=== PATIENT | female | born 1950 | race Caucasian/White ===

== ENCOUNTER 2019-06-19 14:45 | Inpatient (IN) | payer MEDICARE, OTHER ==
[~2019-06-19] VITALS: Ht 160 cm; Wt 64.1 kg
[2019-06-19 15:28] LABS: BASO % 1 % (0-3); EOS % 1 % (0-3); HEMATOCRIT 46.6 % (36.0-47.0); HEMOGLOBIN 15.6 g/dL (12.0-15.5); LYMPH # 1.1 x10^3/uL (1.0-4.8); LYMPH % 18 % (24-48); MEAN CORPUSCULAR HEMOGLOBIN 33 pg (25-35); MEAN CORPUSCULAR HGB CONC 34 g/dL (31-37); MEAN CORPUSCULAR VOLUME 97 fL (79-100); MONO # 0.4 x10^3/uL (0.0-1.1); MONO % 6 % (0-9); NEUT # 4.5 x10^3uL (1.8-7.7); NEUT % 74 % (31-73); PLATELET COUNT 168 x10^3/uL (140-400); RED CELL DISTRIBUTION WIDTH 14.6 % (11.5-14.5)
[2019-06-19 15:47] LABS: ALBUMIN 3.3 g/dL (3.4-5.0); ALBUMIN/GLOBULIN RATIO 0.8 (1.0-1.7); CALCIUM 9.1 mg/dL (8.5-10.1); GFR 55.1; POTASSIUM 3.8 mmol/L (3.5-5.1); TOTAL BILIRUBIN 0.8 mg/dL (0.2-1.0); TOTAL PROTEIN 7.6 g/dL (6.4-8.2)
--- NOTE | 2019-06-19 16:18 | RAD ---
CT HEAD WO CONTRAST, CHEST AP ONLY Clinical indications: Altered mental status. Chest pain. NONCONTRAST HEAD CT Technique: Noncontrast axial cross sectional scanning of the head was performed. PQRS compliance Statement One or more of the following individualized dose reduction techniques were utilized for this study: 1. Automated exposure control 2. Adjustment of the mA and/or kV according to patient size 3. Use of iterative reconstruction technique COMPARISON: None available. Findings: No acute intracranial hemorrhage or midline shift or mass-effect or hydrocephalus or extra-axial fluid collection is seen. A large focus of encephalomalacia is seen involving the right temporal and occipital lobes consistent with an old cortical infarct. Old small lacunar infarcts of the brainstem and the upper right thalamus are seen. There is mild periventricular white matter hypodensity present within the parietal region of the centrum semiovale on the right side consistent with chronic small vessel ischemic disease here. No skull fracture or pneumocephalus is seen. No opacification of the mastoid sinuses or the middle ear cavities or the paranasal sinuses is seen. The maxillary sinuses are not completely seen in this study. Impression: No acute intracranial hemorrhage is seen. Old ischemic disease. CHEST AP ONLY Indications: Same. COMPARISON: None available. Findings: Bilateral diffuse interstitial lung disease is seen which may be acute or chronic in nature. No May B line's are seen. No lung mass or lung consolidation is evident. No pleural effusion or pneumothorax is seen. The heart size is prominent some of which is due to AP magnification. Sternotomy is evident. The mediastinum is unremarkable. Cephalization of pulmonary flow is seen. IMPRESSION: Bilateral interstitial lung disease and cephalization of pulmonary flow which may be acute or chronic in nature. Prominent heart size some of which is due to AP magnification. Electronically signed by: Liang Sanchez MD (06/19/2019 4:15 PM) [place] [id number]
[2019-06-19 17:18] LABS: BACTERIA,URINE 0 /HPF (0-FEW); BILIRUBIN,URINE NEG (NEG); CLARITY,URINE CLEAR; COLOR,URINE YELLOW; GLUCOSE,URINE NEG (NEG); NITRITE,URINE NEG (NEG); SQUAMOUS EPITHELIAL CELL,UR FEW /LPF; UROBILINOGEN,URINE 2 mg/dL (0.2 mg/dL)
--- NOTE | 2019-06-19 17:40 | ED.ADGEN ---
Past History Past Medical History: Anxiety, CHF, COPD, Depression, GERD, Hypertension Past Surgical History: Cancer Surgery, Other Alcohol Use: None Drug Use: None Adult General Chief Complaint Chief Complaint Altered mental status HPI HPI Patient is a [68-year-old female history of anxiety, depression, hypertension and left leg [id number] patient who presents with pressured speech, disorientation and confusion according to patient's family members and guardian this morning. Patient was recently treated for urinary tract infection yesterday CTA. No reported fever or back pain, nausea vomiting or sweats. No chest pain abdominal pain or flank pain. Family denies any history of psychosis but was scheduled for outpatient psychological evaluation in 1 month. Patient diverted from the [facility] patient alert and oriented to person and cooperative on ED arrival. Patient said with pressured speech, flight of ideas and manic behavior[] Review of Systems Review of Systems Review symptoms as per history of present illness. Due to the patient's All other systems were reviewed and found to be within normal limits, except as documented in this note. Allergies Allergies Allergies Coded Allergies Type Severity Reaction Last Updated Verified acetaminophen Allergy Unknown 06/19/19 Yes oxycodone Allergy Unknown 06/19/19 Yes Physical Exam Physical Exam Constitutional: Well developed, well nourished, smiling, hyper animated and euphoric.[] HENT: Normocephalic, atraumatic, bilateral external ears normal, oropharynx moist. [] Eyes: PERRLA, EOMI, conjunctiva normal, no discharge. [] Neck: Normal range of motion, no tenderness, supple, no stridor. [] Cardiovascular:Heart rate regular rhythm, no murmur [] Lungs & Thorax: Bilateral breath sounds clear to auscultation [] Abdomen: Bowel sounds normal, soft, no tenderness. [] Skin: Warm, dry, no erythema, no rash. [] Back: No tenderness, no CVA tenderness. [] Extremities: No tenderness, left knee above amputation[] Neurologic: Alert and oriented X person, normal motor function, normal sensory function, no focal deficits noted. [] Psychologic: Affect manic, pH pressured, judgment impaired,. Braxton speech with flight of ideas[] Current Patient Data Vital Signs Vital Signs Date Time Temp Pulse Resp B/P (MAP) Pulse Ox O2 Delivery O2 Flow Rate FiO2 06/19/19 16:49 89 18 135/86 (102) 98 Room Air 06/19/19 14:55 98.7 Lab Results Laboratory Tests Test 06/19/19 15:15 06/19/19 16:55 White Blood Count 6.0 x10^3/uL (4.0-11.0) Red Blood Count 4.80 x10^6/uL (3.50-5.40) Hemoglobin 15.6 g/dL (12.0-15.5) H Hematocrit 46.6 % (36.0-47.0) Mean Corpuscular Volume 97 fL (79-100) Mean Corpuscular Hemoglobin 33 pg (25-35) Mean Corpuscular Hemoglobin Concent 34 g/dL (31-37) Red Cell Distribution Width 14.6 % (11.5-14.5) H Platelet Count 168 x10^3/uL (140-400) Neutrophils (%) (Auto) 74 % (31-73) H Lymphocytes (%) (Auto) 18 % (24-48) L Monocytes (%) (Auto) 6 % (0-9) Eosinophils (%) (Auto) 1 % (0-3) Basophils (%) (Auto) 1 % (0-3) Neutrophils # (Auto) 4.5 x10^3uL (1.8-7.7) Lymphocytes # (Auto) 1.1 x10^3/uL (1.0-4.8) Monocytes # (Auto) 0.4 x10^3/uL (0.0-1.1) Eosinophils # (Auto) 0.0 x10^3/uL (0.0-0.7) Basophils # (Auto) 0.0 x10^3/uL (0.0-0.2) Sodium Level 138 mmol/L (136-145) Potassium Level 3.8 mmol/L (3.5-5.1) Chloride Level 100 mmol/L (98-107) Carbon Dioxide Level 30 mmol/L (21-32) Anion Gap 8 (6-14) Blood Urea Nitrogen 19 mg/dL (7-20) Creatinine 1.0 mg/dL (0.6-1.0) Estimated GFR (Cockcroft-Gault) 55.1 BUN/Creatinine Ratio 19 (6-20) Glucose Level 107 mg/dL (70-99) H Calcium Level 9.1 mg/dL (8.5-10.1) Total Bilirubin 0.8 mg/dL (0.2-1.0) Aspartate Amino Transferase (AST) 24 U/L (15-37) Alanine Aminotransferase (ALT) 20 U/L (14-59) Alkaline Phosphatase 172 U/L (46-116) H Troponin I Quantitative 0.018 ng/mL (0-0.055) Total Protein 7.6 g/dL (6.4-8.2) Albumin 3.3 g/dL (3.4-5.0) L Albumin/Globulin Ratio 0.8 (1.0-1.7) L Urine Collection Type Unknown Urine Color Yellow Urine Clarity Clear Urine pH 8.5 Urine Specific [place] 1.010 Urine Protein 30 mg/dl (NEG-TRACE) Urine Glucose (UA) Neg mg/dL (NEG) Urine Ketones (Stick) 15 mg/dL (NEG) Urine Blood Neg (NEG) Urine Nitrite Neg (NEG) Urine Bilirubin Neg (NEG) Urine Urobilinogen Dipstick 2 mg/dL (0.2 mg/dL) Urine Leukocyte Esterase Trace (NEG) Urine RBC 1-2 /HPF (0-2) Urine WBC 5-10 /HPF (0-4) Urine Squamous Epithelial Cells Few /LPF Urine Bacteria 0 /HPF (0-FEW) EKG EKG [EKG: Reviewed] Radiology/Procedures Radiology/Procedures [] Course & Med Decision Making Course & Med Decision Making Pertinent Labs and Imaging studies reviewed. (See chart for details) [Patient with acute onset psychotic episode without obvious medical cause. Psychiatric screening assessment requested for inpatient. Care to be endorsed endorsed to oncoming [facility] at 1800 with disposition pending.] Final Impression Final Impression [] Dragon Disclaimer Dragon Disclaimer This electronic medical record was generated, in whole or in part, using a voice recognition dictation system. SHINE SWANSON DO Jun 19, 2019 17:40
[2019-06-19] MEDS ORDERED: METHYL SALICYLATE/MENTHOL TOPICAL OINTMENT 57GM TUBE. TP PRN (20:45)
[2019-06-19] MEDS ORDERED: MAG HYDROX/AL HYDROX/SIMETH 30 ML ORAL.SUSP PO PRN (20:45)
[2019-06-19] MEDS ORDERED: MAGNESIUM HYDROXIDE 2,400 MG/30 ML ORAL.SUSP. PO PRN (20:45)
[2019-06-19] MEDS ORDERED: GABA400C7 PO (20:56)
[2019-06-19] MEDS ORDERED: ATOR40TA59 PO (20:56)
[2019-06-19] MEDS ORDERED: GABA300C8 PO (20:56)
[2019-06-19] MEDS ORDERED: OXYB5TAB10 PO (20:56)
[2019-06-19] MEDS ORDERED: LISI-338 PO (20:56)
[2019-06-19] MEDS ORDERED: METO25TA4 PO (20:56)
[2019-06-19] MEDS ORDERED: ASPI325T11 PO (20:56)
[2019-06-19] MEDS ORDERED: BUDE10.2 IH (20:56)
[2019-06-19] MEDS ORDERED: ALEN70TA6 PO (20:56)
[2019-06-19] MEDS ORDERED: FURO40TA4 PO (20:56)
[2019-06-19] MEDS ORDERED: MULT1TAB52 PO (20:56)
[2019-06-19] MEDS ORDERED: DULO30CA2 PO (20:56)
[2019-06-19] MEDS ORDERED: CHOL10003 PO (20:56)
[2019-06-19] MEDS ORDERED: LORA10TA3 PO (20:56)
[2019-06-19] MEDS ORDERED: CALC-157 PO (20:56)
[2019-06-19] MEDS ORDERED: LACT1CAP6 PO (20:56)
[2019-06-19] MEDS ORDERED: NON FORMULARY ITEM (Budesonide/Formoterol Fumarate (Symbicort 160-4.5 Mcg Inhaler) 2 PUFF) IH SCH (21:00)
[2019-06-19] MEDS ORDERED: HYDR-2155 PO (21:42)
[2019-06-19] MEDS: GABAPENTIN 400 MG CAPSULE. PO SCH (21:42)
[2019-06-19] MEDS: LACTOBACILLUS RHAMNOSUS GG 1 CAPSULE. PO SCH (21:42)
[2019-06-19] MEDS: ATORVASTATIN CALCIUM 20 MG TABLET PO SCH (21:43)
[2019-06-19] MEDS: CALCIUM CARB/VIT D3 500/200 TABLET PO SCH (21:43)
[2019-06-19] MEDS: OXYBUTYNIN CHLORIDE 5 MG TABLET PO SCH (21:43)
[2019-06-19] MEDS: METOPROLOL TART IMMED RELEASE 25 MG TABLET PO SCH (21:44)
[2019-06-19] MEDS: HYDROcodone/APAP 5/325MG 1 TAB TABLET PO PRN (21:50)
[2019-06-19 22:49] VITALS: BP 174/95
[2019-06-19 22:52] LABS: BARBITURATES NEG (NEG); BENZODIAZEPINES NEG (NEG); CANNABINOIDS NEG (NEG); COCAINE NEG (NEG); METHADONE NEG (NEG); OPIATES POS (NEG); PHENCYCLIDINE NEG (NEG)
[2019-06-19 22:58] LABS: AMPHETAMINE/METHAMPHETAMINE NEG (NEG)
[2019-06-20] MEDS ORDERED: ALBUTEROL SULFATE 2.5 MG/3 ML NEBU. ONE (05:01)
[2019-06-20 05:44] VITALS: BP 146/81
[2019-06-20] MEDS: ALBUTEROL SULFATE 2.5 MG/3 ML NEBU. NEB SCH ×4 (06:04→20:00)
--- NOTE | 2019-06-20 08:01 | EKG ---
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
[2019-06-20] MEDS ORDERED: ONDANSETRON ODT 4 MG TAB.RAPDIS PO PRN (08:30)
[2019-06-20] MEDS: NICOTINE 21MG PATCH. TD SCH (08:36)
[2019-06-20] MEDS: CHOLECALCIFEROL (VITAMIN D3) 1,000 UNIT TABLET PO SCH ×2 (08:38→12:30)
[2019-06-20] MEDS: FUROSEMIDE 40 MG TABLET PO SCH ×2 (08:38→12:30)
[2019-06-20] MEDS: LACTOBACILLUS RHAMNOSUS GG 1 CAPSULE. PO SCH ×3 (08:38→19:38)
[2019-06-20] MEDS: GABAPENTIN 300 MG CAPSULE. PO SCH ×2 (08:38→12:30)
[2019-06-20] MEDS: LISINOPRIL 5 MG TABLET. PO SCH ×2 (08:38→12:30)
[2019-06-20] MEDS: CETIRIZINE HCL 10 MG TABLET PO SCH ×2 (08:39→12:30)
[2019-06-20] MEDS: CALCIUM CARB/VIT D3 500/200 TABLET PO SCH ×3 (08:39→19:38)
[2019-06-20] MEDS: ASPIRIN ENTERIC COATED 325 MG TABLET.DR. PO SCH ×2 (08:39→12:30)
[2019-06-20] MEDS: MULTIVITAMIN with MINERAL TABLET. PO SCH ×2 (08:39→12:30)
[2019-06-20] MEDS: METOPROLOL TART IMMED RELEASE 25 MG TABLET PO SCH ×2 (08:39→19:34)
[2019-06-20] MEDS: OXYBUTYNIN CHLORIDE 5 MG TABLET PO SCH ×3 (08:40→19:35)
[2019-06-20] MEDS ORDERED: DULoxetine HCL 30 MG CAPSULE.DR PO SCH (09:00)
[2019-06-20] MEDS: BUDESONIDE 0.5 MG/2 ML NEBU NEB SCH ×2 (10:01→20:00)
[2019-06-20 16:17] VITALS: BP 151/85
[2019-06-20] MEDS: ATORVASTATIN CALCIUM 20 MG TABLET PO SCH (19:33)
[2019-06-20] MEDS: GABAPENTIN 400 MG CAPSULE. PO SCH (19:35)
--- NOTE | 2019-06-20 21:50 | PDOC ---
Exam Note: Vick Note: Please also refer to the separate dictated note~for this date of service dictated separately.~Patient seen individually. Discussed the patient with Nursing staff reviewed the chart.~Reviewed interim history and current functioning. Reviewed vital signs,~Labs/ Radiology~and current medications noted below. Continue current treatment with the changes noted in the dictated addendum note Assessment: Vital Signs/I&O: Vital Signs Date Time Temp Pulse Resp B/P (MAP) Pulse Ox O2 Delivery O2 Flow Rate FiO2 06/20/19 20:20 94 Room Air 06/20/19 19:38 87 151/85 06/20/19 16:17 97.0 16 Labs: Laboratory Tests Test 06/19/19 22:20 Iron Level 43 ug/dL (50-170) L Total Iron Binding Capacity 328 ug/dL (250-450) Iron Saturation 13 % (15-34) L Triglycerides Level 81 mg/dL (0-150) Cholesterol Level 119 mg/dL (0-200) LDL Cholesterol, Calculated 64 mg/dL (0-100) VLDL Cholesterol, Calculated 16 mg/dL (0-40) Non-HDL Cholesterol Calculated 80 mg/dL (0-129) HDL Cholesterol 39 mg/dL (40-60) L Cholesterol/HDL Ratio 3.0 25-Hydroxy Vitamin D Total 66.9 ng/mL (30-100) Treponema pallidum Antibody Nonreactive (Nonreactive) Current Medications: Meds: Current Medications Medications (Trade) Dose Ordered Sig/Jesse Route PRN Reason Start Time Stop Time Status Last Admin Dose Admin Nicotine (Nicoderm Cq 21mg) 1 patch DAILY TD 06/20/19 09:00 06/20/19 08:40 Duloxetine HCl (Cymbalta) 90 mg DAILY PO 06/20/19 09:00 06/20/19 18:01 DC 06/20/19 08:40 Albuterol Sulfate (Ventolin) 2.5 mg RTQID NEB 06/20/19 08:00 06/20/19 20:55 Budesonide (Pulmicort) 0.5 mg RTBID NEB 06/20/19 08:00 06/20/19 20:55 I have reviewed the current psychotropics carefully including drug interactions. Risk benefit ratio favors no change other than as noted in my dictated progress note. Diagnosis: Problems: (1) Anxiety disorder (2) Bipolar 1 disorder, mixed, moderate (3) Dementia, vascular, with delusions (4) Dementia, vascular, with depression (5) Dementia in Alzheimer's disease with depression (6) Dementia in Alzheimer's disease with delusions (7) Impulse control disorder ANGEL VILLA MD Jun 20, 2019 21:50
[2019-06-21 04:09] LABS: HEMOGLOBIN A1C 5.8 % (4.8-5.6)
[2019-06-21] MEDS: BUDESONIDE 0.5 MG/2 ML NEBU NEB SCH ×2 (04:51→20:07)
[2019-06-21] MEDS: ALBUTEROL SULFATE 2.5 MG/3 ML NEBU. NEB SCH ×4 (04:51→20:07)
[2019-06-21] MEDS: ALENDRONATE SODIUM 35 MG TABLET PO SCH (05:16)
[2019-06-21 06:36] VITALS: BP 131/80
[2019-06-21] MEDS: CHOLECALCIFEROL (VITAMIN D3) 1,000 UNIT TABLET PO SCH (07:45)
[2019-06-21] MEDS: LACTOBACILLUS RHAMNOSUS GG 1 CAPSULE. PO SCH ×2 (07:45→20:32)
[2019-06-21] MEDS: NICOTINE 21MG PATCH. TD SCH (07:45)
[2019-06-21] MEDS: MULTIVITAMIN with MINERAL TABLET. PO SCH (07:46)
[2019-06-21] MEDS: ASPIRIN ENTERIC COATED 325 MG TABLET.DR. PO SCH (07:46)
[2019-06-21] MEDS: OXYBUTYNIN CHLORIDE 5 MG TABLET PO SCH ×2 (07:46→20:34)
[2019-06-21] MEDS: LISINOPRIL 5 MG TABLET. PO SCH (07:46)
[2019-06-21] MEDS: CETIRIZINE HCL 10 MG TABLET PO SCH (07:46)
[2019-06-21] MEDS: CALCIUM CARB/VIT D3 500/200 TABLET PO SCH ×2 (07:46→20:33)
[2019-06-21] MEDS: METOPROLOL TART IMMED RELEASE 25 MG TABLET PO SCH ×2 (07:47→20:35)
[2019-06-21] MEDS: FUROSEMIDE 40 MG TABLET PO SCH (07:51)
[2019-06-21] MEDS: GABAPENTIN 300 MG CAPSULE. PO SCH (07:53)
--- NOTE | 2019-06-21 12:27 | CONS ---
DATE OF CONSULTATION: REASON FOR CONSULTATION: Medical management. HISTORY OF PRESENT ILLNESS: The patient is a 68-year-old female patient, who was admitted from home. She was supposed to go to [facility]. She was diverted and came to our Emergency Room. She presented with pressured speech, disorientation, confusion according to the patient's family members and guardian this morning. She was recently treated for urinary tract infection and was admitted to [facility] for manic episode with anxiety and depression on a background of bipolar disorder, manic with psychotic symptoms. She is here for inpatient psychiatric stabilization. Apparently, she has been refusing to take her medication at home, has been taking only [place] for her phantom pain. PAST MEDICAL HISTORY: Significant for hypertension, social phobia, chronic obstructive lung disease, vitamin D deficiency, coronary artery disease, status post coronary artery bypass graft surgery. She has also osteoporosis, chronic diastolic congestive heart failure, pulmonary hypertension, and peripheral vascular disease. She is status post left above-knee amputation. She has phantom limb syndrome, depression, incontinence, recurrent major depression and fractured left radius status post open reduction and internal fixation. PAST SURGICAL HISTORY: Significant for coronary artery bypass graft surgery and left above knee amputation. FAMILY HISTORY: Her mother has disease of natural causes. Father of heart failure. Her aunt has of breast cancer, brother of myocardial infarction. 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 She smokes a carton for 5 days. She does not drink alcohol or use any recreational drugs. She is postmenopausal. She is 2, para 2. Her last mammogram was in 2017. Her last Pap smear was abnormal. ALLERGIES: She is allergic to OXYCODONE and VENLAFAXINE. MEDICATIONS: She is currently on following medications: She is on loratadine 10 mg once a day, atorvastatin calcium 40 mg at bedtime, metoprolol tartrate 12.5 mg twice a day, lisinopril 5 mg daily, aspirin 325 mg once a day, hydrocodone/APAP 5/325 one tablet twice a day, gabapentin 600 mg daily, gabapentin 800 mg at bedtime. She is on duloxetine 90 mg daily. She is on calcium carbonate with vitamin D 1 tablet twice a day. She is on furosemide 40 mg once a day, Symbicort 2 puffs twice a day, lactobacillus acidophilus probiotic 1 capsule twice a day and oxybutynin chloride 2.5 mg twice a day, ergocalciferol, vitamin D 2000 international units once a day, multivitamin 1 tablet once a day, alendronate 70 mg tablet once a week. REVIEW OF SYSTEMS: As per history of present illness. PHYSICAL EXAMINATION GENERAL: When I examined her this afternoon, she looked somewhat pale. No jaundice, cyanosis or thyromegaly. No jugular venous distention. No lower limb edema. VITAL SIGNS: Her heart rate was 105. Her blood pressure was 146/81, temperature was 97.4, respiratory rate 22, and oxygen saturation was 94%. HEAD, EYES, EARS, NOSE AND THROAT: Showed normocephalic, atraumatic. NECK: Supple. HEART: Showed normal first and second heart sounds with no gallop, rub or murmur. CHEST: Clear to auscultation. No crepitation or rhonchi. ABDOMEN: Distended, soft, nontender. NEUROLOGIC: She is awake, alert, but extremely confused and disoriented; however, all her cranial nerves are intact. EXTREMITIES: She moves extremities without difficulty. She has left above knee amputation. She is wheelchair bound. LABORATORY DATA: Showed a white cell count 6000, hemoglobin 15.6, hematocrit 46, MCV 97, and platelet count of 168,000. Her serum sodium was 138, potassium 3.8, chloride 100, bicarbonate 30, anion gap of 8, BUN 19, creatinine 1, estimated GFR was 55 mL per minute. Her glucose 107, calcium was 9.1. Serum iron, TIBC and iron saturation are consistent with iron deficiency anemia. Discontinue Xanax and put her on clonazepam, I do not know how much she was on before. Her serum total bilirubin, AST, ALT, alkaline phosphatase were normal. Total protein was 7.6, albumin was 3.3. Serum triglycerides were 81, total cholesterol 119, LDL cholesterol 64, VLDL was 16, HDL cholesterol was 59 and the ratio was 3. A 25-hydroxyvitamin D was 66.9, which is within normal range. Her TSH was 0.915. Her urinalysis showed the urine was yellow, clear with a pH of 8.5, specific gravity of 1.010. There was small amount of protein. The urine was negative for glucose, trace of ketones, negative for blood, nitrite and trace of leukocyte esterase, 1-2 rbc's, 5-10 wbc's, and no bacteria. Toxic screen was positive for opiates, negative for methadone, barbiturates, phencyclidine, amphetamine, methamphetamine, benzodiazepine, cocaine, cannabinoids, alcohol, and ethyl alcohol. Her treponema pallidum antibodies were nonreactive. Her CT scan of the head showed that there is no acute intracranial hemorrhage or midline shift or mass effect or hydrocephalus or extraaxial fluid collection is seen. A large focus of encephalomalacia is seen involving the right temporal and occipital lobes consistent with an old cortical infarct. Old small lacunar infarcts of the brain stem and the upper right thalamus are seen. There is mild periventricular white matter hypodensity present within the parietal region of the centrum semiovale on the right side consistent with chronic small vessel ischemic disease. No skull fracture or pneumocephalus is seen. No opacification of the mastoid cells or middle ear cavities or the paranasal sinuses is seen. The maxillary sinuses are not completely seen in ____. Her chest x-ray showed bilateral interstitial lung disease with cephalization of pulmonary flow, which may be acute or chronic in nature. ASSESSMENT: In summary, this is a 68-year-old female patient who was admitted with shanda, anxiety and depression. She has been refusing medication, very disorganized with flight of ideas and all this in a background of bipolar disorder, manic with psychotic symptoms. Medically, she has multiple medical problems including chronic low back pain, cervicalgia, chronic ankle pain, tendinitis, benign hypertension, chronic obstructive pulmonary disease, vitamin D deficiency, coronary artery disease, status post coronary artery bypass graft surgery, osteoporosis, pulmonary hypertension, chronic diastolic heart failure, peripheral vascular disease, status post left above-knee amputation. She has phantom limb syndrome, incontinence and fractured left radius. Medically, her vital signs are stable. Her lab works are all within acceptable range. The patient drinks alcohol heavily according to her and also smokes about 2 packs of cigarettes a day, and I am worried that she might go into alcohol withdrawal syndrome and we will start her on alcohol withdrawal protocol here. I will continue all her other medications for the time being. Thank you, Dr. Scott for allowing me to participate in the care of this patient. ANGELITA ADRIAN MD DR: LEÓN/rusty JOB#: [id number] / [id number]
[2019-06-21 15:54] VITALS: BP 90/58
--- NOTE | 2019-06-21 15:57 | HP ---
ADMIT DATE: PSYCHIATRIC ADMISSION HISTORY/EVALUATION Date of Service: 06/20/2019 The patient was seen individually in the evening of 06/20/2019 for this evaluation. I previously discussed the patient with nursing staff. On the day of admission of 06/19/2019, reviewed the chart, and reviewed referral information from the [facility]. IDENTIFYING DATA: The patient is a 68-year-old female referred to us from the [facility] and her primary care physician, and psychiatrist on account of extreme disorganization, agitation, being extremely manic, anxious, intermittently depressed. She was brought into the Emergency Room, referred by the [facility], and then had a Telepsychiatry consultation, which recommended inpatient psychiatric hospitalization. At times, the patient was talking in Peruvian, Guyanese, and then would go back to [place]. She was disorganized, manic, hyperverbal, and paranoid. She lives alone in her home, was increasingly confused and was dangerous in her behaviors, thus resulting in this referral. CHIEF COMPLAINT: "My memory is okay. No, I don't know the year. I don't know the name of the president. All that does not matter." HISTORY OF PRESENT ILLNESS: We are awaiting psychiatric records from the [facility], but in the interim, information is reflective of the patient's diagnosis of bipolar disorder versus major depressive disorder and progressive memory deficits, more short term than meterman. She has been residing at home and her daughter, Linh, has been assisting her in the home. Most recently, she has had significant sleep and appetite changes, psychotic symptoms, is appeared manic, disorganized behaviors have been deemed dangerous, unmanageable outpatient at home, and has failed outpatient psychiatric interventions resulting in this referral. The patient minimizes her memory deficits and mood symptoms. PAST PSYCHIATRIC HISTORY: As above. MEDICAL HISTORY: Positive for left above-knee amputation, bypass surgery, hypertension, hyperlipidemia, coronary artery disease, peripheral vascular disease, COPD, CHF, chronic pain, and osteoporosis. CODE STATUS: Full code. ALLERGIES: VENLAFAXINE and OXYCODONE. DIET: Regular. Takes medications whole. Ambulates with a walker when wearing prosthesis. Her daughter, Linh King, is her power of fuel cell designer, who coordinated this hospitalization from the [facility]. FAMILY HISTORY: Noncontributory. SOCIAL HISTORY: No alcohol, drug abuse, physical, sexual or elder abuse history is noted. She is not known to be a perpetrator. REACTION TO HOSPITALIZATION: The patient accepting of it. ASSETS: Supportive family. MENTAL STATUS EXAMINATION: The patient was seen individually in the evening of 06/20/2019. She is oriented to herself, somewhat hyperverbal unaware of the year or who the president is, unable to do serial 7's, unclear in her perception of the reason for this hospitalization. Insight, judgment, recent memory is impaired. Language function intact. Attention span short. Mood and affect remain somewhat grandiose, labile. She is paranoid, psychotic. LABORATORY DATA: Reviewed. IMPRESSION: Probable bipolar disorder, mixed with psychotic features; major depressive disorder, recurrent with psychotic features, but we are awaiting records from the [facility] for clarification of diagnosis. From my initial assessment, she is not oriented to year, or situation or the name of the president and may well have a diagnosis of major neurocognitive disorder, probably vascular with delusion, behavioral disturbance; anxiety disorder, unspecified; impulse control disorder, unspecified. Rest as above. PLAN: Admit to geropsychiatry unit at [facility]. I will see the patient daily individually from a psychiatric standpoint. Medical followup with Dr. Nelson. We will obtain all past psychiatric records from the [facility]. Continue Neurontin 600 mg daily, 800 mg at bedtime, Zyprexa was added p.r.n. and then consider adding a mood stabilizer and other treatments for her mood disorder once we get the past records. Estimated length of stay 10-12 days. DISPOSITION PLAN: The patient will probably need a more structured placement than returning to home. MAN Shai VILLA MD DR: TOMI/rusty JOB#: [id number] / [id number]
[2019-06-21] MEDS: GABAPENTIN 400 MG CAPSULE. PO SCH (20:33)
[2019-06-21] MEDS: ATORVASTATIN CALCIUM 20 MG TABLET PO SCH (20:33)
--- NOTE | 2019-06-21 21:06 | PDOC ---
Exam Note: Vick Note: Please also refer to the separate dictated note~for this date of service dictated separately.~Patient seen individually. Discussed the patient with Nursing staff reviewed the chart.~Reviewed interim history and current functioning. Reviewed vital signs,~Labs/ Radiology~and current medications noted below. Continue current treatment with the changes noted in the dictated addendum note Assessment: Vital Signs/I&O: Vital Signs Date Time Temp Pulse Resp B/P (MAP) Pulse Ox O2 Delivery O2 Flow Rate FiO2 06/21/19 20:35 81 90/58 06/21/19 20:09 94 Room Air 06/21/19 15:54 98.2 18 I & O 06/20/19 06/20/19 06/21/19 14:59 22:59 06:59 Intake Total 120 ml 240 ml Balance 120 ml 240 ml Current Medications: Meds: Current Medications Medications (Trade) Dose Ordered Sig/Jesse Route PRN Reason Start Time Stop Time Status Last Admin Dose Admin Alendronate Sodium (Fosamax) 70 mg WEEKLYAC PO 06/21/19 07:00 06/21/19 05:16 I have reviewed the current psychotropics carefully including drug interactions. Risk benefit ratio favors no change other than as noted in my dictated progress note. Diagnosis: Problems: (1) Anxiety disorder (2) Bipolar 1 disorder, mixed, moderate (3) Dementia, vascular, with delusions (4) Dementia, vascular, with depression (5) Dementia in Alzheimer's disease with depression (6) Dementia in Alzheimer's disease with delusions (7) Impulse control disorder ANGEL VILLA MD Jun 21, 2019 21:06
--- NOTE | 2019-06-21 23:52 | PN ---
DATE: 06/21/2019 PSYCHIATRIC PROGRESS NOTE This note covers elements not covered in my initial note on 06/21. SUBJECTIVE: The patient was seen individually and staffed at a treatment team meeting with the entire team. The patient slept 6-1/2 hours previous night. Reviewed the patient's history. She is sleeping average 5-1/2 hours. Appetite 25-50%. She had an episode of emesis yesterday, at times talking in a different language. Compliant with bedtime medications, refused the daytime medications. REVIEW OF SYSTEMS: Ambulation impaired with walker. No CV, , pulmonary, eye system symptoms on review. MENTAL STATUS EXAM: Oriented to herself and situation. Speech is coherent, a little pressured at times. Abstraction fair, computation impaired, language function intact, attention span short. Mood and affect somewhat anxious, labile. LABORATORY DATA: Labs reviewed. IMPRESSION: Rule out bipolar disorder, mixed with psychotic features; major neurocognitive disorder; Alzheimer vascular with delusions; behavioral disturbance. Rest unchanged. PLAN: [facility] Continue current psychotropics including duloxetine 90 mg a day. Adjust further as clinically indicated. MAN Shai VILLA MD DR: TOMI/rusty JOB#: [id number] / [id number]
[2019-06-22] MEDS: ALBUTEROL SULFATE 2.5 MG/3 ML NEBU. NEB SCH ×4 (05:07→20:17)
[2019-06-22 06:21] VITALS: BP 129/78
[2019-06-22] MEDS: ASPIRIN ENTERIC COATED 325 MG TABLET.DR. PO SCH (08:37)
[2019-06-22] MEDS: OXYBUTYNIN CHLORIDE 5 MG TABLET PO SCH ×2 (08:37→20:18)
[2019-06-22] MEDS: LACTOBACILLUS RHAMNOSUS GG 1 CAPSULE. PO SCH ×2 (08:37→20:17)
[2019-06-22] MEDS: MULTIVITAMIN with MINERAL TABLET. PO SCH (08:37)
[2019-06-22] MEDS: FUROSEMIDE 40 MG TABLET PO SCH (08:37)
[2019-06-22] MEDS: METOPROLOL TART IMMED RELEASE 25 MG TABLET PO SCH ×2 (08:38→20:19)
[2019-06-22] MEDS: CHOLECALCIFEROL (VITAMIN D3) 1,000 UNIT TABLET PO SCH (08:38)
[2019-06-22] MEDS: CETIRIZINE HCL 10 MG TABLET PO SCH (08:38)
[2019-06-22] MEDS: NICOTINE 21MG PATCH. TD SCH (08:39)
[2019-06-22] MEDS: CALCIUM CARB/VIT D3 500/200 TABLET PO SCH ×2 (08:39→20:18)
[2019-06-22] MEDS: LISINOPRIL 5 MG TABLET. PO SCH (08:39)
[2019-06-22] MEDS: GABAPENTIN 300 MG CAPSULE. PO SCH (08:51)
[2019-06-22] MEDS: BUDESONIDE 0.5 MG/2 ML NEBU NEB SCH ×2 (11:25→20:17)
[2019-06-22 15:47] VITALS: BP 117/67
[2019-06-22] MEDS: ATORVASTATIN CALCIUM 20 MG TABLET PO SCH (20:17)
[2019-06-22] MEDS: GABAPENTIN 400 MG CAPSULE. PO SCH (20:19)
--- NOTE | 2019-06-22 22:00 | PDOC ---
Exam Note: Vick Note: Please also refer to the separate dictated note~for this date of service dictated separately.~Patient seen individually. Discussed the patient with Nursing staff reviewed the chart.~Reviewed interim history and current functioning. Reviewed vital signs,~Labs/ Radiology~and current medications noted below. Continue current treatment with the changes noted in the dictated addendum note Assessment: Vital Signs/I&O: Vital Signs Date Time Temp Pulse Resp B/P (MAP) Pulse Ox O2 Delivery O2 Flow Rate FiO2 06/22/19 20:19 60 110/60 06/22/19 20:18 97 Room Air 06/22/19 15:47 97.4 18 I & O 06/21/19 06/21/19 06/22/19 14:59 22:59 06:59 Intake Total 720 ml 480 ml 420 ml Balance 720 ml 480 ml 420 ml Current Medications: I have reviewed the current psychotropics carefully including drug interactions. Risk benefit ratio favors no change other than as noted in my dictated progress note. Diagnosis: Problems: (1) Anxiety disorder (2) Bipolar 1 disorder, mixed, moderate (3) Dementia, vascular, with delusions (4) Dementia, vascular, with depression (5) Dementia in Alzheimer's disease with depression (6) Dementia in Alzheimer's disease with delusions (7) Impulse control disorder ANGEL VILLA MD Jun 22, 2019 22:00
[2019-06-23] MEDS: ALBUTEROL SULFATE 2.5 MG/3 ML NEBU. NEB SCH ×3 (05:02→20:24)
[2019-06-23 06:06] VITALS: BP 115/75
[2019-06-23] MEDS: ASPIRIN ENTERIC COATED 325 MG TABLET.DR. PO SCH (08:20)
[2019-06-23] MEDS: FUROSEMIDE 40 MG TABLET PO SCH (08:21)
[2019-06-23] MEDS: OXYBUTYNIN CHLORIDE 5 MG TABLET PO SCH ×2 (08:21→20:15)
[2019-06-23] MEDS: LACTOBACILLUS RHAMNOSUS GG 1 CAPSULE. PO SCH ×2 (08:21→20:14)
[2019-06-23] MEDS: METOPROLOL TART IMMED RELEASE 25 MG TABLET PO SCH ×2 (08:21→20:28)
[2019-06-23] MEDS: CALCIUM CARB/VIT D3 500/200 TABLET PO SCH ×2 (08:23→20:15)
[2019-06-23] MEDS: GABAPENTIN 300 MG CAPSULE. PO SCH (08:23)
[2019-06-23] MEDS: CETIRIZINE HCL 10 MG TABLET PO SCH (08:28)
[2019-06-23] MEDS: buPROPion XL 150 MG TAB.ER.24H PO SCH (08:28)
[2019-06-23] MEDS: LISINOPRIL 5 MG TABLET. PO SCH (08:28)
[2019-06-23] MEDS: MULTIVITAMIN with MINERAL TABLET. PO SCH (08:28)
[2019-06-23] MEDS: CHOLECALCIFEROL (VITAMIN D3) 1,000 UNIT TABLET PO SCH (08:28)
[2019-06-23] MEDS: NICOTINE 21MG PATCH. TD SCH (08:29)
[2019-06-23] MEDS: BUDESONIDE 0.5 MG/2 ML NEBU NEB SCH ×2 (13:08→20:24)
[2019-06-23 15:57] VITALS: BP 109/72
[2019-06-23] MEDS: GABAPENTIN 400 MG CAPSULE. PO SCH (20:15)
[2019-06-23] MEDS: ATORVASTATIN CALCIUM 20 MG TABLET PO SCH (20:15)
--- NOTE | 2019-06-23 22:39 | PDOC ---
Exam Note: Vick Note: Please also refer to the separate dictated note~for this date of service dictated separately.~Patient seen individually. Discussed the patient with Nursing staff reviewed the chart.~Reviewed interim history and current functioning. Reviewed vital signs,~Labs/ Radiology~and current medications noted below. Continue current treatment with the changes noted in the dictated addendum note Assessment: Vital Signs/I&O: Vital Signs Date Time Temp Pulse Resp B/P (MAP) Pulse Ox O2 Delivery O2 Flow Rate FiO2 06/23/19 20:28 88 120/77 06/23/19 20:28 95 Room Air 06/23/19 15:57 97.9 20 I & O 06/22/19 06/22/19 06/23/19 15:00 23:00 07:00 Intake Total 1200 ml 360 ml Balance 1200 ml 360 ml Current Medications: Meds: Current Medications Medications (Trade) Dose Ordered Sig/Jesse Route PRN Reason Start Time Stop Time Status Last Admin Dose Admin Bupropion HCl (Wellbutrin Xl) 150 mg DAILY PO 06/23/19 09:00 06/23/19 08:30 I have reviewed the current psychotropics carefully including drug interactions. Risk benefit ratio favors no change other than as noted in my dictated progress note. Diagnosis: Problems: (1) Anxiety disorder (2) Bipolar 1 disorder, mixed, moderate (3) Dementia, vascular, with delusions (4) Dementia, vascular, with depression (5) Dementia in Alzheimer's disease with depression (6) Dementia in Alzheimer's disease with delusions (7) Impulse control disorder ANGEL VILLA MD Jun 23, 2019 22:39
[2019-06-24] MEDS: ALBUTEROL SULFATE 2.5 MG/3 ML NEBU. NEB SCH ×4 (05:08→20:00)
[2019-06-24 05:41] VITALS: BP 142/85
[2019-06-24 07:53] LABS: BASO % 1 % (0-3); EOS # 0.2 x10^3/uL (0.0-0.7); EOS % 3 % (0-3); HEMATOCRIT 47.1 % (36.0-47.0); HEMOGLOBIN 15.7 g/dL (12.0-15.5); LYMPH # 1.5 x10^3/uL (1.0-4.8); LYMPH % 22 % (24-48); MEAN CORPUSCULAR HEMOGLOBIN 33 pg (25-35); MEAN CORPUSCULAR HGB CONC 33 g/dL (31-37); MEAN CORPUSCULAR VOLUME 98 fL (79-100); MONO # 0.6 x10^3/uL (0.0-1.1); MONO % 9 % (0-9); NEUT # 4.6 x10^3uL (1.8-7.7); NEUT % 66 % (31-73); PLATELET COUNT 167 x10^3/uL (140-400); RED BLOOD COUNT 4.79 x10^6/uL (3.50-5.40); RED CELL DISTRIBUTION WIDTH 15.2 % (11.5-14.5); WHITE BLOOD COUNT 6.9 x10^3/uL (4.0-11.0)
[2019-06-24 08:12] LABS: ALBUMIN 3.4 g/dL (3.4-5.0); ALBUMIN/GLOBULIN RATIO 0.8 (1.0-1.7); CALCIUM 9.4 mg/dL (8.5-10.1); GFR 55.1; POTASSIUM 3.7 mmol/L (3.5-5.1); TOTAL BILIRUBIN 0.8 mg/dL (0.2-1.0); TOTAL PROTEIN 7.7 g/dL (6.4-8.2)
[2019-06-24] MEDS: OXYBUTYNIN CHLORIDE 5 MG TABLET PO SCH ×2 (08:28→20:59)
[2019-06-24] MEDS: FUROSEMIDE 40 MG TABLET PO SCH (08:28)
[2019-06-24] MEDS: ASPIRIN ENTERIC COATED 325 MG TABLET.DR. PO SCH (08:28)
[2019-06-24] MEDS: LACTOBACILLUS RHAMNOSUS GG 1 CAPSULE. PO SCH ×2 (08:28→20:58)
[2019-06-24] MEDS: METOPROLOL TART IMMED RELEASE 25 MG TABLET PO SCH ×2 (08:29→20:59)
[2019-06-24] MEDS: CALCIUM CARB/VIT D3 500/200 TABLET PO SCH ×2 (08:29→20:59)
[2019-06-24] MEDS: buPROPion XL 150 MG TAB.ER.24H PO SCH (08:30)
[2019-06-24] MEDS: CETIRIZINE HCL 10 MG TABLET PO SCH (08:30)
[2019-06-24] MEDS: NICOTINE 21MG PATCH. TD SCH (08:30)
[2019-06-24] MEDS: MULTIVITAMIN with MINERAL TABLET. PO SCH (08:30)
[2019-06-24] MEDS: LISINOPRIL 5 MG TABLET. PO SCH (08:30)
[2019-06-24] MEDS: CHOLECALCIFEROL (VITAMIN D3) 1,000 UNIT TABLET PO SCH (08:30)
[2019-06-24] MEDS: HYDROcodone/APAP 5/325MG 1 TAB TABLET PO PRN ×2 (08:31→21:05)
[2019-06-24] MEDS: GABAPENTIN 300 MG CAPSULE. PO SCH (08:31)
[2019-06-24] MEDS: BUDESONIDE 0.5 MG/2 ML NEBU NEB SCH (11:37)
[2019-06-24 16:05] VITALS: BP 111/75
[2019-06-24] MEDS: ATORVASTATIN CALCIUM 20 MG TABLET PO SCH (20:59)
[2019-06-24] MEDS: GABAPENTIN 400 MG CAPSULE. PO SCH (20:59)
[2019-06-24] MEDS: risperiDONE 0.25 MG TABLET. PO SCH (21:01)
[2019-06-24] MEDS: lamoTRIgine 25 MG TABLET. PO SCH (21:01)
--- NOTE | 2019-06-24 22:15 | PN ---
DATE: 06/23/2019 PSYCHIATRIC PROGRESS NOTE This late entry of 06/23/2019 covers the elements not covered in my initial note. SUBJECTIVE: I met with the patient in the evening of 06/23/2019. The patient slept 5-3/4 hours previous night. The patient was quite agitated previous night, striking out at staff, calling names to staff members, agitated with external stimuli. Most of this during shower, but during the day on 06/23/2019, she has been much more pleasant. REVIEW OF SYSTEMS: Ambulation impaired, in wheelchair. No CV, , pulmonary, eye, ENT system symptoms on review. MENTAL STATUS EXAMINATION: The patient is oriented to herself and situation. Speech is coherent, a little pressured at times. Abstraction fair, computation impaired, language function intact, attention span short. Mood and affect remains somewhat anxious, labile. LABORATORY DATA: Reviewed. IMPRESSION: Probable bipolar disorder, depressed; anxiety disorder, unspecified; mild cognitive impairment, rest unchanged; history of major depressive disorder. PLAN: Continue Wellbutrin-XL 150 mg a day. She remains on Neurontin 600 mg a.m., 800 at bedtime; Zyprexa p.r.n. Start Lamictal as a mood stabilizer 25 mg at bedtime for 5 days, then 50 mg p.o. at bedtime thereafter and increase gradually thereafter. Make further adjustments as clinically indicated. ANGEL VILLA MD DR: TOMI/rusty JOB#: [id number] / [id number]
--- NOTE | 2019-06-24 22:17 | PN ---
DATE: 06/22/2019 PSYCHIATRIC PROGRESS NOTE This late entry 06/22/2019 covers elements not covered in my initial note. SUBJECTIVE: I met with the patient evening of 06/22/2019 at length. The patient slept 6-3/[address] head shows no acute changes. She has been tearful, upset with staff, anxious, restless, somewhat short and irritable. She did receive Zyprexa p.r.n. REVIEW OF SYSTEMS: Ambulation impaired, with walker when wearing prosthesis, but otherwise in wheelchair. No CV, , pulmonary, eye, ENT system symptoms on review. MENTAL STATUS EXAM: Oriented to herself and situation. Speech coherent, a little pressured. Abstraction fair, computation impaired, language function intact, attention span short. Mood and affect somewhat anxious, labile, depressed. LABORATORY DATA: Reviewed. I have also reviewed records from the [facility] indicative of depression, but no past clear diagnosis of bipolar disorder. Nevertheless, the patient's current presentation has been of hypomania, mixed with depression and anxiety. IMPRESSION: Bipolar disorder, mixed with psychotic features, mild cognitive impairment; anxiety disorder, unspecified; history of major depressive disorder. PLAN: We will go ahead and start the patient on Wellbutrin-XL 150 mg a day as an antidepressant that may be the preferable choice with her bipolar diagnosis and then reassess whether she would be a candidate for starting Lamictal for the bipolar disorder with prominent depressive mood symptoms. I will give it another day to decide the latter. Reviewed drug interactions at some length. ANGEL VILLA MD DR: TOMI/rusty JOB#: [id number] / [id number]
--- NOTE | 2019-06-24 22:21 | PDOC ---
Exam Note: Vick Note: Please also refer to the separate dictated note~for this date of service dictated separately.~Patient seen individually. Discussed the patient with Nursing staff reviewed the chart.~Reviewed interim history and current functioning. Reviewed vital signs,~Labs/ Radiology~and current medications noted below. Continue current treatment with the changes noted in the dictated addendum note Assessment: Vital Signs/I&O: Vital Signs Date Time Temp Pulse Resp B/P (MAP) Pulse Ox O2 Delivery O2 Flow Rate FiO2 06/24/19 21:05 96 06/24/19 21:01 66 111/75 06/24/19 20:45 Room Air 06/24/19 16:05 98.1 19 I & O 06/23/19 06/23/19 06/24/19 14:59 22:59 06:59 Intake Total 840 ml 480 ml 120 ml Balance 840 ml 480 ml 120 ml Labs: Laboratory Tests Test 06/24/19 07:34 White Blood Count 6.9 x10^3/uL (4.0-11.0) Red Blood Count 4.79 x10^6/uL (3.50-5.40) Hemoglobin 15.7 g/dL (12.0-15.5) H Hematocrit 47.1 % (36.0-47.0) H Mean Corpuscular Volume 98 fL (79-100) Mean Corpuscular Hemoglobin 33 pg (25-35) Mean Corpuscular Hemoglobin Concent 33 g/dL (31-37) Red Cell Distribution Width 15.2 % (11.5-14.5) H Platelet Count 167 x10^3/uL (140-400) Neutrophils (%) (Auto) 66 % (31-73) Lymphocytes (%) (Auto) 22 % (24-48) L Monocytes (%) (Auto) 9 % (0-9) Eosinophils (%) (Auto) 3 % (0-3) Basophils (%) (Auto) 1 % (0-3) Neutrophils # (Auto) 4.6 x10^3uL (1.8-7.7) Lymphocytes # (Auto) 1.5 x10^3/uL (1.0-4.8) Monocytes # (Auto) 0.6 x10^3/uL (0.0-1.1) Eosinophils # (Auto) 0.2 x10^3/uL (0.0-0.7) Basophils # (Auto) 0.0 x10^3/uL (0.0-0.2) Sodium Level 140 mmol/L (136-145) Potassium Level 3.7 mmol/L (3.5-5.1) Chloride Level 102 mmol/L (98-107) Carbon Dioxide Level 31 mmol/L (21-32) Anion Gap 7 (6-14) Blood Urea Nitrogen 20 mg/dL (7-20) Creatinine 1.0 mg/dL (0.6-1.0) Estimated GFR (Cockcroft-Gault) 55.1 BUN/Creatinine Ratio 20 (6-20) Glucose Level 90 mg/dL (70-99) Calcium Level 9.4 mg/dL (8.5-10.1) Total Bilirubin 0.8 mg/dL (0.2-1.0) Aspartate Amino Transferase (AST) 24 U/L (15-37) Alanine Aminotransferase (ALT) 26 U/L (14-59) Alkaline Phosphatase 137 U/L (46-116) H Total Protein 7.7 g/dL (6.4-8.2) Albumin 3.4 g/dL (3.4-5.0) Albumin/Globulin Ratio 0.8 (1.0-1.7) L Current Medications: Meds: Current Medications Medications (Trade) Dose Ordered Sig/Jesse Route PRN Reason Start Time Stop Time Status Last Admin Dose Admin Lamotrigine (LaMICtal) 25 mg QHS PO 06/24/19 21:00 06/28/19 22:00 06/24/19 21:01 Risperidone (RisperDAL) 0.25 mg HS PO 06/24/19 21:00 06/24/19 21:01 I have reviewed the current psychotropics carefully including drug interactions. Risk benefit ratio favors no change other than as noted in my dictated progress note. Diagnosis: Problems: (1) Anxiety disorder (2) Bipolar 1 disorder, mixed, moderate (3) Dementia, vascular, with delusions (4) Dementia, vascular, with depression (5) Dementia in Alzheimer's disease with depression (6) Dementia in Alzheimer's disease with delusions (7) Impulse control disorder ANGEL VILLA MD Jun 24, 2019 22:21
[2019-06-25] MEDS: ALBUTEROL SULFATE 2.5 MG/3 ML NEBU. NEB SCH ×4 (05:32→23:03)
[2019-06-25 05:49] VITALS: BP 138/82
[2019-06-25] MEDS: BUDESONIDE 0.5 MG/2 ML NEBU NEB SCH ×3 (05:58→23:03)
[2019-06-25] MEDS: OXYBUTYNIN CHLORIDE 5 MG TABLET PO SCH ×2 (08:33→19:50)
[2019-06-25] MEDS: LACTOBACILLUS RHAMNOSUS GG 1 CAPSULE. PO SCH ×2 (08:33→19:49)
[2019-06-25] MEDS: ASPIRIN ENTERIC COATED 325 MG TABLET.DR. PO SCH (08:33)
[2019-06-25] MEDS: FUROSEMIDE 40 MG TABLET PO SCH (08:33)
[2019-06-25] MEDS: CHOLECALCIFEROL (VITAMIN D3) 1,000 UNIT TABLET PO SCH (08:34)
[2019-06-25] MEDS: METOPROLOL TART IMMED RELEASE 25 MG TABLET PO SCH ×2 (08:34→19:59)
[2019-06-25] MEDS: buPROPion XL 150 MG TAB.ER.24H PO SCH (08:34)
[2019-06-25] MEDS: CETIRIZINE HCL 10 MG TABLET PO SCH (08:34)
[2019-06-25] MEDS: NICOTINE 21MG PATCH. TD SCH (08:34)
[2019-06-25] MEDS: CALCIUM CARB/VIT D3 500/200 TABLET PO SCH ×2 (08:34→19:49)
[2019-06-25] MEDS: MULTIVITAMIN with MINERAL TABLET. PO SCH (08:34)
[2019-06-25] MEDS: LISINOPRIL 5 MG TABLET. PO SCH (08:35)
[2019-06-25] MEDS: HYDROcodone/APAP 5/325MG 1 TAB TABLET PO PRN ×2 (08:37→10:28)
[2019-06-25] MEDS: GABAPENTIN 300 MG CAPSULE. PO SCH (10:25)
[2019-06-25 15:32] VITALS: BP_SYST 107; BP_SYST 110; BP_DIAS 70; BP_DIAS 77
[2019-06-25] MEDS: ATORVASTATIN CALCIUM 20 MG TABLET PO SCH (19:49)
[2019-06-25] MEDS: GABAPENTIN 400 MG CAPSULE. PO SCH (19:49)
[2019-06-25] MEDS: lamoTRIgine 25 MG TABLET. PO SCH (19:50)
[2019-06-25] MEDS: risperiDONE 0.25 MG TABLET. PO SCH (19:50)
[2019-06-25 19:58] VITALS: BP 110/74
--- NOTE | 2019-06-25 21:43 | PDOC ---
Exam Note: Vick Note: Please also refer to the separate dictated note~for this date of service dictated separately.~Patient seen individually. Discussed the patient with Nursing staff reviewed the chart.~Reviewed interim history and current functioning. Reviewed vital signs,~Labs/ Radiology~and current medications noted below. Continue current treatment with the changes noted in the dictated addendum note Assessment: Vital Signs/I&O: Vital Signs Date Time Temp Pulse Resp B/P (MAP) Pulse Ox O2 Delivery O2 Flow Rate FiO2 06/25/19 20:25 97 Room Air 06/25/19 19:59 88 110/74 06/25/19 15:32 97.3 20 I & O 06/24/19 06/24/19 06/25/19 15:00 23:00 07:00 Intake Total 720 ml 480 ml Balance 720 ml 480 ml Current Medications: I have reviewed the current psychotropics carefully including drug interactions. Risk benefit ratio favors no change other than as noted in my dictated progress note. Diagnosis: Problems: (1) Anxiety disorder (2) Bipolar 1 disorder, mixed, moderate (3) Dementia, vascular, with delusions (4) Dementia, vascular, with depression (5) Dementia in Alzheimer's disease with depression (6) Dementia in Alzheimer's disease with delusions (7) Impulse control disorder ANGEL VILLA MD Jun 25, 2019 21:43
--- NOTE | 2019-06-26 01:05 | PN ---
DATE: 06/24/2019 PSYCHIATRIC PROGRESS NOTE This late entry 06/24/2019 covers elements not covered in my initial note. SUBJECTIVE: I met with the patient in the evening of 06/24/2019. The patient slept 6-1/4 hours previous night. She did well at night, but during the day on 06/24/2019, she has had episodic anger, flight of ideas, tangential thinking, getting agitated, felt there were bees around her, was irritable, labile in the shower, paranoid. REVIEW OF SYSTEMS: Ambulation impaired, in wheelchair. No CV, , pulmonary, eye, ENT system symptoms on review. MENTAL STATUS EXAM: Oriented to herself and situation. Speech is coherent, somewhat pressured as I met with her at length. Abstraction fair, computation impaired, language function intact, attention span short. Mood and affect remain somewhat anxious and labile. LABORATORY DATA: Reviewed. IMPRESSION: Bipolar disorder, mixed with psychotic features; history of major depressive disorder, mild cognitive impairment. PLAN: Given her psychotic symptoms, we will add Risperdal 0.25 mg at bedtime. Maintain Neurontin at current dosage and Lamictal is being gradually increased and continue Wellbutrin XL 150 mg a day. ANGEL VILLA MD DR: TOMI/rusty JOB#: [id number] / [id number]
[2019-06-26] MEDS: ALBUTEROL SULFATE 2.5 MG/3 ML NEBU. NEB SCH ×4 (05:03→20:22)
[2019-06-26 05:45] VITALS: BP 148/80
[2019-06-26] MEDS: BUDESONIDE 0.5 MG/2 ML NEBU NEB SCH ×2 (08:00→20:22)
[2019-06-26] MEDS: ASPIRIN ENTERIC COATED 325 MG TABLET.DR. PO SCH (08:06)
[2019-06-26] MEDS: OXYBUTYNIN CHLORIDE 5 MG TABLET PO SCH ×2 (08:07→19:33)
[2019-06-26] MEDS: LACTOBACILLUS RHAMNOSUS GG 1 CAPSULE. PO SCH ×2 (08:07→19:32)
[2019-06-26] MEDS: METOPROLOL TART IMMED RELEASE 25 MG TABLET PO SCH ×2 (08:08→19:34)
[2019-06-26] MEDS: FUROSEMIDE 40 MG TABLET PO SCH (08:08)
[2019-06-26] MEDS: CALCIUM CARB/VIT D3 500/200 TABLET PO SCH ×2 (08:09→19:32)
[2019-06-26] MEDS: GABAPENTIN 300 MG CAPSULE. PO SCH (08:09)
[2019-06-26] MEDS: CETIRIZINE HCL 10 MG TABLET PO SCH (08:10)
[2019-06-26] MEDS: buPROPion XL 150 MG TAB.ER.24H PO SCH (08:10)
[2019-06-26] MEDS: MULTIVITAMIN with MINERAL TABLET. PO SCH (08:10)
[2019-06-26] MEDS: CHOLECALCIFEROL (VITAMIN D3) 1,000 UNIT TABLET PO SCH (08:10)
[2019-06-26] MEDS: LISINOPRIL 5 MG TABLET. PO SCH (08:10)
[2019-06-26] MEDS: NICOTINE 21MG PATCH. TD SCH (08:10)
[2019-06-26 15:35] VITALS: BP 97/66
[2019-06-26] MEDS: HYDROcodone/APAP 5/325MG 1 TAB TABLET PO PRN (18:42)
[2019-06-26] MEDS: lamoTRIgine 25 MG TABLET. PO SCH (19:32)
[2019-06-26] MEDS: GABAPENTIN 400 MG CAPSULE. PO SCH (19:32)
[2019-06-26] MEDS: ATORVASTATIN CALCIUM 20 MG TABLET PO SCH (19:33)
[2019-06-26] MEDS: risperiDONE 0.25 MG TABLET. PO SCH (19:34)
--- NOTE | 2019-06-26 21:44 | PDOC ---
Exam Note: Vick Note: Please also refer to the separate dictated note~for this date of service dictated separately.~Patient seen individually. Discussed the patient with Nursing staff reviewed the chart.~Reviewed interim history and current functioning. Reviewed vital signs,~Labs/ Radiology~and current medications noted below. Continue current treatment with the changes noted in the dictated addendum note Assessment: Vital Signs/I&O: Vital Signs Date Time Temp Pulse Resp B/P (MAP) Pulse Ox O2 Delivery O2 Flow Rate FiO2 06/26/19 20:27 97 Room Air 06/26/19 19:34 80 97/66 06/26/19 18:42 20 06/26/19 15:35 98.8 I & O 06/25/19 06/25/19 06/26/19 15:00 23:00 07:00 Intake Total 720 ml 360 ml Balance 720 ml 360 ml Current Medications: I have reviewed the current psychotropics carefully including drug interactions. Risk benefit ratio favors no change other than as noted in my dictated progress note. Diagnosis: Problems: (1) Anxiety disorder (2) Bipolar 1 disorder, mixed, moderate (3) Dementia, vascular, with delusions (4) Dementia, vascular, with depression (5) Dementia in Alzheimer's disease with depression (6) Dementia in Alzheimer's disease with delusions (7) Impulse control disorder ANGEL VILLA MD Jun 26, 2019 21:43
--- NOTE | 2019-06-26 23:21 | PN ---
DATE: 06/25/2019 PSYCHIATRIC PROGRESS NOTE This late entry, 06/25, covers the elements not covered in my initial note. SUBJECTIVE: I met with the patient on the evening of 06/25. The patient slept 5-1/2 hours previous night. She did well at night and had a good day per nursing staff with no mood changes, smiling, no agitation. However, by the time I saw her evening of 06/25, she was quite agitated that the nursing staff are not responding quickly enough to her when she had to have a bowel movement and she was incontinent. She was blaming the nursing staff, quite labile, anxious, hyperverbal as I spent a fair amount of time with her. REVIEW OF SYSTEMS: Ambulation impaired, in wheelchair. No CV, , pulmonary, eye, ENT systems symptoms on review. MENTAL STATUS EXAM: The patient is oriented to herself and situation. Speech is coherent, pressured as I met with her, rest of the day has been reasonable. Abstraction fair, computation impaired, language function intact, attention span short. Mood and affect somewhat anxious, labile. LABORATORY DATA: Reviewed. IMPRESSION: Unchanged from initial note. Bipolar disorder, mixed with psychotic features. Rest unchanged. PLAN: Continue current psychotropics including Risperdal 0.25 mg at bedtime, which was just started for her psychotic symptoms and mood stabilization and Lamictal has been gradually increased. Maintain the Wellbutrin along with Neurontin and the Zyprexa as p.r.n. MAN Shai VILLA MD DR: TOMI/rusty JOB#: [id number] / [id number]
[2019-06-27] MEDS: ALBUTEROL SULFATE 2.5 MG/3 ML NEBU. NEB SCH ×4 (05:21→20:10)
[2019-06-27 05:45] VITALS: BP 133/89
[2019-06-27] MEDS: BUDESONIDE 0.5 MG/2 ML NEBU NEB SCH ×2 (09:47→20:10)
[2019-06-27] MEDS: OXYBUTYNIN CHLORIDE 5 MG TABLET PO SCH ×2 (10:02→20:46)
[2019-06-27] MEDS: buPROPion XL 150 MG TAB.ER.24H PO SCH (10:02)
[2019-06-27] MEDS: ASPIRIN ENTERIC COATED 325 MG TABLET.DR. PO SCH (10:03)
[2019-06-27] MEDS: CETIRIZINE HCL 10 MG TABLET PO SCH (10:03)
[2019-06-27] MEDS: LISINOPRIL 5 MG TABLET. PO SCH (10:03)
[2019-06-27] MEDS: CALCIUM CARB/VIT D3 500/200 TABLET PO SCH ×2 (10:03→20:46)
[2019-06-27] MEDS: LACTOBACILLUS RHAMNOSUS GG 1 CAPSULE. PO SCH ×2 (10:03→20:45)
[2019-06-27] MEDS: CHOLECALCIFEROL (VITAMIN D3) 1,000 UNIT TABLET PO SCH (10:03)
[2019-06-27] MEDS: GABAPENTIN 300 MG CAPSULE. PO SCH (10:03)
[2019-06-27] MEDS: FUROSEMIDE 40 MG TABLET PO SCH (10:04)
[2019-06-27] MEDS: METOPROLOL TART IMMED RELEASE 25 MG TABLET PO SCH ×2 (10:04→21:17)
[2019-06-27] MEDS: MULTIVITAMIN with MINERAL TABLET. PO SCH (10:04)
[2019-06-27] MEDS: NICOTINE 21MG PATCH. TD SCH (10:05)
[2019-06-27 15:38] VITALS: BP 99/66
[2019-06-27] MEDS: GABAPENTIN 400 MG CAPSULE. PO SCH (20:45)
[2019-06-27] MEDS: risperiDONE 0.25 MG TABLET. PO SCH (20:45)
[2019-06-27] MEDS: ATORVASTATIN CALCIUM 20 MG TABLET PO SCH (20:46)
[2019-06-27] MEDS: lamoTRIgine 25 MG TABLET. PO SCH (20:47)
--- NOTE | 2019-06-27 21:05 | PDOC ---
Exam Note: Vick Note: Please also refer to the separate dictated note~for this date of service dictated separately.~Patient seen individually. Discussed the patient with Nursing staff reviewed the chart.~Reviewed interim history and current functioning. Reviewed vital signs,~Labs/ Radiology~and current medications noted below. Continue current treatment with the changes noted in the dictated addendum note Assessment: Vital Signs/I&O: Vital Signs Date Time Temp Pulse Resp B/P (MAP) Pulse Ox O2 Delivery O2 Flow Rate FiO2 06/27/19 15:49 96 Room Air 06/27/19 15:38 98.6 72 18 99/66 (77) I & O 06/26/19 06/26/19 06/27/19 14:59 22:59 06:59 Intake Total 1080 ml 600 ml Balance 1080 ml 600 ml Current Medications: I have reviewed the current psychotropics carefully including drug interactions. Risk benefit ratio favors no change other than as noted in my dictated progress note. Diagnosis: Problems: (1) Anxiety disorder (2) Bipolar 1 disorder, mixed, moderate (3) Dementia, vascular, with delusions (4) Dementia, vascular, with depression (5) Dementia in Alzheimer's disease with depression (6) Dementia in Alzheimer's disease with delusions (7) Impulse control disorder ANGEL VILLA MD Jun 27, 2019 21:05
--- NOTE | 2019-06-28 00:35 | PN ---
DATE: 06/26/2019 PSYCHIATRIC PROGRESS NOTE This late entry 06/26/2019, covers elements not covered in my initial note. SUBJECTIVE: I met with the patient evening of 06/26/2019. The patient slept 7 hours previous night. She has been irritable with nursing staff "I have to follow your rules." She is going to the restroom and nursing staff asked if she wanted to shut her door and she was irritable about this as well. She has been irritable also because she reportedly had an appointment for her prosthesis today and is unable to make it because she is hospitalized. REVIEW OF SYSTEMS: Ambulation impaired, in a wheelchair. She wants her prosthesis in from home and change of clothes and TALON Sifuentes will coordinate to contact the friends to see if they can bring it in. REVIEW OF SYSTEMS: No CV, , pulmonary, eye, ENT system symptoms on review. MENTAL STATUS EXAMINATION: The patient is reasonably oriented. Speech is coherent, abstraction fair, computation impaired, language function intact, attention span short. Mood and affect remain somewhat anxious, labile. LABORATORY DATA: Reviewed. IMPRESSION: Unchanged from initial note. PLAN: No change from initial note. Lamictal is being increased gradually. Maintain Neurontin, Wellbutrin, unchanged for now. ANGEL VILLA MD DR: TOMI/rusty JOB#: [id number] / [id number]
[2019-06-28] MEDS: ALBUTEROL SULFATE 2.5 MG/3 ML NEBU. NEB SCH ×4 (05:06→22:56)
[2019-06-28 05:54] VITALS: BP 112/49
[2019-06-28] MEDS: ALENDRONATE SODIUM 35 MG TABLET PO SCH (06:05)
[2019-06-28] MEDS: NICOTINE 21MG PATCH. TD SCH (08:53)
[2019-06-28] MEDS: METOPROLOL TART IMMED RELEASE 25 MG TABLET PO SCH ×2 (08:55→20:11)
[2019-06-28] MEDS: FUROSEMIDE 40 MG TABLET PO SCH (08:56)
[2019-06-28] MEDS: MULTIVITAMIN with MINERAL TABLET. PO SCH (08:56)
[2019-06-28] MEDS: CALCIUM CARB/VIT D3 500/200 TABLET PO SCH ×2 (08:56→20:12)
[2019-06-28] MEDS: LISINOPRIL 5 MG TABLET. PO SCH (08:56)
[2019-06-28] MEDS: CETIRIZINE HCL 10 MG TABLET PO SCH (08:56)
[2019-06-28] MEDS: OXYBUTYNIN CHLORIDE 5 MG TABLET PO SCH ×2 (08:57→20:12)
[2019-06-28] MEDS: CHOLECALCIFEROL (VITAMIN D3) 1,000 UNIT TABLET PO SCH (08:57)
[2019-06-28] MEDS: buPROPion XL 150 MG TAB.ER.24H PO SCH (08:57)
[2019-06-28] MEDS: LACTOBACILLUS RHAMNOSUS GG 1 CAPSULE. PO SCH ×2 (08:57→20:12)
[2019-06-28] MEDS: ASPIRIN ENTERIC COATED 325 MG TABLET.DR. PO SCH (08:57)
[2019-06-28] MEDS: GABAPENTIN 300 MG CAPSULE. PO SCH (09:01)
[2019-06-28] MEDS: BUDESONIDE 0.5 MG/2 ML NEBU NEB SCH ×2 (11:25→22:56)
[2019-06-28 13:54] LABS: BACTERIA,URINE 0 /HPF (0-FEW); BILIRUBIN,URINE NEG (NEG); CLARITY,URINE CLEAR; COLOR,URINE YELLOW; GLUCOSE,URINE NEG (NEG); NITRITE,URINE NEG (NEG); RBC,URINE 0 /HPF (0-2); SQUAMOUS EPITHELIAL CELL,UR OCC /LPF; UROBILINOGEN,URINE 0.2 mg/dL (0.2 mg/dL); WBC,URINE OCC /HPF (0-4)
[2019-06-28] MEDS: HYDROcodone/APAP 5/325MG 1 TAB TABLET PO PRN (14:18)
[2019-06-28 15:42] VITALS: BP 130/74
[2019-06-28] MEDS: ATORVASTATIN CALCIUM 20 MG TABLET PO SCH (20:11)
[2019-06-28] MEDS: risperiDONE 0.25 MG TABLET. PO SCH (20:12)
[2019-06-28] MEDS: lamoTRIgine 25 MG TABLET. PO SCH (20:13)
[2019-06-28] MEDS: GABAPENTIN 400 MG CAPSULE. PO SCH (20:13)
--- NOTE | 2019-06-28 21:56 | PDOC ---
Exam Note: Vick Note: Please also refer to the separate dictated note~for this date of service dictated separately.~Patient seen individually. Discussed the patient with Nursing staff reviewed the chart.~Reviewed interim history and current functioning. Reviewed vital signs,~Labs/ Radiology~and current medications noted below. Continue current treatment with the changes noted in the dictated addendum note Assessment: Vital Signs/I&O: Vital Signs Date Time Temp Pulse Resp B/P (MAP) Pulse Ox O2 Delivery O2 Flow Rate FiO2 06/28/19 21:10 95 Room Air 06/28/19 20:12 73 130/74 06/28/19 15:48 20 06/28/19 15:42 98.5 I & O 06/27/19 06/27/19 06/28/19 14:59 22:59 06:59 Intake Total 240 ml 480 ml Balance 240 ml 480 ml Labs: Laboratory Tests Test 06/28/19 13:35 Urine Collection Type Unknown Urine Color Yellow Urine Clarity Clear Urine pH 7.0 Urine Specific [place] 1.010 Urine Protein Neg (NEG-TRACE) Urine Glucose (UA) Neg mg/dL (NEG) Urine Ketones (Stick) Neg mg/dL (NEG) Urine Blood Neg (NEG) Urine Nitrite Neg (NEG) Urine Bilirubin Neg (NEG) Urine Urobilinogen Dipstick 0.2 mg/dL (0.2 mg/dL) Urine Leukocyte Esterase Neg (NEG) Urine RBC 0 /HPF (0-2) Urine WBC Occ /HPF (0-4) Urine Squamous Epithelial Cells Occ /LPF Urine Bacteria 0 /HPF (0-FEW) Current Medications: I have reviewed the current psychotropics carefully including drug interactions. Risk benefit ratio favors no change other than as noted in my dictated progress note. Diagnosis: Problems: (1) Anxiety disorder (2) Bipolar 1 disorder, mixed, moderate (3) Dementia, vascular, with delusions (4) Dementia, vascular, with depression (5) Dementia in Alzheimer's disease with depression (6) Dementia in Alzheimer's disease with delusions (7) Impulse control disorder ANGEL VILLA MD Jun 28, 2019 21:55
[2019-06-29 06:00] VITALS: BP 110/63
[2019-06-29] MEDS: ALBUTEROL SULFATE 2.5 MG/3 ML NEBU. NEB SCH ×4 (08:00→20:00)
[2019-06-29] MEDS: BUDESONIDE 0.5 MG/2 ML NEBU NEB SCH ×2 (08:00→20:00)
[2019-06-29] MEDS: LACTOBACILLUS RHAMNOSUS GG 1 CAPSULE. PO SCH ×2 (08:36→20:49)
[2019-06-29] MEDS: OXYBUTYNIN CHLORIDE 5 MG TABLET PO SCH ×2 (08:36→20:50)
[2019-06-29] MEDS: LISINOPRIL 5 MG TABLET. PO SCH (08:36)
[2019-06-29] MEDS: FUROSEMIDE 40 MG TABLET PO SCH (08:36)
[2019-06-29] MEDS: ASPIRIN ENTERIC COATED 325 MG TABLET.DR. PO SCH (08:36)
[2019-06-29] MEDS: buPROPion XL 150 MG TAB.ER.24H PO SCH (08:36)
[2019-06-29] MEDS: CETIRIZINE HCL 10 MG TABLET PO SCH (08:37)
[2019-06-29] MEDS: CHOLECALCIFEROL (VITAMIN D3) 1,000 UNIT TABLET PO SCH (08:37)
[2019-06-29] MEDS: MULTIVITAMIN with MINERAL TABLET. PO SCH (08:37)
[2019-06-29] MEDS: CALCIUM CARB/VIT D3 500/200 TABLET PO SCH ×2 (08:37→20:49)
[2019-06-29] MEDS: METOPROLOL TART IMMED RELEASE 25 MG TABLET PO SCH ×2 (08:43→20:50)
[2019-06-29] MEDS: NICOTINE 21MG PATCH. TD SCH (08:43)
[2019-06-29] MEDS: GABAPENTIN 300 MG CAPSULE. PO SCH (08:46)
[2019-06-29 16:52] VITALS: BP 100/66
--- NOTE | 2019-06-29 20:14 | PN ---
DATE: 06/27/2019 PSYCHIATRIC PROGRESS NOTE This late entry 06/27/2019 covers elements not covered in my initial note. SUBJECTIVE: I met with the patient evening of 06/27/2019. The patient slept 6-1/2 hours previous night. She is reasonably oriented. She is still distressed that no one has brought in her prosthesis or change of clothes that she requested. Her DPOA, Linh King, has been contacted by social service staff and we are awaiting these things for the patient. REVIEW OF SYSTEMS: Ambulation impaired, in wheelchair. No CV, , pulmonary, eye, ENT system symptoms on review. MENTAL STATUS EXAM: Reasonably oriented. Speech is coherent, abstraction fair, computation impaired, language function intact, attention span short. Mood and affect remain somewhat anxious, labile, but improved. LABORATORY DATA: Reviewed. IMPRESSION: Unchanged from initial note. PLAN: No change from initial note. ANGEL VILLA MD DR: TOMI/rusty JOB#: [id number] / [id number]
[2019-06-29] MEDS: risperiDONE 0.25 MG TABLET. PO SCH (20:49)
[2019-06-29] MEDS: ATORVASTATIN CALCIUM 20 MG TABLET PO SCH (20:49)
[2019-06-29] MEDS: lamoTRIgine 25 MG TABLET. PO SCH (20:54)
[2019-06-29] MEDS: MIRTAZAPINE 7.5 MG TABLET. PO SCH (20:54)
[2019-06-29] MEDS: GABAPENTIN 400 MG CAPSULE. PO SCH (20:54)
--- NOTE | 2019-06-29 21:39 | PDOC ---
Exam Note: Vick Note: Please also refer to the separate dictated note~for this date of service dictated separately.~Patient seen individually. Discussed the patient with Nursing staff reviewed the chart.~Reviewed interim history and current functioning. Reviewed vital signs,~Labs/ Radiology~and current medications noted below. Continue current treatment with the changes noted in the dictated addendum note Assessment: Vital Signs/I&O: Vital Signs Date Time Temp Pulse Resp B/P (MAP) Pulse Ox O2 Delivery O2 Flow Rate FiO2 06/29/19 20:54 79 110/71 06/29/19 20:25 95 Room Air 06/29/19 16:52 98.0 18 I & O 06/28/19 06/28/19 06/29/19 14:59 22:59 06:59 Intake Total 960 ml 480 ml 240 ml Balance 960 ml 480 ml 240 ml Current Medications: Meds: Current Medications Medications (Trade) Dose Ordered Sig/Jesse Route PRN Reason Start Time Stop Time Status Last Admin Dose Admin Lamotrigine (LaMICtal) 50 mg QHS PO 06/29/19 21:00 06/29/19 20:54 Mirtazapine (Remeron) 7.5 mg QHS PO 06/29/19 21:00 06/29/19 20:54 I have reviewed the current psychotropics carefully including drug interactions. Risk benefit ratio favors no change other than as noted in my dictated progress note. Diagnosis: Problems: (1) Anxiety disorder (2) Bipolar 1 disorder, mixed, moderate (3) Dementia, vascular, with delusions (4) Dementia, vascular, with depression (5) Dementia in Alzheimer's disease with depression (6) Dementia in Alzheimer's disease with delusions (7) Impulse control disorder ANGEL VILLA MD Jun 29, 2019 21:39
--- NOTE | 2019-06-30 01:57 | PN ---
DATE: 06/28/2019 PSYCHIATRIC PROGRESS NOTE This late entry, date of service June 28, covers the elements not covered in my initial note. SUBJECTIVE: I met with the patient at length in the evening and staffed at a treatment team meeting with the entire team in the morning. The patient's sleeping average is 6-1/2 hours, appetite is 75-100%. She has been calmer, pleasant, cooperative, somewhat more social, compliant with medications. Her prosthesis has been brought in by her [employer] and she is pleased with this, but she has not got her changes of clothes that she had requested and social service staff will follow through with this. REVIEW OF SYSTEMS: Ambulation impaired. No CV, , pulmonary, eye system symptoms on review. MENTAL STATUS EXAM: Reasonably oriented. Speech is coherent, somewhat pressured. Abstraction fair, computation impaired, language function intact, attention span short. Mood and affect overall lability is improved. LABORATORY DATA: Reviewed. IMPRESSION: Bipolar disorder, mixed with psychotic features; anxiety disorder, unspecified; impulse control disorder, unspecified; history of major depressive disorder. PLAN: From a psychiatric standpoint, continue to gradually increase the Lamictal, maintain Neurontin, Zyprexa as p.r.n., Wellbutrin, and Risperdal is 0.25 mg at bedtime, may need to increase this depending on her response. ANGEL VILLA MD DR: TOMI/rusty JOB#: [id number] / [id number]
[2019-06-30] MEDS: ALBUTEROL SULFATE 2.5 MG/3 ML NEBU. NEB SCH ×4 (06:32→20:29)
[2019-06-30] MEDS: NICOTINE 21MG PATCH. TD SCH (07:55)
[2019-06-30] MEDS: CALCIUM CARB/VIT D3 500/200 TABLET PO SCH ×2 (07:56→20:58)
[2019-06-30] MEDS: LACTOBACILLUS RHAMNOSUS GG 1 CAPSULE. PO SCH ×2 (07:56→20:57)
[2019-06-30] MEDS: buPROPion XL 150 MG TAB.ER.24H PO SCH (07:56)
[2019-06-30] MEDS: LISINOPRIL 5 MG TABLET. PO SCH (07:56)
[2019-06-30] MEDS: CETIRIZINE HCL 10 MG TABLET PO SCH (07:56)
[2019-06-30] MEDS: MULTIVITAMIN with MINERAL TABLET. PO SCH (07:56)
[2019-06-30] MEDS: ASPIRIN ENTERIC COATED 325 MG TABLET.DR. PO SCH (07:56)
[2019-06-30] MEDS: FUROSEMIDE 40 MG TABLET PO SCH (07:57)
[2019-06-30] MEDS: CHOLECALCIFEROL (VITAMIN D3) 1,000 UNIT TABLET PO SCH (07:57)
[2019-06-30] MEDS: METOPROLOL TART IMMED RELEASE 25 MG TABLET PO SCH ×2 (07:59→21:00)
[2019-06-30] MEDS: GABAPENTIN 300 MG CAPSULE. PO SCH (08:03)
[2019-06-30] MEDS: OXYBUTYNIN CHLORIDE 5 MG TABLET PO SCH ×2 (08:04→20:58)
[2019-06-30 10:43] VITALS: BP 133/69
[2019-06-30 10:51] VITALS: BP 98/65
[2019-06-30] MEDS: BUDESONIDE 0.5 MG/2 ML NEBU NEB SCH ×2 (11:36→20:29)
[2019-06-30 15:24] VITALS: BP 104/71
--- NOTE | 2019-06-30 19:53 | PDOC ---
Exam Note: Vick Note: Please also refer to the separate dictated note~for this date of service dictated separately.~Patient seen individually. Discussed the patient with Nursing staff reviewed the chart.~Reviewed interim history and current functioning. Reviewed vital signs,~Labs/ Radiology~and current medications noted below. Continue current treatment with the changes noted in the dictated addendum note Assessment: Vital Signs/I&O: Vital Signs Date Time Temp Pulse Resp B/P (MAP) Pulse Ox O2 Delivery O2 Flow Rate FiO2 06/30/19 16:37 96 Room Air 06/30/19 15:24 98.5 79 16 104/71 (82) I & O 06/29/19 06/29/19 06/30/19 15:00 23:00 07:00 Intake Total 1680 ml 480 ml 360 ml Balance 1680 ml 480 ml 360 ml Current Medications: Meds: Current Medications Medications (Trade) Dose Ordered Sig/Jesse Route PRN Reason Start Time Stop Time Status Last Admin Dose Admin Lamotrigine (LaMICtal) 50 mg QHS PO 06/29/19 21:00 07/02/19 20:59 06/29/19 20:54 Mirtazapine (Remeron) 7.5 mg QHS PO 06/29/19 21:00 06/29/19 20:54 I have reviewed the current psychotropics carefully including drug interactions. Risk benefit ratio favors no change other than as noted in my dictated progress note. Diagnosis: Problems: (1) Anxiety disorder (2) Bipolar 1 disorder, mixed, moderate (3) Dementia, vascular, with delusions (4) Dementia, vascular, with depression (5) Dementia in Alzheimer's disease with depression (6) Dementia in Alzheimer's disease with delusions (7) Impulse control disorder ANGEL VILLA MD Jun 30, 2019 19:53
[2019-06-30] MEDS: lamoTRIgine 25 MG TABLET. PO SCH (20:57)
[2019-06-30] MEDS: GABAPENTIN 400 MG CAPSULE. PO SCH (20:57)
[2019-06-30] MEDS: ATORVASTATIN CALCIUM 20 MG TABLET PO SCH (20:58)
[2019-06-30] MEDS: MIRTAZAPINE 7.5 MG TABLET. PO SCH (20:58)
[2019-06-30] MEDS: risperiDONE 0.25 MG TABLET. PO SCH (20:58)
[2019-07-01 05:53] VITALS: BP 151/91
[2019-07-01] MEDS: ALBUTEROL SULFATE 2.5 MG/3 ML NEBU. NEB SCH ×4 (06:05→22:16)
[2019-07-01] MEDS: BUDESONIDE 0.5 MG/2 ML NEBU NEB SCH ×2 (06:05→22:16)
[2019-07-01] MEDS: ASPIRIN ENTERIC COATED 325 MG TABLET.DR. PO SCH (07:49)
[2019-07-01] MEDS: buPROPion XL 150 MG TAB.ER.24H PO SCH (07:49)
[2019-07-01] MEDS: CALCIUM CARB/VIT D3 500/200 TABLET PO SCH ×2 (07:49→21:06)
[2019-07-01] MEDS: NICOTINE 21MG PATCH. TD SCH (07:49)
[2019-07-01] MEDS: CETIRIZINE HCL 10 MG TABLET PO SCH (07:49)
[2019-07-01] MEDS: METOPROLOL TART IMMED RELEASE 25 MG TABLET PO SCH ×2 (07:50→21:23)
[2019-07-01] MEDS: MULTIVITAMIN with MINERAL TABLET. PO SCH (07:50)
[2019-07-01] MEDS: FUROSEMIDE 40 MG TABLET PO SCH (07:51)
[2019-07-01] MEDS: LISINOPRIL 5 MG TABLET. PO SCH (07:51)
[2019-07-01] MEDS: CHOLECALCIFEROL (VITAMIN D3) 1,000 UNIT TABLET PO SCH (07:51)
[2019-07-01] MEDS: LACTOBACILLUS RHAMNOSUS GG 1 CAPSULE. PO SCH ×2 (07:51→21:07)
[2019-07-01] MEDS: OXYBUTYNIN CHLORIDE 5 MG TABLET PO SCH ×2 (07:51→21:07)
[2019-07-01] MEDS: GABAPENTIN 300 MG CAPSULE. PO SCH (07:52)
[2019-07-01 09:52] LABS: BASO % 0 % (0-3); EOS # 0.1 x10^3/uL (0.0-0.7); EOS % 2 % (0-3); HEMATOCRIT 42.6 % (36.0-47.0); HEMOGLOBIN 14.2 g/dL (12.0-15.5); LYMPH # 1.3 x10^3/uL (1.0-4.8); LYMPH % 20 % (24-48); MEAN CORPUSCULAR HEMOGLOBIN 32 pg (25-35); MEAN CORPUSCULAR HGB CONC 33 g/dL (31-37); MEAN CORPUSCULAR VOLUME 97 fL (79-100); MONO # 0.5 x10^3/uL (0.0-1.1); MONO % 7 % (0-9); NEUT # 4.6 x10^3uL (1.8-7.7); NEUT % 71 % (31-73); PLATELET COUNT 191 x10^3/uL (140-400); RED BLOOD COUNT 4.38 x10^6/uL (3.50-5.40); RED CELL DISTRIBUTION WIDTH 14.5 % (11.5-14.5); WHITE BLOOD COUNT 6.5 x10^3/uL (4.0-11.0)
[2019-07-01 09:57] LABS: ALBUMIN 3.4 g/dL (3.4-5.0); ALBUMIN/GLOBULIN RATIO 0.8 (1.0-1.7); CALCIUM 10.1 mg/dL (8.5-10.1); CREATININE 1.3 mg/dL (0.6-1.0); GFR 40.7; POTASSIUM 3.7 mmol/L (3.5-5.1); TOTAL BILIRUBIN 0.5 mg/dL (0.2-1.0); TOTAL PROTEIN 7.8 g/dL (6.4-8.2)
[2019-07-01 15:57] VITALS: BP 111/74
[2019-07-01] MEDS: GABAPENTIN 400 MG CAPSULE. PO SCH (21:02)
[2019-07-01] MEDS: risperiDONE 0.25 MG TABLET. PO SCH (21:02)
[2019-07-01] MEDS: MIRTAZAPINE 7.5 MG TABLET. PO SCH (21:02)
[2019-07-01] MEDS: ATORVASTATIN CALCIUM 20 MG TABLET PO SCH (21:02)
[2019-07-01] MEDS: lamoTRIgine 25 MG TABLET. PO SCH (21:03)
--- NOTE | 2019-07-01 21:39 | PDOC ---
Exam Note: Vick Note: Please also refer to the separate dictated note~for this date of service dictated separately.~Patient seen individually. Discussed the patient with Nursing staff reviewed the chart.~Reviewed interim history and current functioning. Reviewed vital signs,~Labs/ Radiology~and current medications noted below. Continue current treatment with the changes noted in the dictated addendum note Assessment: Vital Signs/I&O: Vital Signs Date Time Temp Pulse Resp B/P (MAP) Pulse Ox O2 Delivery O2 Flow Rate FiO2 07/01/19 21:23 74 90/55 07/01/19 15:57 97.2 20 98 07/01/19 11:51 Room Air I & O 06/30/19 06/30/19 07/01/19 15:00 23:00 07:00 Intake Total 960 ml 840 ml Balance 960 ml 840 ml Labs: Laboratory Tests Test 07/01/19 09:32 White Blood Count 6.5 x10^3/uL (4.0-11.0) Red Blood Count 4.38 x10^6/uL (3.50-5.40) Hemoglobin 14.2 g/dL (12.0-15.5) Hematocrit 42.6 % (36.0-47.0) Mean Corpuscular Volume 97 fL (79-100) Mean Corpuscular Hemoglobin 32 pg (25-35) Mean Corpuscular Hemoglobin Concent 33 g/dL (31-37) Red Cell Distribution Width 14.5 % (11.5-14.5) Platelet Count 191 x10^3/uL (140-400) Neutrophils (%) (Auto) 71 % (31-73) Lymphocytes (%) (Auto) 20 % (24-48) L Monocytes (%) (Auto) 7 % (0-9) Eosinophils (%) (Auto) 2 % (0-3) Basophils (%) (Auto) 0 % (0-3) Neutrophils # (Auto) 4.6 x10^3uL (1.8-7.7) Lymphocytes # (Auto) 1.3 x10^3/uL (1.0-4.8) Monocytes # (Auto) 0.5 x10^3/uL (0.0-1.1) Eosinophils # (Auto) 0.1 x10^3/uL (0.0-0.7) Basophils # (Auto) 0.0 x10^3/uL (0.0-0.2) Sodium Level 138 mmol/L (136-145) Potassium Level 3.7 mmol/L (3.5-5.1) Chloride Level 97 mmol/L (98-107) L Carbon Dioxide Level 33 mmol/L (21-32) H Anion Gap 8 (6-14) Blood Urea Nitrogen 32 mg/dL (7-20) H Creatinine 1.3 mg/dL (0.6-1.0) H Estimated GFR (Cockcroft-Gault) 40.7 BUN/Creatinine Ratio 25 (6-20) H Glucose Level 160 mg/dL (70-99) H Calcium Level 10.1 mg/dL (8.5-10.1) Total Bilirubin 0.5 mg/dL (0.2-1.0) Aspartate Amino Transferase (AST) 20 U/L (15-37) Alanine Aminotransferase (ALT) 24 U/L (14-59) Alkaline Phosphatase 158 U/L (46-116) H Total Protein 7.8 g/dL (6.4-8.2) Albumin 3.4 g/dL (3.4-5.0) Albumin/Globulin Ratio 0.8 (1.0-1.7) L Current Medications: I have reviewed the current psychotropics carefully including drug interactions. Risk benefit ratio favors no change other than as noted in my dictated progress note. Diagnosis: Problems: (1) Anxiety disorder (2) Bipolar 1 disorder, mixed, moderate (3) Dementia, vascular, with delusions (4) Dementia, vascular, with depression (5) Dementia in Alzheimer's disease with depression (6) Dementia in Alzheimer's disease with delusions (7) Impulse control disorder ANGEL VILLA MD Jul 01, 2019 21:39
--- NOTE | 2019-07-01 21:43 | PN ---
DATE: 06/29/2019 PSYCHIATRIC PROGRESS NOTE This late entry 06/29/2019 covers elements not covered in my initial note. SUBJECTIVE: I met with the patient evening of 06/29/2019. The patient slept 3-1/4 hours previous night. She was irritable in the morning in the dining room, then used a prosthesis, was yelling out at another demented patient who was being extremely loud and verbally abusive to everyone around him and referred to him loudly as M, dash, dash, dash F, dash, dash, dash ER. The patient slept 3-1/4 hours. REVIEW OF SYSTEMS: Ambulation impaired, in wheelchair. No CV, , pulmonary, eye, ENT system symptoms on review. MENTAL STATUS EXAM: Reasonably oriented to place and situation. Speech coherent, can be rapid at times. Abstraction fair, computation impaired, language function intact, attention span short. Mood and affect remains a little labile, but showing some improvement. LABORATORY DATA: Reviewed. IMPRESSION: Unchanged from initial note. PLAN: We will start Remeron 7.5 mg at bedtime for insomnia and anxiety. Continue Lamictal, which is being increased, rest unchanged for now. ANGEL VILLA MD DR: TOMI/rusty JOB#: [id number] / [id number]
--- NOTE | 2019-07-01 21:55 | PN ---
DATE: 06/30/2019 PSYCHIATRIC PROGRESS NOTE This late entry 06/30/2019 covers elements not covered in my initial note. SUBJECTIVE: I met with the patient evening of 06/30/2019. The patient slept 6-1/4 hours previous night. She remains a little less anxious, restless, still somewhat labile in her mood. She is using a prosthesis more appropriately. REVIEW OF SYSTEMS: Ambulation impaired, in wheelchair. No CV, , pulmonary, eye, ENT system symptoms on review. MENTAL STATUS EXAM: Oriented to herself and situation. Speech coherent, a little pressured at times. Abstraction fair, computation impaired, language function intact. Mood and affect less labile. I had driven past her mobile [place] park where she lives and looked at it on my way to work today just to get a sense of her surroundings where she lives in the safety generally. She was very appreciative of this and talked at great length about details and feeling very comfortable in that environment. LABORATORY DATA: Reviewed. IMPRESSION: Unchanged from initial note. PLAN: After she has been on Lamictal 50 mg a day for 3 days, we will increase to 75 mg a day. Rest unchanged including Risperdal 0.25 mg at bedtime. ANGEL VILLA MD DR: TOMI/rusty JOB#: [id number] / [id number]
[2019-07-02 06:08] VITALS: BP 101/67
[2019-07-02] MEDS: BUDESONIDE 0.5 MG/2 ML NEBU NEB SCH ×2 (06:12→20:22)
[2019-07-02] MEDS: ALBUTEROL SULFATE 2.5 MG/3 ML NEBU. NEB SCH ×4 (06:12→20:22)
[2019-07-02] MEDS: LACTOBACILLUS RHAMNOSUS GG 1 CAPSULE. PO SCH ×2 (08:27→19:41)
[2019-07-02] MEDS: OXYBUTYNIN CHLORIDE 5 MG TABLET PO SCH ×2 (08:27→19:44)
[2019-07-02] MEDS: ASPIRIN ENTERIC COATED 325 MG TABLET.DR. PO SCH (08:27)
[2019-07-02] MEDS: METOPROLOL TART IMMED RELEASE 25 MG TABLET PO SCH ×2 (08:28→19:58)
[2019-07-02] MEDS: FUROSEMIDE 40 MG TABLET PO SCH (08:28)
[2019-07-02] MEDS: GABAPENTIN 300 MG CAPSULE. PO SCH (08:31)
[2019-07-02] MEDS: buPROPion XL 150 MG TAB.ER.24H PO SCH (08:31)
[2019-07-02] MEDS: CHOLECALCIFEROL (VITAMIN D3) 1,000 UNIT TABLET PO SCH (08:31)
[2019-07-02] MEDS: NICOTINE 21MG PATCH. TD SCH (08:31)
[2019-07-02] MEDS: CALCIUM CARB/VIT D3 500/200 TABLET PO SCH ×2 (08:31→19:41)
[2019-07-02] MEDS: MULTIVITAMIN with MINERAL TABLET. PO SCH (08:31)
[2019-07-02] MEDS: CETIRIZINE HCL 10 MG TABLET PO SCH (08:32)
[2019-07-02] MEDS: LISINOPRIL 5 MG TABLET. PO SCH (08:33)
[2019-07-02 16:20] VITALS: BP 97/62
[2019-07-02] MEDS: risperiDONE 0.25 MG TABLET. PO SCH (19:41)
[2019-07-02] MEDS: lamoTRIgine 25 MG TABLET. PO SCH (19:43)
[2019-07-02] MEDS: GABAPENTIN 400 MG CAPSULE. PO SCH (19:43)
[2019-07-02] MEDS: ATORVASTATIN CALCIUM 20 MG TABLET PO SCH (19:43)
[2019-07-02] MEDS: MIRTAZAPINE 7.5 MG TABLET. PO SCH (19:44)
--- NOTE | 2019-07-02 21:34 | PDOC ---
Exam Note: Vick Note: Please also refer to the separate dictated note~for this date of service dictated separately.~Patient seen individually. Discussed the patient with Nursing staff reviewed the chart.~Reviewed interim history and current functioning. Reviewed vital signs,~Labs/ Radiology~and current medications noted below. Continue current treatment with the changes noted in the dictated addendum note Assessment: Vital Signs/I&O: Vital Signs Date Time Temp Pulse Resp B/P (MAP) Pulse Ox O2 Delivery O2 Flow Rate FiO2 07/02/19 20:25 97 Room Air 07/02/19 19:58 87 109/70 07/02/19 16:20 97.6 20 I & O 07/01/19 07/01/19 07/02/19 15:00 23:00 07:00 Intake Total 720 ml 240 ml 420 ml Balance 720 ml 240 ml 420 ml Current Medications: Meds: Current Medications Medications (Trade) Dose Ordered Sig/Jesse Route PRN Reason Start Time Stop Time Status Last Admin Dose Admin Lamotrigine (LaMICtal) 75 mg HS PO 07/02/19 21:00 07/06/19 20:59 07/02/19 19:46 I have reviewed the current psychotropics carefully including drug interactions. Risk benefit ratio favors no change other than as noted in my dictated progress note. Diagnosis: Problems: (1) Anxiety disorder (2) Bipolar 1 disorder, mixed, moderate (3) Dementia, vascular, with delusions (4) Dementia, vascular, with depression (5) Dementia in Alzheimer's disease with depression (6) Dementia in Alzheimer's disease with delusions (7) Impulse control disorder ANGEL VILLA MD Jul 02, 2019 21:34
--- NOTE | 2019-07-02 21:59 | PN ---
DATE: 07/01/2019 PSYCHIATRIC PROGRESS NOTE. SUBJECTIVE: The patient was seen on rounds on the evening of 07/01/2019. Discussed with nursing staff, reviewed the chart. The patient slept 4-1/4 hours previous night. She has been somewhat intrusive, a little anxious, received Zyprexa at 1900, upset regarding her roommate who has been psychotic. She has been using a prosthesis better. REVIEW OF SYSTEMS: Ambulation impaired, in wheelchair. No CV, , pulmonary, eye, ENT system symptoms on review. MENTAL STATUS EXAM: Reasonably oriented to place and situation. Speech is coherent, a little pressured at times. Abstraction fair, computation impaired, language function intact, attention span short. Mood and affect, lability showing some improvement. LABORATORY DATA: Reviewed. IMPRESSION: Unchanged from initial note. PLAN: Increase Lamictal from 75 mg at bedtime to 100 mg at bedtime after she has been on 75 mg for 4 days. Rest unchanged for now. ANGEL VILLA MD DR: TOMI/rusty JOB#: [id number] / [id number]
[2019-07-03] MEDS: ALBUTEROL SULFATE 2.5 MG/3 ML NEBU. NEB SCH ×3 (05:10→16:36)
[2019-07-03 05:54] VITALS: BP 92/61
[2019-07-03] MEDS: FUROSEMIDE 40 MG TABLET PO SCH (08:18)
[2019-07-03] MEDS: NICOTINE 21MG PATCH. TD SCH (08:18)
[2019-07-03] MEDS: OXYBUTYNIN CHLORIDE 5 MG TABLET PO SCH ×2 (08:19→20:42)
[2019-07-03] MEDS: CHOLECALCIFEROL (VITAMIN D3) 1,000 UNIT TABLET PO SCH (08:19)
[2019-07-03] MEDS: LACTOBACILLUS RHAMNOSUS GG 1 CAPSULE. PO SCH ×2 (08:20→20:41)
[2019-07-03] MEDS: MULTIVITAMIN with MINERAL TABLET. PO SCH (08:20)
[2019-07-03] MEDS: CETIRIZINE HCL 10 MG TABLET PO SCH (08:20)
[2019-07-03] MEDS: ASPIRIN ENTERIC COATED 325 MG TABLET.DR. PO SCH (08:20)
[2019-07-03] MEDS: CALCIUM CARB/VIT D3 500/200 TABLET PO SCH ×2 (08:20→20:42)
[2019-07-03] MEDS: buPROPion XL 150 MG TAB.ER.24H PO SCH (08:20)
[2019-07-03] MEDS: GABAPENTIN 300 MG CAPSULE. PO SCH (08:22)
[2019-07-03] MEDS: LISINOPRIL 5 MG TABLET. PO SCH (09:00)
[2019-07-03] MEDS: METOPROLOL TART IMMED RELEASE 25 MG TABLET PO SCH ×2 (09:00→20:58)
[2019-07-03] MEDS: BUDESONIDE 0.5 MG/2 ML NEBU NEB SCH (11:45)
[2019-07-03 15:44] VITALS: BP 98/64
[2019-07-03] MEDS: risperiDONE 0.25 MG TABLET. PO SCH (20:41)
[2019-07-03] MEDS: GABAPENTIN 400 MG CAPSULE. PO SCH (20:41)
[2019-07-03] MEDS: lamoTRIgine 25 MG TABLET. PO SCH (20:41)
[2019-07-03] MEDS: MIRTAZAPINE 7.5 MG TABLET. PO SCH (20:42)
[2019-07-03] MEDS: ATORVASTATIN CALCIUM 20 MG TABLET PO SCH (20:43)
--- NOTE | 2019-07-03 21:53 | PDOC ---
Exam Note: Vick Note: Please also refer to the separate dictated note~for this date of service dictated separately.~Patient seen individually. Discussed the patient with Nursing staff reviewed the chart.~Reviewed interim history and current functioning. Reviewed vital signs,~Labs/ Radiology~and current medications noted below. Continue current treatment with the changes noted in the dictated addendum note Assessment: Vital Signs/I&O: Vital Signs Date Time Temp Pulse Resp B/P (MAP) Pulse Ox O2 Delivery O2 Flow Rate FiO2 07/03/19 20:58 90 123/80 07/03/19 20:48 95 Room Air 07/03/19 15:44 98.1 20 I & O 07/02/19 07/02/19 07/03/19 15:00 23:00 07:00 Intake Total 1080 ml 360 ml 240 ml Balance 1080 ml 360 ml 240 ml Current Medications: I have reviewed the current psychotropics carefully including drug interactions. Risk benefit ratio favors no change other than as noted in my dictated progress note. Diagnosis: Problems: (1) Anxiety disorder (2) Bipolar 1 disorder, mixed, moderate (3) Dementia, vascular, with delusions (4) Dementia, vascular, with depression (5) Dementia in Alzheimer's disease with depression (6) Dementia in Alzheimer's disease with delusions (7) Impulse control disorder ANGEL VILLA MD Jul 03, 2019 21:53
--- NOTE | 2019-07-04 03:16 | PN ---
DATE: 07/02/2019 PSYCHIATRIC PROGRESS NOTE This late entry 07/02/2019 covers elements not covered in my initial note. The patient slept 6 hours previous night. She was arguing at night, irritable during cares, but little better during the day on 07/02/2019. She was in conversation and argument with another patient whether the war was over, quite dramatic about this at times. REVIEW OF SYSTEMS: Ambulation impaired, in wheelchair, though she ambulates with some assistance with the prosthesis. No CV, , pulmonary, eye, ENT system symptoms on review. MENTAL STATUS EXAM: Reasonably oriented. Speech is coherent, abstraction fair, computation impaired, language function intact, attention span short. Mood and affect remain somewhat anxious, labile, but showing improvement. She had many questions about what prompted her admission. I went over in detail how she was admitted on June 19 from home. She was manic, speaking in Korean and Burkinan, wandering, restlessly for 2-3 days. She had been treated for her UTI recently prior to admission, was more irritable, impulsive, was making some sexual references, grandiosity, problem sleeping, concentrating, had failed outpatient psychiatric interventions. She denied, minimized, rationalized most of this in her lengthy discussion. IMPRESSION: Unchanged from initial note. PLAN: Continue current psychotropics. Lamictal has been gradually increased. Maintain Neurontin, Zyprexa p.r.n., Wellbutrin, Risperdal at 0.25 mg at bedtime, which we may need to increase gradually. ANGEL VILLA MD DR: TOMI/rusty JOB#: [id number] / [id number]
[2019-07-04] MEDS: BUDESONIDE 0.5 MG/2 ML NEBU NEB SCH ×2 (03:30→11:36)
[2019-07-04] MEDS: ALBUTEROL SULFATE 2.5 MG/3 ML NEBU. NEB SCH ×4 (03:30→16:30)
[2019-07-04 06:00] VITALS: BP 112/65
[2019-07-04] MEDS: OXYBUTYNIN CHLORIDE 5 MG TABLET PO SCH ×2 (09:15→22:29)
[2019-07-04] MEDS: CHOLECALCIFEROL (VITAMIN D3) 1,000 UNIT TABLET PO SCH (09:16)
[2019-07-04] MEDS: FUROSEMIDE 40 MG TABLET PO SCH (09:16)
[2019-07-04] MEDS: LISINOPRIL 5 MG TABLET. PO SCH (09:17)
[2019-07-04] MEDS: METOPROLOL TART IMMED RELEASE 25 MG TABLET PO SCH ×2 (09:17→22:29)
[2019-07-04] MEDS: ASPIRIN ENTERIC COATED 325 MG TABLET.DR. PO SCH (09:17)
[2019-07-04] MEDS: buPROPion XL 150 MG TAB.ER.24H PO SCH (09:17)
[2019-07-04] MEDS: NICOTINE 21MG PATCH. TD SCH (09:17)
[2019-07-04] MEDS: CALCIUM CARB/VIT D3 500/200 TABLET PO SCH ×2 (09:17→22:33)
[2019-07-04] MEDS: LACTOBACILLUS RHAMNOSUS GG 1 CAPSULE. PO SCH ×2 (09:17→22:30)
[2019-07-04] MEDS: MULTIVITAMIN with MINERAL TABLET. PO SCH (09:17)
[2019-07-04] MEDS: CETIRIZINE HCL 10 MG TABLET PO SCH (09:17)
[2019-07-04] MEDS: GABAPENTIN 300 MG CAPSULE. PO SCH (09:19)
[2019-07-04 15:39] VITALS: BP 101/58
[2019-07-04] MEDS: HYDROcodone/APAP 5/325MG 1 TAB TABLET PO PRN (15:54)
--- NOTE | 2019-07-04 21:58 | PDOC ---
Exam Note: Vick Note: Please also refer to the separate dictated note~for this date of service dictated separately.~Patient seen individually. Discussed the patient with Nursing staff reviewed the chart.~Reviewed interim history and current functioning. Reviewed vital signs,~Labs/ Radiology~and current medications noted below. Continue current treatment with the changes noted in the dictated addendum note Assessment: Vital Signs/I&O: Vital Signs Date Time Temp Pulse Resp B/P (MAP) Pulse Ox O2 Delivery O2 Flow Rate FiO2 07/04/19 20:40 96 Room Air 07/04/19 19:10 18 07/04/19 15:39 98.9 85 101/58 (72) I & O 07/03/19 07/03/19 07/04/19 15:00 23:00 07:00 Intake Total 840 ml 360 ml 240 ml Balance 840 ml 360 ml 240 ml Current Medications: I have reviewed the current psychotropics carefully including drug interactions. Risk benefit ratio favors no change other than as noted in my dictated progress note. Diagnosis: Problems: (1) Anxiety disorder (2) Bipolar 1 disorder, mixed, moderate (3) Dementia, vascular, with delusions (4) Dementia, vascular, with depression (5) Dementia in Alzheimer's disease with depression (6) Dementia in Alzheimer's disease with delusions (7) Impulse control disorder ANGEL VILLA MD Jul 04, 2019 21:58
[2019-07-04] MEDS: GABAPENTIN 400 MG CAPSULE. PO SCH (22:28)
[2019-07-04] MEDS: MIRTAZAPINE 7.5 MG TABLET. PO SCH (22:29)
[2019-07-04] MEDS: lamoTRIgine 25 MG TABLET. PO SCH (22:29)
[2019-07-04] MEDS: ATORVASTATIN CALCIUM 20 MG TABLET PO SCH (22:29)
[2019-07-04] MEDS: risperiDONE 0.5 MG TABLET. PO SCH (22:31)
--- NOTE | 2019-07-05 00:07 | PN ---
DATE: 07/03/2019 PSYCHIATRIC PROGRESS NOTE This late entry 07/03/2019 covers elements not covered in my initial note. SUBJECTIVE: I met with the patient evening of 07/03/2019. The patient slept 5-1/4 hours previous rola alexi Hernández RN. She was agitated at night, but did come out during the day in the day room and did much better. She gets agitated secondary to loud noises around her and complains of back hurting. REVIEW OF SYSTEMS: Ambulation impaired, in a wheelchair. She does have a prosthesis unilaterally lower extremities. No CV, , pulmonary, eye system symptoms on review. MENTAL STATUS EXAMINATION: The patient is reasonably oriented. Speech is coherent, a little pressured at times. She is quite animated, expressive, abstraction fair, computation impaired, language function intact, attention span short. Mood and affect remain somewhat anxious, labile. LABORATORY DATA: Reviewed. IMPRESSION: Unchanged from initial note. PLAN: No change from initial note. Lamictal is being adjusted, Risperdal will be maintained 0.25 mg at bedtime, Wellbutrin, Neurontin, unchanged for now. MAN Shai VILLA MD DR: TOMI/rusty JOB#: [id number] / [id number]
[2019-07-05] MEDS: ALBUTEROL SULFATE 2.5 MG/3 ML NEBU. NEB SCH ×4 (01:20→15:36)
[2019-07-05] MEDS: BUDESONIDE 0.5 MG/2 ML NEBU NEB SCH ×2 (01:21→09:59)
[2019-07-05 05:40] VITALS: BP 101/66
[2019-07-05] MEDS: ALENDRONATE SODIUM 35 MG TABLET PO SCH (06:28)
[2019-07-05] MEDS: NICOTINE 21MG PATCH. TD SCH (08:13)
[2019-07-05] MEDS: ASPIRIN ENTERIC COATED 325 MG TABLET.DR. PO SCH (08:13)
[2019-07-05] MEDS: METOPROLOL TART IMMED RELEASE 25 MG TABLET PO SCH ×2 (08:14→21:00)
[2019-07-05] MEDS: FUROSEMIDE 40 MG TABLET PO SCH (08:14)
[2019-07-05] MEDS: LACTOBACILLUS RHAMNOSUS GG 1 CAPSULE. PO SCH ×2 (08:15→20:03)
[2019-07-05] MEDS: CETIRIZINE HCL 10 MG TABLET PO SCH (08:15)
[2019-07-05] MEDS: CHOLECALCIFEROL (VITAMIN D3) 1,000 UNIT TABLET PO SCH (08:15)
[2019-07-05] MEDS: MULTIVITAMIN with MINERAL TABLET. PO SCH (08:15)
[2019-07-05] MEDS: OXYBUTYNIN CHLORIDE 5 MG TABLET PO SCH ×2 (08:15→20:06)
[2019-07-05] MEDS: buPROPion XL 150 MG TAB.ER.24H PO SCH (08:15)
[2019-07-05] MEDS: CALCIUM CARB/VIT D3 500/200 TABLET PO SCH ×2 (08:15→20:03)
[2019-07-05] MEDS: LISINOPRIL 5 MG TABLET. PO SCH (08:19)
[2019-07-05] MEDS: GABAPENTIN 300 MG CAPSULE. PO SCH (08:19)
[2019-07-05 16:27] VITALS: BP 98/64
[2019-07-05] MEDS: lamoTRIgine 25 MG TABLET. PO SCH (20:02)
[2019-07-05] MEDS: GABAPENTIN 400 MG CAPSULE. PO SCH (20:03)
[2019-07-05] MEDS: ATORVASTATIN CALCIUM 20 MG TABLET PO SCH (20:03)
[2019-07-05] MEDS: MIRTAZAPINE 7.5 MG TABLET. PO SCH (20:05)
[2019-07-05] MEDS: risperiDONE 0.5 MG TABLET. PO SCH (20:06)
--- NOTE | 2019-07-05 21:38 | PDOC ---
Exam Note: Vick Note: Please also refer to the separate dictated note~for this date of service dictated separately.~Patient seen individually. Discussed the patient with Nursing staff reviewed the chart.~Reviewed interim history and current functioning. Reviewed vital signs,~Labs/ Radiology~and current medications noted below. Continue current treatment with the changes noted in the dictated addendum note Assessment: Vital Signs/I&O: Vital Signs Date Time Temp Pulse Resp B/P (MAP) Pulse Ox O2 Delivery O2 Flow Rate FiO2 07/05/19 20:35 97 Room Air 07/05/19 16:27 98.1 66 18 98/64 (75) I & O 07/04/19 07/04/19 07/05/19 14:59 22:59 06:59 Intake Total 960 ml 240 ml 120 ml Balance 960 ml 240 ml 120 ml Current Medications: I have reviewed the current psychotropics carefully including drug interactions. Risk benefit ratio favors no change other than as noted in my dictated progress note. Diagnosis: Problems: (1) Anxiety disorder (2) Bipolar 1 disorder, mixed, moderate (3) Dementia, vascular, with delusions (4) Dementia, vascular, with depression (5) Dementia in Alzheimer's disease with depression (6) Dementia in Alzheimer's disease with delusions (7) Impulse control disorder ANGEL VILLA MD Jul 05, 2019 21:38
[2019-07-06] MEDS: BUDESONIDE 0.5 MG/2 ML NEBU NEB SCH ×3 (04:52→20:25)
[2019-07-06] MEDS: ALBUTEROL SULFATE 2.5 MG/3 ML NEBU. NEB SCH ×5 (04:52→20:25)
[2019-07-06 05:42] VITALS: BP 92/56
[2019-07-06] MEDS: NICOTINE 21MG PATCH. TD SCH (07:55)
[2019-07-06] MEDS: LACTOBACILLUS RHAMNOSUS GG 1 CAPSULE. PO SCH ×2 (07:56→20:58)
[2019-07-06] MEDS: CHOLECALCIFEROL (VITAMIN D3) 1,000 UNIT TABLET PO SCH (07:56)
[2019-07-06] MEDS: ASPIRIN ENTERIC COATED 325 MG TABLET.DR. PO SCH (07:56)
[2019-07-06] MEDS: MULTIVITAMIN with MINERAL TABLET. PO SCH (07:56)
[2019-07-06] MEDS: CALCIUM CARB/VIT D3 500/200 TABLET PO SCH ×2 (07:57→20:52)
[2019-07-06] MEDS: OXYBUTYNIN CHLORIDE 5 MG TABLET PO SCH ×2 (07:57→20:58)
[2019-07-06] MEDS: FUROSEMIDE 40 MG TABLET PO SCH (07:57)
[2019-07-06] MEDS: CETIRIZINE HCL 10 MG TABLET PO SCH (07:57)
[2019-07-06] MEDS: buPROPion XL 300 MG TAB.ER.24H. PO SCH (07:59)
[2019-07-06] MEDS: GABAPENTIN 300 MG CAPSULE. PO SCH (07:59)
[2019-07-06] MEDS: LISINOPRIL 5 MG TABLET. PO SCH (09:00)
[2019-07-06] MEDS: METOPROLOL TART IMMED RELEASE 25 MG TABLET PO SCH ×2 (09:00→20:57)
[2019-07-06 16:32] VITALS: BP 94/69
[2019-07-06] MEDS: MIRTAZAPINE 7.5 MG TABLET. PO SCH (20:52)
[2019-07-06] MEDS: GABAPENTIN 400 MG CAPSULE. PO SCH (20:52)
[2019-07-06] MEDS: ATORVASTATIN CALCIUM 20 MG TABLET PO SCH (20:52)
[2019-07-06] MEDS: risperiDONE 0.5 MG TABLET. PO SCH (20:59)
[2019-07-06] MEDS: lamoTRIgine 100 MG TABLET. PO SCH (21:02)
--- NOTE | 2019-07-06 21:58 | PDOC ---
Exam Note: Vick Note: Please also refer to the separate dictated note~for this date of service dictated separately.~Patient seen individually. Discussed the patient with Nursing staff reviewed the chart.~Reviewed interim history and current functioning. Reviewed vital signs,~Labs/ Radiology~and current medications noted below. Continue current treatment with the changes noted in the dictated addendum note Assessment: Vital Signs/I&O: Vital Signs Date Time Temp Pulse Resp B/P (MAP) Pulse Ox O2 Delivery O2 Flow Rate FiO2 07/06/19 21:00 99 102/67 07/06/19 20:26 97 Room Air 07/06/19 16:32 98.5 16 I & O 07/05/19 07/05/19 07/06/19 15:00 23:00 07:00 Intake Total 720 ml 120 ml Balance 720 ml 120 ml Current Medications: Meds: Current Medications Medications (Trade) Dose Ordered Sig/Jesse Route PRN Reason Start Time Stop Time Status Last Admin Dose Admin Lamotrigine (LaMICtal) 100 mg HS PO 07/06/19 21:00 07/06/19 21:02 Bupropion HCl (Wellbutrin Xl) 300 mg DAILY PO 07/06/19 09:00 07/06/19 08:00 I have reviewed the current psychotropics carefully including drug interactions. Risk benefit ratio favors no change other than as noted in my dictated progress note. Diagnosis: Problems: (1) Anxiety disorder (2) Bipolar 1 disorder, mixed, moderate (3) Dementia, vascular, with delusions (4) Dementia, vascular, with depression (5) Dementia in Alzheimer's disease with depression (6) Dementia in Alzheimer's disease with delusions (7) Impulse control disorder ANGEL VILLA MD Jul 06, 2019 21:58
[2019-07-07] MEDS: ALBUTEROL SULFATE 2.5 MG/3 ML NEBU. NEB SCH ×4 (04:58→20:00)
[2019-07-07 05:08] VITALS: BP 101/48
--- NOTE | 2019-07-07 08:20 | PN ---
DATE: 07/04/2019 PSYCHIATRIC PROGRESS NOTE This late entry 07/04/2019 covers elements not covered in my initial note. SUBJECTIVE: I met with the patient evening of 07/04/2019 and staffed at treatment team meeting earlier in the day. The patient slept 6 hours average. Appetite is good 75%. She has been calmer, compliant, cooperative with cares and assessments, compliant with medications. REVIEW OF SYSTEMS: Ambulation impaired. No CV, , pulmonary, eye, ENT system symptoms on review. MENTAL STATUS EXAM: Reasonably oriented to place and situation. Speech is coherent, still a little pressured at times. Abstraction fair, computation impaired, language function intact. Mood and affect, lability, grandiosity is improved. LABORATORY DATA: Reviewed. IMPRESSION: Unchanged from initial note. PLAN: Increase the Risperdal to 0.5 mg at bedtime given some of her intermittent paranoia. She may need long-term care. Social service staff will explore this. ANGEL VILLA MD DR: TOMI/rusty JOB#: [id number] / [id number]
[2019-07-07] MEDS: ASPIRIN ENTERIC COATED 325 MG TABLET.DR. PO SCH (09:59)
[2019-07-07] MEDS: OXYBUTYNIN CHLORIDE 5 MG TABLET PO SCH ×2 (09:59→20:08)
[2019-07-07] MEDS: LACTOBACILLUS RHAMNOSUS GG 1 CAPSULE. PO SCH ×2 (09:59→20:08)
[2019-07-07] MEDS: BUDESONIDE 0.5 MG/2 ML NEBU NEB SCH ×2 (10:05→20:00)
[2019-07-07 10:08] VITALS: BP 120/73
[2019-07-07] MEDS: FUROSEMIDE 40 MG TABLET PO SCH (10:09)
[2019-07-07] MEDS: CALCIUM CARB/VIT D3 500/200 TABLET PO SCH ×2 (10:11→20:08)
[2019-07-07] MEDS: buPROPion XL 300 MG TAB.ER.24H. PO SCH (10:11)
[2019-07-07] MEDS: CHOLECALCIFEROL (VITAMIN D3) 1,000 UNIT TABLET PO SCH (10:11)
[2019-07-07] MEDS: MULTIVITAMIN with MINERAL TABLET. PO SCH (10:11)
[2019-07-07] MEDS: METOPROLOL TART IMMED RELEASE 25 MG TABLET PO SCH ×2 (10:11→20:09)
[2019-07-07] MEDS: NICOTINE 21MG PATCH. TD SCH (10:11)
[2019-07-07] MEDS: CETIRIZINE HCL 10 MG TABLET PO SCH (10:11)
[2019-07-07] MEDS: LISINOPRIL 5 MG TABLET. PO SCH (10:11)
[2019-07-07] MEDS: GABAPENTIN 300 MG CAPSULE. PO SCH (10:12)
[2019-07-07 13:16] LABS: BASO # 0.1 x10^3/uL (0.0-0.2); BASO % 1 % (0-3); EOS # 0.1 x10^3/uL (0.0-0.7); EOS % 2 % (0-3); HEMOGLOBIN 13.8 g/dL (12.0-15.5); LYMPH # 1.3 x10^3/uL (1.0-4.8); LYMPH % 19 % (24-48); MEAN CORPUSCULAR HEMOGLOBIN 33 pg (25-35); MEAN CORPUSCULAR HGB CONC 34 g/dL (31-37); MEAN CORPUSCULAR VOLUME 97 fL (79-100); MONO # 0.6 x10^3/uL (0.0-1.1); MONO % 8 % (0-9); NEUT % 71 % (31-73); PLATELET COUNT 205 x10^3/uL (140-400); RED BLOOD COUNT 4.23 x10^6/uL (3.50-5.40)
[2019-07-07 13:28] LABS: ALBUMIN 3.4 g/dL (3.4-5.0); ALBUMIN/GLOBULIN RATIO 0.7 (1.0-1.7); CALCIUM 9.7 mg/dL (8.5-10.1); CREATININE 1.4 mg/dL (0.6-1.0); GFR 37.4; TOTAL BILIRUBIN 0.4 mg/dL (0.2-1.0); TOTAL PROTEIN 8.1 g/dL (6.4-8.2)
[2019-07-07 15:50] VITALS: BP 95/65
--- NOTE | 2019-07-07 19:29 | PN ---
DATE: 07/05/2019 PSYCHIATRIC PROGRESS NOTE This late entry 07/05/2019 covers elements not covered in my initial note. SUBJECTIVE: I met with the patient evening of 07/05/2019. The patient slept 5 hours previous night. She has been somewhat upset and depressed at times, refused to use the prosthesis, then did better after that. REVIEW OF SYSTEMS: Ambulation impaired, in wheelchair. No CV, , pulmonary, eye, ENT system symptoms on review. MENTAL STATUS EXAM: Reasonably oriented. Speech is coherent, abstraction fair, computation impaired, language function intact. She can be a little hyperverbal at times, but much more organized. LABORATORY DATA: Reviewed. IMPRESSION: Unchanged from initial note. PLAN: Increase Wellbutrin-XL from 150 mg a day to 300 mg a day. Continue to increase Lamictal and Risperdal was adjusted. Maintain Neurontin along with Zyprexa p.r.n. Rest unchanged from initial note. ANGEL VILLA MD DR: TOMI/rusty JOB#: [id number] / [id number]
[2019-07-07] MEDS: MIRTAZAPINE 7.5 MG TABLET. PO SCH (20:08)
[2019-07-07] MEDS: risperiDONE 0.5 MG TABLET. PO SCH (20:08)
[2019-07-07] MEDS: lamoTRIgine 100 MG TABLET. PO SCH (20:08)
[2019-07-07] MEDS: ATORVASTATIN CALCIUM 20 MG TABLET PO SCH (20:08)
[2019-07-07] MEDS: GABAPENTIN 400 MG CAPSULE. PO SCH (20:08)
--- NOTE | 2019-07-07 22:13 | PN ---
DATE: 07/06/2019 PSYCHIATRIC PROGRESS NOTE This late entry 07/06/2019 covers elements not covered in my initial note. SUBJECTIVE: I met with the patient evening of 07/06/2019. The patient slept 7-1/2 hours previous night. Per Edgar RN, the patient has done better during the day. She has been happy, somewhat disorganized, but pleasant. REVIEW OF SYSTEMS: Ambulation impaired, in wheelchair. She does have a prosthesis. No CV, , pulmonary, eye system symptoms on review. MENTAL STATUS EXAM: Reasonably oriented. Speech is coherent, less pressured. Abstraction fair, computation impaired, language function intact, attention span short. Mood and affect is overall improved, less labile. LABORATORY DATA: Reviewed. IMPRESSION: Unchanged from initial note. PLAN: No change from initial note. Maintain Neurontin, Zyprexa p.r.n., Wellbutrin, Lamictal, Risperdal, and Remeron. Wellbutrin was increased and she is tolerating it well. ANGEL VILLA MD DR: TOMI/rusty JOB#: [id number] / [id number]
--- NOTE | 2019-07-07 22:58 | PDOC ---
Exam Note: Vick Note: Please also refer to the separate dictated note~for this date of service dictated separately.~Patient seen individually. Discussed the patient with Nursing staff reviewed the chart.~Reviewed interim history and current functioning. Reviewed vital signs,~Labs/ Radiology~and current medications noted below. Continue current treatment with the changes noted in the dictated addendum note Assessment: Vital Signs/I&O: Vital Signs Date Time Temp Pulse Resp B/P (MAP) Pulse Ox O2 Delivery O2 Flow Rate FiO2 07/07/19 20:09 72 95/65 07/07/19 15:59 96 Room Air 07/07/19 15:50 97.9 20 I & O 07/06/19 07/06/19 07/07/19 15:00 23:00 07:00 Intake Total 720 ml 240 ml 420 ml Balance 720 ml 240 ml 420 ml Labs: Laboratory Tests Test 07/07/19 13:00 White Blood Count 7.0 x10^3/uL (4.0-11.0) Red Blood Count 4.23 x10^6/uL (3.50-5.40) Hemoglobin 13.8 g/dL (12.0-15.5) Hematocrit 41.0 % (36.0-47.0) Mean Corpuscular Volume 97 fL (79-100) Mean Corpuscular Hemoglobin 33 pg (25-35) Mean Corpuscular Hemoglobin Concent 34 g/dL (31-37) Red Cell Distribution Width 14.0 % (11.5-14.5) Platelet Count 205 x10^3/uL (140-400) Neutrophils (%) (Auto) 71 % (31-73) Lymphocytes (%) (Auto) 19 % (24-48) L Monocytes (%) (Auto) 8 % (0-9) Eosinophils (%) (Auto) 2 % (0-3) Basophils (%) (Auto) 1 % (0-3) Neutrophils # (Auto) 5.0 x10^3uL (1.8-7.7) Lymphocytes # (Auto) 1.3 x10^3/uL (1.0-4.8) Monocytes # (Auto) 0.6 x10^3/uL (0.0-1.1) Eosinophils # (Auto) 0.1 x10^3/uL (0.0-0.7) Basophils # (Auto) 0.1 x10^3/uL (0.0-0.2) Sodium Level 137 mmol/L (136-145) Potassium Level 4.0 mmol/L (3.5-5.1) Chloride Level 97 mmol/L (98-107) L Carbon Dioxide Level 31 mmol/L (21-32) Anion Gap 9 (6-14) Blood Urea Nitrogen 39 mg/dL (7-20) H Creatinine 1.4 mg/dL (0.6-1.0) H Estimated GFR (Cockcroft-Gault) 37.4 BUN/Creatinine Ratio 28 (6-20) H Glucose Level 130 mg/dL (70-99) H Calcium Level 9.7 mg/dL (8.5-10.1) Total Bilirubin 0.4 mg/dL (0.2-1.0) Aspartate Amino Transferase (AST) 21 U/L (15-37) Alanine Aminotransferase (ALT) 26 U/L (14-59) Alkaline Phosphatase 170 U/L (46-116) H Total Protein 8.1 g/dL (6.4-8.2) Albumin 3.4 g/dL (3.4-5.0) Albumin/Globulin Ratio 0.7 (1.0-1.7) L Current Medications: I have reviewed the current psychotropics carefully including drug interactions. Risk benefit ratio favors no change other than as noted in my dictated progress note. Diagnosis: Problems: (1) Anxiety disorder (2) Bipolar 1 disorder, mixed, moderate (3) Dementia, vascular, with delusions (4) Dementia, vascular, with depression (5) Dementia in Alzheimer's disease with depression (6) Dementia in Alzheimer's disease with delusions (7) Impulse control disorder ANGEL VILLA MD Jul 07, 2019 22:58
[2019-07-08] MEDS: ALBUTEROL SULFATE 2.5 MG/3 ML NEBU. NEB SCH ×4 (05:07→19:31)
[2019-07-08 06:08] VITALS: BP 124/77
[2019-07-08] MEDS: HYDROcodone/APAP 5/325MG 1 TAB TABLET PO PRN ×2 (06:43→21:56)
[2019-07-08] MEDS: NICOTINE 21MG PATCH. TD SCH (08:29)
[2019-07-08] MEDS: LACTOBACILLUS RHAMNOSUS GG 1 CAPSULE. PO SCH ×2 (08:30→19:56)
[2019-07-08] MEDS: MULTIVITAMIN with MINERAL TABLET. PO SCH (08:30)
[2019-07-08] MEDS: CALCIUM CARB/VIT D3 500/200 TABLET PO SCH ×2 (08:30→19:57)
[2019-07-08] MEDS: CHOLECALCIFEROL (VITAMIN D3) 1,000 UNIT TABLET PO SCH (08:30)
[2019-07-08] MEDS: LISINOPRIL 5 MG TABLET. PO SCH (08:31)
[2019-07-08] MEDS: METOPROLOL TART IMMED RELEASE 25 MG TABLET PO SCH ×2 (08:31→19:58)
[2019-07-08] MEDS: ASPIRIN ENTERIC COATED 325 MG TABLET.DR. PO SCH (08:31)
[2019-07-08] MEDS: FUROSEMIDE 40 MG TABLET PO SCH (08:31)
[2019-07-08] MEDS: CETIRIZINE HCL 10 MG TABLET PO SCH (08:31)
[2019-07-08] MEDS: buPROPion XL 300 MG TAB.ER.24H. PO SCH (08:31)
[2019-07-08] MEDS: OXYBUTYNIN CHLORIDE 5 MG TABLET PO SCH ×2 (08:32→19:56)
[2019-07-08] MEDS: GABAPENTIN 300 MG CAPSULE. PO SCH (08:35)
[2019-07-08] MEDS: BUDESONIDE 0.5 MG/2 ML NEBU NEB SCH ×2 (10:03→19:31)
[2019-07-08 15:51] VITALS: BP 102/65
[2019-07-08] MEDS: MIRTAZAPINE 7.5 MG TABLET. PO SCH (19:56)
[2019-07-08] MEDS: ATORVASTATIN CALCIUM 20 MG TABLET PO SCH (19:57)
[2019-07-08] MEDS: GABAPENTIN 400 MG CAPSULE. PO SCH (19:57)
[2019-07-08] MEDS: lamoTRIgine 100 MG TABLET. PO SCH (19:57)
[2019-07-08] MEDS: risperiDONE 0.5 MG TABLET. PO SCH (19:58)
--- NOTE | 2019-07-08 21:34 | PDOC ---
Exam Note: Vick Note: Please also refer to the separate dictated note~for this date of service dictated separately.~Patient seen individually. Discussed the patient with Nursing staff reviewed the chart.~Reviewed interim history and current functioning. Reviewed vital signs,~Labs/ Radiology~and current medications noted below. Continue current treatment with the changes noted in the dictated addendum note Assessment: Vital Signs/I&O: Vital Signs Date Time Temp Pulse Resp B/P (MAP) Pulse Ox O2 Delivery O2 Flow Rate FiO2 07/08/19 19:58 76 102/65 07/08/19 19:34 98 Room Air 07/08/19 15:51 98.3 16 I & O 07/07/19 07/07/19 07/08/19 15:00 23:00 07:00 Intake Total 1200 ml 360 ml Balance 1200 ml 360 ml Current Medications: I have reviewed the current psychotropics carefully including drug interactions. Risk benefit ratio favors no change other than as noted in my dictated progress note. Diagnosis: Problems: (1) Anxiety disorder (2) Bipolar 1 disorder, mixed, moderate (3) Dementia, vascular, with delusions (4) Dementia, vascular, with depression (5) Dementia in Alzheimer's disease with depression (6) Dementia in Alzheimer's disease with delusions (7) Impulse control disorder ANGEL VILLA MD Jul 08, 2019 21:34
[2019-07-09] MEDS: BUDESONIDE 0.5 MG/2 ML NEBU NEB SCH ×2 (04:47→20:01)
[2019-07-09] MEDS: ALBUTEROL SULFATE 2.5 MG/3 ML NEBU. NEB SCH ×4 (04:47→20:01)
[2019-07-09 06:02] VITALS: BP 107/70
[2019-07-09] MEDS: NICOTINE 21MG PATCH. TD SCH (07:58)
[2019-07-09] MEDS: CETIRIZINE HCL 10 MG TABLET PO SCH (07:58)
[2019-07-09] MEDS: GABAPENTIN 300 MG CAPSULE. PO SCH (07:58)
[2019-07-09] MEDS: OXYBUTYNIN CHLORIDE 5 MG TABLET PO SCH ×2 (07:59→19:36)
[2019-07-09] MEDS: FUROSEMIDE 40 MG TABLET PO SCH (07:59)
[2019-07-09] MEDS: CHOLECALCIFEROL (VITAMIN D3) 1,000 UNIT TABLET PO SCH (07:59)
[2019-07-09] MEDS: METOPROLOL TART IMMED RELEASE 25 MG TABLET PO SCH ×2 (08:00→20:12)
[2019-07-09] MEDS: ASPIRIN ENTERIC COATED 325 MG TABLET.DR. PO SCH (08:00)
[2019-07-09] MEDS: CALCIUM CARB/VIT D3 500/200 TABLET PO SCH ×2 (08:01→19:36)
[2019-07-09] MEDS: LISINOPRIL 5 MG TABLET. PO SCH (08:01)
[2019-07-09] MEDS: LACTOBACILLUS RHAMNOSUS GG 1 CAPSULE. PO SCH ×2 (08:01→19:36)
[2019-07-09] MEDS: MULTIVITAMIN with MINERAL TABLET. PO SCH (08:01)
[2019-07-09] MEDS: buPROPion XL 300 MG TAB.ER.24H. PO SCH (08:01)
[2019-07-09] MEDS: HYDROcodone/APAP 5/325MG 1 TAB TABLET PO PRN ×2 (15:11→21:16)
[2019-07-09 15:55] VITALS: BP 92/60
--- NOTE | 2019-07-09 18:38 | PN ---
DATE: 07/08/2019 PSYCHIATRIC PROGRESS NOTE This late entry 07/08 covers elements not covered in my initial note. SUBJECTIVE: I met with the patient evening of 07/08. The patient slept for 3/4 hours previous night. Overall, she has done better per nursing report. Reportedly, her ex- is in town and she has been a little more agitated about this. REVIEW OF SYSTEMS: Ambulation impaired, in wheelchair. No CV, , pulmonary, eye system symptoms on review. MENTAL STATUS EXAM: Oriented to herself and situation. Speech coherent, a little pressured at times as I met with her in the evening. Abstraction fair, computation impaired, language function intact, attention span short. Mood and affect overall less labile at times, but other times she gets quite hyperverbal and anxious. No active suicidal or homicidal ideation. LABORATORY DATA: Reviewed. IMPRESSION: Unchanged from initial note. PLAN: Increase Lamictal to 125 mg at bedtime after she has been on 100 mg for 5 days. Adjust further as clinically indicated. Rest unchanged. MAN Shai VILLA MD DR: TOMI/rusty JOB#: [id number] / [id number]
[2019-07-09] MEDS: ATORVASTATIN CALCIUM 20 MG TABLET PO SCH (19:34)
[2019-07-09] MEDS: risperiDONE 0.5 MG TABLET. PO SCH (19:35)
[2019-07-09] MEDS: MIRTAZAPINE 7.5 MG TABLET. PO SCH (19:36)
[2019-07-09] MEDS: lamoTRIgine 100 MG TABLET. PO SCH (19:36)
[2019-07-09] MEDS: GABAPENTIN 400 MG CAPSULE. PO SCH (20:14)
--- NOTE | 2019-07-09 21:37 | PDOC ---
Exam Note: Vick Note: Please also refer to the separate dictated note~for this date of service dictated separately.~Patient seen individually. Discussed the patient with Nursing staff reviewed the chart.~Reviewed interim history and current functioning. Reviewed vital signs,~Labs/ Radiology~and current medications noted below. Continue current treatment with the changes noted in the dictated addendum note Assessment: Vital Signs/I&O: Vital Signs Date Time Temp Pulse Resp B/P (MAP) Pulse Ox O2 Delivery O2 Flow Rate FiO2 07/09/19 21:16 94 07/09/19 20:14 83 92/60 07/09/19 20:06 Room Air 07/09/19 17:30 16 07/09/19 15:55 98.6 I & O 07/08/19 07/08/19 07/09/19 15:00 23:00 07:00 Intake Total 600 ml 240 ml 240 ml Balance 600 ml 240 ml 240 ml Current Medications: Meds: Current Medications Medications (Trade) Dose Ordered Sig/Jesse Route PRN Reason Start Time Stop Time Status Last Admin Dose Admin Risperidone (RisperDAL) 0.75 mg QHS PO 07/09/19 21:00 07/09/19 19:37 I have reviewed the current psychotropics carefully including drug interactions. Risk benefit ratio favors no change other than as noted in my dictated progress note. Diagnosis: Problems: (1) Anxiety disorder (2) Bipolar 1 disorder, mixed, moderate (3) Dementia, vascular, with delusions (4) Dementia, vascular, with depression (5) Dementia in Alzheimer's disease with depression (6) Dementia in Alzheimer's disease with delusions (7) Impulse control disorder ANGEL VILLA MD Jul 09, 2019 21:37
--- NOTE | 2019-07-10 03:59 | PN ---
DATE: 07/07/2019 PSYCHIATRIC PROGRESS NOTE This late entry, 07/07/2019, covers elements not covered in my initial note. SUBJECTIVE: I met with the patient evening of 07/07/2019. The patient slept 5-3/4 hours previous night. She ambulates with a walker when wearing a prosthesis and wheelchair without prosthesis. She has been calm, cooperative, compliant with medications and assessments. She does get a little anxious, hyperverbal as was evident when I met with her in the evening, but overall better with mood lability. REVIEW OF SYSTEMS: Ambulation impaired as above. No CV, , pulmonary, eye, ENT system symptoms on review. MENTAL STATUS EXAM: Reasonably oriented. Speech coherent, can be rapid at times. Abstraction fair, computation impaired, language function intact. Mood and affect, lability is improved. LABORATORY DATA: Reviewed. IMPRESSION: Unchanged from initial note. PLAN: No change from initial note. ANGEL VILLA MD DR: TOMI/rusty JOB#: [id number] / [id number]
[2019-07-10] MEDS: ALBUTEROL SULFATE 2.5 MG/3 ML NEBU. NEB SCH ×4 (05:34→22:49)
[2019-07-10 06:28] VITALS: BP 95/40
[2019-07-10] MEDS: OXYBUTYNIN CHLORIDE 5 MG TABLET PO SCH ×2 (08:01→20:33)
[2019-07-10] MEDS: CETIRIZINE HCL 10 MG TABLET PO SCH (08:01)
[2019-07-10] MEDS: NICOTINE 21MG PATCH. TD SCH (08:01)
[2019-07-10] MEDS: ASPIRIN ENTERIC COATED 325 MG TABLET.DR. PO SCH (08:01)
[2019-07-10] MEDS: CHOLECALCIFEROL (VITAMIN D3) 1,000 UNIT TABLET PO SCH (08:01)
[2019-07-10] MEDS: MULTIVITAMIN with MINERAL TABLET. PO SCH (08:01)
[2019-07-10] MEDS: CALCIUM CARB/VIT D3 500/200 TABLET PO SCH ×2 (08:02→20:34)
[2019-07-10] MEDS: LACTOBACILLUS RHAMNOSUS GG 1 CAPSULE. PO SCH ×2 (08:02→20:32)
[2019-07-10] MEDS: buPROPion XL 300 MG TAB.ER.24H. PO SCH (08:03)
[2019-07-10] MEDS: FUROSEMIDE 40 MG TABLET PO SCH (08:03)
[2019-07-10] MEDS: GABAPENTIN 300 MG CAPSULE. PO SCH (08:05)
[2019-07-10] MEDS: HYDROcodone/APAP 5/325MG 1 TAB TABLET PO PRN (08:48)
[2019-07-10] MEDS: METOPROLOL TART IMMED RELEASE 25 MG TABLET PO SCH ×2 (09:00→20:34)
[2019-07-10] MEDS: LISINOPRIL 5 MG TABLET. PO SCH (09:00)
[2019-07-10] MEDS: BUDESONIDE 0.5 MG/2 ML NEBU NEB SCH ×2 (10:56→22:49)
[2019-07-10 16:52] VITALS: BP 96/62
--- NOTE | 2019-07-10 19:07 | PN ---
DATE: 07/09/2019 PSYCHIATRIC PROGRESS NOTE This late entry, 07/09/2019, covers elements not covered in my initial note. SUBJECTIVE: I met with the patient at length in her room in the evening, discussed with Meghan Warner, her social services analyst and with nursing staff. The patient has had a difficult day. She has been paranoid, had great difficulty previous night and during the day on 07/09/2019. She has been very sensitive to comments, but staff believing they are talking about her. At 11:00 a.m., she was agitated with aides, had to be in the [place] [facility], paranoid. Hyperverbal, agitated, labile as I met with her. REVIEW OF SYSTEMS: Ambulation impaired, in wheelchair. No CV, , pulmonary, eye, ENT system symptoms on review. Has vague somatic symptoms. Reliability varies. MENTAL STATUS EXAM: Oriented to herself and situation. Speech is coherent, abstraction fair, computation impaired, language function intact, attention span short. Mood and affect labile. She is quite paranoid. LABORATORY DATA: Reviewed. IMPRESSION: Bipolar disorder, mixed with psychotic features; anxiety disorder, unspecified; impulse control disorder, unspecified; personality disorder, unspecified. PLAN: As I met with her at length, she was convinced that the person who owned her mobile home did not want her, there is no one liked her including the staff. Quite paranoid, suspicious. We will increase the Risperdal from 0.5 mg at bedtime to 0.75 mg at bedtime and Lamictal was increased from 100 mg at bedtime to 125 mg at bedtime. Continue rest unchanged for now. MAN Shai VILLA MD DR: TOMI/rusty JOB#: [id number] / [id number]
[2019-07-10] MEDS: lamoTRIgine 100 MG TABLET. PO SCH (20:33)
[2019-07-10] MEDS: ATORVASTATIN CALCIUM 20 MG TABLET PO SCH (20:33)
[2019-07-10] MEDS: MIRTAZAPINE 7.5 MG TABLET. PO SCH (20:34)
[2019-07-10] MEDS: GABAPENTIN 400 MG CAPSULE. PO SCH (20:34)
[2019-07-10] MEDS: risperiDONE 0.5 MG TABLET. PO SCH (20:35)
--- NOTE | 2019-07-10 21:58 | PDOC ---
Exam Note: Vick Note: Please also refer to the separate dictated note~for this date of service dictated separately.~Patient seen individually. Discussed the patient with Nursing staff reviewed the chart.~Reviewed interim history and current functioning. Reviewed vital signs,~Labs/ Radiology~and current medications noted below. Continue current treatment with the changes noted in the dictated addendum note Assessment: Vital Signs/I&O: Vital Signs Date Time Temp Pulse Resp B/P (MAP) Pulse Ox O2 Delivery O2 Flow Rate FiO2 07/10/19 20:35 97 96/62 07/10/19 20:20 94 Room Air 07/10/19 16:52 98.6 16 I & O 07/09/19 07/09/19 07/10/19 15:00 23:00 07:00 Intake Total 360 ml 360 ml Balance 360 ml 360 ml Current Medications: I have reviewed the current psychotropics carefully including drug interactions. Risk benefit ratio favors no change other than as noted in my dictated progress note. Diagnosis: Problems: (1) Anxiety disorder (2) Bipolar 1 disorder, mixed, moderate (3) Dementia, vascular, with delusions (4) Dementia, vascular, with depression (5) Dementia in Alzheimer's disease with depression (6) Dementia in Alzheimer's disease with delusions (7) Impulse control disorder ANGEL VLILA MD Jul 10, 2019 21:58
[2019-07-11] MEDS: ALBUTEROL SULFATE 2.5 MG/3 ML NEBU. NEB SCH ×4 (06:12→20:00)
[2019-07-11 06:33] VITALS: BP 90/56
[2019-07-11] MEDS: FUROSEMIDE 40 MG TABLET PO SCH (07:41)
[2019-07-11] MEDS: OXYBUTYNIN CHLORIDE 5 MG TABLET PO SCH ×2 (07:41→19:49)
[2019-07-11] MEDS: GABAPENTIN 300 MG CAPSULE. PO SCH (07:41)
[2019-07-11] MEDS: LACTOBACILLUS RHAMNOSUS GG 1 CAPSULE. PO SCH ×2 (07:42→19:49)
[2019-07-11] MEDS: CHOLECALCIFEROL (VITAMIN D3) 1,000 UNIT TABLET PO SCH (07:42)
[2019-07-11] MEDS: NICOTINE 21MG PATCH. TD SCH (07:42)
[2019-07-11] MEDS: buPROPion XL 300 MG TAB.ER.24H. PO SCH (07:42)
[2019-07-11] MEDS: ASPIRIN ENTERIC COATED 325 MG TABLET.DR. PO SCH (07:42)
[2019-07-11] MEDS: CALCIUM CARB/VIT D3 500/200 TABLET PO SCH ×2 (07:42→19:50)
[2019-07-11] MEDS: CETIRIZINE HCL 10 MG TABLET PO SCH (07:42)
[2019-07-11] MEDS: MULTIVITAMIN with MINERAL TABLET. PO SCH (07:42)
[2019-07-11] MEDS: METOPROLOL TART IMMED RELEASE 25 MG TABLET PO SCH (09:00)
[2019-07-11] MEDS: LISINOPRIL 5 MG TABLET. PO SCH (09:00)
[2019-07-11] MEDS: BUDESONIDE 0.5 MG/2 ML NEBU NEB SCH ×2 (10:11→20:00)
[2019-07-11 17:01] VITALS: BP 95/66
[2019-07-11] MEDS: HYDROcodone/APAP 5/325MG 1 TAB TABLET PO PRN (18:37)
[2019-07-11] MEDS: MIRTAZAPINE 7.5 MG TABLET. PO SCH (19:50)
[2019-07-11] MEDS: ATORVASTATIN CALCIUM 20 MG TABLET PO SCH (19:50)
[2019-07-11] MEDS: GABAPENTIN 400 MG CAPSULE. PO SCH (19:50)
[2019-07-11] MEDS: risperiDONE 0.5 MG TABLET. PO SCH (19:51)
[2019-07-11] MEDS: lamoTRIgine 100 MG TABLET. PO SCH (19:52)
--- NOTE | 2019-07-11 21:43 | PDOC ---
Exam Note: Vick Note: Please also refer to the separate dictated note~for this date of service dictated separately.~Patient seen individually. Discussed the patient with Nursing staff reviewed the chart.~Reviewed interim history and current functioning. Reviewed vital signs,~Labs/ Radiology~and current medications noted below. Continue current treatment with the changes noted in the dictated addendum note Assessment: Vital Signs/I&O: Vital Signs Date Time Temp Pulse Resp B/P (MAP) Pulse Ox O2 Delivery O2 Flow Rate FiO2 07/11/19 19:48 92 Room Air 07/11/19 18:37 18 07/11/19 17:01 98.3 96 95/66 (76) I & O 07/10/19 07/10/19 07/11/19 15:00 23:00 07:00 Intake Total 840 ml 320 ml Balance 840 ml 320 ml Current Medications: Meds: Current Medications Medications (Trade) Dose Ordered Sig/Jesse Route PRN Reason Start Time Stop Time Status Last Admin Dose Admin Lamotrigine (LaMICtal) 125 mg HS PO 07/11/19 21:00 07/11/19 19:52 I have reviewed the current psychotropics carefully including drug interactions. Risk benefit ratio favors no change other than as noted in my dictated progress note. Diagnosis: Problems: (1) Anxiety disorder (2) Bipolar 1 disorder, mixed, moderate (3) Dementia, vascular, with delusions (4) Dementia, vascular, with depression (5) Dementia in Alzheimer's disease with depression (6) Dementia in Alzheimer's disease with delusions (7) Impulse control disorder ANGEL VILLA MD Jul 11, 2019 21:43
--- NOTE | 2019-07-12 02:57 | PN ---
DATE: 07/10/2019 PSYCHIATRIC PROGRESS NOTE This late entry, July 10, covers elements not covered in my initial note. SUBJECTIVE: I met with the patient evening of July 10 at length in her room. The patient slept 6-3/4 hours previous night. Per nursing report, the day before, she had marked mood lability, a little better during the day on July 10. She got Lortab at breakfast for pain, has been in the day room attending groups. However, as I met with her in the evening, initially she said she was a little better, stretched out her fingers to show me how little was, but then as we talked about the day and she talked about the fact that her DPOA friend has not had any contact with her, she got more emotional, anxious, rapid in her speech, little more disorganized. REVIEW OF SYSTEMS: Ambulation impaired, in wheelchair. No CV, , pulmonary, eye, ENT system symptoms on review. MENTAL STATUS EXAM: Oriented to herself and situation. Speech is coherent, rapid at times. Abstraction fair, computation impaired, language function intact, attention span short. Mood and affect, intermittently labile, generally showing some improvement. LABORATORY DATA: Reviewed. IMPRESSION: Unchanged from initial note. PLAN: No change from initial note. ANGEL VILLA MD DR: TOMI/rusty JOB#: [id number] / [id number]
[2019-07-12] MEDS: ALENDRONATE SODIUM 35 MG TABLET PO SCH (05:47)
[2019-07-12] MEDS: ALBUTEROL SULFATE 2.5 MG/3 ML NEBU. NEB SCH ×4 (05:58→20:18)
[2019-07-12 06:25] VITALS: BP 127/81
[2019-07-12] MEDS: NICOTINE 21MG PATCH. TD SCH (07:53)
[2019-07-12] MEDS: LACTOBACILLUS RHAMNOSUS GG 1 CAPSULE. PO SCH ×2 (07:53→19:48)
[2019-07-12] MEDS: FUROSEMIDE 40 MG TABLET PO SCH (07:53)
[2019-07-12] MEDS: buPROPion XL 300 MG TAB.ER.24H. PO SCH (07:54)
[2019-07-12] MEDS: ASPIRIN ENTERIC COATED 325 MG TABLET.DR. PO SCH (07:54)
[2019-07-12] MEDS: CHOLECALCIFEROL (VITAMIN D3) 1,000 UNIT TABLET PO SCH (07:54)
[2019-07-12] MEDS: MULTIVITAMIN with MINERAL TABLET. PO SCH (07:55)
[2019-07-12] MEDS: GABAPENTIN 300 MG CAPSULE. PO SCH (07:55)
[2019-07-12] MEDS: CETIRIZINE HCL 10 MG TABLET PO SCH (07:55)
[2019-07-12] MEDS: CALCIUM CARB/VIT D3 500/200 TABLET PO SCH ×2 (07:55→19:50)
[2019-07-12] MEDS: OXYBUTYNIN CHLORIDE 5 MG TABLET PO SCH ×2 (07:55→19:48)
[2019-07-12] MEDS: BUDESONIDE 0.5 MG/2 ML NEBU NEB SCH ×2 (11:18→20:18)
[2019-07-12 15:40] VITALS: BP 112/76
[2019-07-12] MEDS: HYDROcodone/APAP 5/325MG 1 TAB TABLET PO PRN (18:58)
[2019-07-12] MEDS: lamoTRIgine 100 MG TABLET. PO SCH (19:49)
[2019-07-12] MEDS: MIRTAZAPINE 7.5 MG TABLET. PO SCH (19:51)
[2019-07-12] MEDS: risperiDONE 0.5 MG TABLET. PO SCH (19:51)
[2019-07-12] MEDS: ATORVASTATIN CALCIUM 20 MG TABLET PO SCH (19:51)
[2019-07-12] MEDS: GABAPENTIN 400 MG CAPSULE. PO SCH (19:51)
--- NOTE | 2019-07-12 21:50 | PDOC ---
Exam Note: Vick Note: Please also refer to the separate dictated note~for this date of service dictated separately.~Patient seen individually. Discussed the patient with Nursing staff reviewed the chart.~Reviewed interim history and current functioning. Reviewed vital signs,~Labs/ Radiology~and current medications noted below. Continue current treatment with the changes noted in the dictated addendum note Assessment: Vital Signs/I&O: Vital Signs Date Time Temp Pulse Resp B/P (MAP) Pulse Ox O2 Delivery O2 Flow Rate FiO2 07/12/19 20:18 97 Room Air 07/12/19 19:58 16 07/12/19 15:40 98.5 84 112/76 (88) I & O 07/11/19 07/11/19 07/12/19 15:00 23:00 07:00 Intake Total 960 ml 480 ml 240 ml Balance 960 ml 480 ml 240 ml Current Medications: I have reviewed the current psychotropics carefully including drug interactions. Risk benefit ratio favors no change other than as noted in my dictated progress note. Diagnosis: Problems: (1) Anxiety disorder (2) Bipolar 1 disorder, mixed, moderate (3) Dementia, vascular, with delusions (4) Dementia, vascular, with depression (5) Dementia in Alzheimer's disease with depression (6) Dementia in Alzheimer's disease with delusions (7) Impulse control disorder ANGEL VILLA MD Jul 12, 2019 21:50
[2019-07-13 05:03] VITALS: BP 106/68
[2019-07-13] MEDS: ALBUTEROL SULFATE 2.5 MG/3 ML NEBU. NEB SCH ×4 (05:26→21:33)
[2019-07-13] MEDS: CETIRIZINE HCL 10 MG TABLET PO SCH (07:43)
[2019-07-13] MEDS: NICOTINE 21MG PATCH. TD SCH (07:44)
[2019-07-13] MEDS: CALCIUM CARB/VIT D3 500/200 TABLET PO SCH ×2 (07:44→19:35)
[2019-07-13] MEDS: GABAPENTIN 300 MG CAPSULE. PO SCH (07:44)
[2019-07-13] MEDS: OXYBUTYNIN CHLORIDE 5 MG TABLET PO SCH ×2 (07:44→19:34)
[2019-07-13] MEDS: MULTIVITAMIN with MINERAL TABLET. PO SCH (07:44)
[2019-07-13] MEDS: ASPIRIN ENTERIC COATED 325 MG TABLET.DR. PO SCH (07:44)
[2019-07-13] MEDS: CHOLECALCIFEROL (VITAMIN D3) 1,000 UNIT TABLET PO SCH (07:44)
[2019-07-13] MEDS: FUROSEMIDE 40 MG TABLET PO SCH (07:44)
[2019-07-13] MEDS: buPROPion XL 300 MG TAB.ER.24H. PO SCH (07:44)
[2019-07-13] MEDS: LACTOBACILLUS RHAMNOSUS GG 1 CAPSULE. PO SCH ×2 (07:44→19:33)
[2019-07-13] MEDS: BUDESONIDE 0.5 MG/2 ML NEBU NEB SCH ×2 (11:15→21:33)
[2019-07-13] MEDS: HYDROcodone/APAP 5/325MG 1 TAB TABLET PO PRN (14:30)
[2019-07-13 16:23] VITALS: BP 114/60
[2019-07-13] MEDS ORDERED: traZODone 50 MG TABLET. PO PRN (16:45)
--- NOTE | 2019-07-13 19:08 | PN ---
DATE: 07/11/2019 PSYCHIATRIC PROGRESS NOTE This late entry 07/11/2019 covers the elements not covered in my initial note. SUBJECTIVE: I met with the patient in the evening. Per Edgar, nurse RN, patient slept 7-1/2 hours previous night. She did well at night, had a good day 07/11/2019 with improved mood lability, less dramatic appearance. REVIEW OF SYSTEMS: Ambulation impaired, in wheelchair. No CV, , pulmonary, eye, ENT system symptoms on review. MENTAL STATUS EXAM: Reasonably oriented. Speech coherent, at times became pressured as we talked about some improvement in her mood and then the issue she has with Teddy, her DPOA and having signed over her mobile home to Teddy, so that she could meet criteria for Medicaid for placement. Otherwise, she has done well during the day. REVIEW OF SYSTEMS: No CV, , pulmonary, eye system symptoms on review. MENTAL STATUS EXAM: Reasonably oriented. Speech coherent, abstraction fair, computation impaired, language function intact, attention span short. Mood and affect, some mood lability persists, but improved. LABORATORY DATA: Reviewed. IMPRESSION: Unchanged from initial note. PLAN: No change from initial note. ANGEL VILLA MD DR: TOMI/rusty JOB#: [id number] / [id number]
[2019-07-13] MEDS: lamoTRIgine 100 MG TABLET. PO SCH (19:34)
[2019-07-13] MEDS: ATORVASTATIN CALCIUM 20 MG TABLET PO SCH (19:34)
[2019-07-13] MEDS: GABAPENTIN 400 MG CAPSULE. PO SCH (19:34)
[2019-07-13] MEDS: risperiDONE 0.5 MG TABLET. PO SCH (19:35)
[2019-07-13] MEDS: MIRTAZAPINE 7.5 MG TABLET. PO SCH (19:35)
--- NOTE | 2019-07-13 21:41 | PDOC ---
Exam Note: Vick Note: Please also refer to the separate dictated note~for this date of service dictated separately.~Patient seen individually. Discussed the patient with Nursing staff reviewed the chart.~Reviewed interim history and current functioning. Reviewed vital signs,~Labs/ Radiology~and current medications noted below. Continue current treatment with the changes noted in the dictated addendum note Assessment: Vital Signs/I&O: Vital Signs Date Time Temp Pulse Resp B/P (MAP) Pulse Ox O2 Delivery O2 Flow Rate FiO2 07/13/19 19:40 95 Room Air 07/13/19 16:23 97.9 91 18 114/60 (78) I & O 07/12/19 07/12/19 07/13/19 14:59 22:59 06:59 Intake Total 960 ml 480 ml 240 ml Balance 960 ml 480 ml 240 ml Current Medications: I have reviewed the current psychotropics carefully including drug interactions. Risk benefit ratio favors no change other than as noted in my dictated progress note. Diagnosis: Problems: (1) Anxiety disorder (2) Bipolar 1 disorder, mixed, moderate (3) Dementia, vascular, with delusions (4) Dementia, vascular, with depression (5) Dementia in Alzheimer's disease with depression (6) Dementia in Alzheimer's disease with delusions (7) Impulse control disorder ANGEL VILLA MD Jul 13, 2019 21:41
--- NOTE | 2019-07-13 22:46 | PN ---
DATE: 07/12/2019 PSYCHIATRIC PROGRESS NOTE This late entry 07/12/2019 covers elements not covered in my initial note. SUBJECTIVE: I met with the patient evening of 07/12/2019. Staffed at a treatment team meeting with the entire team in the morning. Reviewed the patient's history and the fact that the daughter is getting a little more involved with the patient. The patient is alert, oriented x 3. Appetite 75-100%, slept 5-1/2 hours previous night, compliant with meds and shower. Reviewed her living arrangements and that Teddy may not want her to return back to the trailer, but other options may be limited. REVIEW OF SYSTEMS: Ambulation impaired, in wheelchair, though she has a prosthesis. No CV, , pulmonary, eye system symptoms on review. MENTAL STATUS EXAMINATION: Reasonably oriented. Speech coherent, little pressured. Abstraction fair, computation impaired, language function intact, attention span short. Mood and affect remains intermittently slightly grandiose. LABORATORY DATA: Reviewed. IMPRESSION: Bipolar 1 disorder, mixed with psychotic features, mild cognitive impairment. Rest unchanged. PLAN: Continue current psychotropics mentioned in initial note. Neurontin, Lamictal, Risperdal, Remeron, along with Wellbutrin-XL and Zyprexa p.r.n. ANGEL VILLA MD DR: TOMI/rusty JOB#: [id number] / [id number]
[2019-07-14] MEDS: ALBUTEROL SULFATE 2.5 MG/3 ML NEBU. NEB SCH ×4 (04:45→20:24)
[2019-07-14 05:08] VITALS: BP 124/78
[2019-07-14] MEDS: NICOTINE 21MG PATCH. TD SCH (08:08)
[2019-07-14] MEDS: OXYBUTYNIN CHLORIDE 5 MG TABLET PO SCH ×2 (08:08→20:20)
[2019-07-14] MEDS: GABAPENTIN 300 MG CAPSULE. PO SCH (08:09)
[2019-07-14] MEDS: CHOLECALCIFEROL (VITAMIN D3) 1,000 UNIT TABLET PO SCH (08:09)
[2019-07-14] MEDS: FUROSEMIDE 40 MG TABLET PO SCH (08:09)
[2019-07-14] MEDS: LACTOBACILLUS RHAMNOSUS GG 1 CAPSULE. PO SCH ×2 (08:09→20:20)
[2019-07-14] MEDS: CALCIUM CARB/VIT D3 500/200 TABLET PO SCH ×2 (08:09→20:21)
[2019-07-14] MEDS: CETIRIZINE HCL 10 MG TABLET PO SCH (08:09)
[2019-07-14] MEDS: MULTIVITAMIN with MINERAL TABLET. PO SCH (08:09)
[2019-07-14] MEDS: buPROPion XL 300 MG TAB.ER.24H. PO SCH (08:09)
[2019-07-14] MEDS: ASPIRIN ENTERIC COATED 325 MG TABLET.DR. PO SCH (08:09)
[2019-07-14 08:30] LABS: BASO % 0 % (0-3); EOS # 0.1 x10^3/uL (0.0-0.7); EOS % 2 % (0-3); HEMOGLOBIN 12.8 g/dL (12.0-15.5); LYMPH # 1.1 x10^3/uL (1.0-4.8); LYMPH % 15 % (24-48); MEAN CORPUSCULAR HEMOGLOBIN 33 pg (25-35); MEAN CORPUSCULAR HGB CONC 34 g/dL (31-37); MEAN CORPUSCULAR VOLUME 97 fL (79-100); MONO # 0.5 x10^3/uL (0.0-1.1); MONO % 7 % (0-9); NEUT # 5.3 x10^3uL (1.8-7.7); NEUT % 76 % (31-73); PLATELET COUNT 174 x10^3/uL (140-400); RED BLOOD COUNT 3.91 x10^6/uL (3.50-5.40)
[2019-07-14 08:49] LABS: ALBUMIN 3.4 g/dL (3.4-5.0); ALBUMIN/GLOBULIN RATIO 0.7 (1.0-1.7); CREATININE 1.5 mg/dL (0.6-1.0); GFR 34.5; POTASSIUM 4.2 mmol/L (3.5-5.1); TOTAL BILIRUBIN 0.4 mg/dL (0.2-1.0)
[2019-07-14] MEDS: BUDESONIDE 0.5 MG/2 ML NEBU NEB SCH ×2 (10:53→20:23)
[2019-07-14 15:27] VITALS: BP 133/81
[2019-07-14] MEDS: GABAPENTIN 400 MG CAPSULE. PO SCH (20:20)
[2019-07-14] MEDS: MIRTAZAPINE 7.5 MG TABLET. PO SCH (20:20)
[2019-07-14] MEDS: lamoTRIgine 100 MG TABLET. PO SCH (20:21)
[2019-07-14] MEDS: risperiDONE 0.5 MG TABLET. PO SCH (20:21)
[2019-07-14] MEDS: ATORVASTATIN CALCIUM 20 MG TABLET PO SCH (20:21)
--- NOTE | 2019-07-14 22:14 | PDOC ---
Exam Note: Vick Note: Please also refer to the separate dictated note~for this date of service dictated separately.~Patient seen individually. Discussed the patient with Nursing staff reviewed the chart.~Reviewed interim history and current functioning. Reviewed vital signs,~Labs/ Radiology~and current medications noted below. Continue current treatment with the changes noted in the dictated addendum note Assessment: Vital Signs/I&O: Vital Signs Date Time Temp Pulse Resp B/P (MAP) Pulse Ox O2 Delivery O2 Flow Rate FiO2 07/14/19 15:47 96 Room Air 07/14/19 15:27 98.2 92 18 133/81 (98) I & O 07/13/19 07/13/19 07/14/19 15:00 23:00 07:00 Intake Total 1440 ml 720 ml Balance 1440 ml 720 ml Labs: Laboratory Tests Test 07/14/19 07:58 White Blood Count 7.0 x10^3/uL (4.0-11.0) Red Blood Count 3.91 x10^6/uL (3.50-5.40) Hemoglobin 12.8 g/dL (12.0-15.5) Hematocrit 38.0 % (36.0-47.0) Mean Corpuscular Volume 97 fL (79-100) Mean Corpuscular Hemoglobin 33 pg (25-35) Mean Corpuscular Hemoglobin Concent 34 g/dL (31-37) Red Cell Distribution Width 14.0 % (11.5-14.5) Platelet Count 174 x10^3/uL (140-400) Neutrophils (%) (Auto) 76 % (31-73) H Lymphocytes (%) (Auto) 15 % (24-48) L Monocytes (%) (Auto) 7 % (0-9) Eosinophils (%) (Auto) 2 % (0-3) Basophils (%) (Auto) 0 % (0-3) Neutrophils # (Auto) 5.3 x10^3uL (1.8-7.7) Lymphocytes # (Auto) 1.1 x10^3/uL (1.0-4.8) Monocytes # (Auto) 0.5 x10^3/uL (0.0-1.1) Eosinophils # (Auto) 0.1 x10^3/uL (0.0-0.7) Basophils # (Auto) 0.0 x10^3/uL (0.0-0.2) Sodium Level 137 mmol/L (136-145) Potassium Level 4.2 mmol/L (3.5-5.1) Chloride Level 97 mmol/L (98-107) L Carbon Dioxide Level 31 mmol/L (21-32) Anion Gap 9 (6-14) Blood Urea Nitrogen 38 mg/dL (7-20) H Creatinine 1.5 mg/dL (0.6-1.0) H Estimated GFR (Cockcroft-Gault) 34.5 BUN/Creatinine Ratio 25 (6-20) H Glucose Level 96 mg/dL (70-99) Calcium Level 10.0 mg/dL (8.5-10.1) Total Bilirubin 0.4 mg/dL (0.2-1.0) Aspartate Amino Transferase (AST) 21 U/L (15-37) Alanine Aminotransferase (ALT) 23 U/L (14-59) Alkaline Phosphatase 159 U/L (46-116) H Total Protein 8.0 g/dL (6.4-8.2) Albumin 3.4 g/dL (3.4-5.0) Albumin/Globulin Ratio 0.7 (1.0-1.7) L Current Medications: I have reviewed the current psychotropics carefully including drug interactions. Risk benefit ratio favors no change other than as noted in my dictated progress note. Diagnosis: Problems: (1) Anxiety disorder (2) Bipolar 1 disorder, mixed, moderate (3) Dementia, vascular, with delusions (4) Dementia, vascular, with depression (5) Dementia in Alzheimer's disease with depression (6) Dementia in Alzheimer's disease with delusions (7) Impulse control disorder ANGEL VILLA MD Jul 14, 2019 22:14
[2019-07-15] MEDS: ALBUTEROL SULFATE 2.5 MG/3 ML NEBU. NEB SCH ×3 (05:06→15:40)
[2019-07-15 05:38] VITALS: BP 120/60
[2019-07-15] MEDS: LACTOBACILLUS RHAMNOSUS GG 1 CAPSULE. PO SCH ×2 (07:55→20:01)
[2019-07-15] MEDS: OXYBUTYNIN CHLORIDE 5 MG TABLET PO SCH ×2 (07:55→20:01)
[2019-07-15] MEDS: ASPIRIN ENTERIC COATED 325 MG TABLET.DR. PO SCH (07:55)
[2019-07-15] MEDS: NICOTINE 21MG PATCH. TD SCH (07:55)
[2019-07-15] MEDS: MULTIVITAMIN with MINERAL TABLET. PO SCH (07:55)
[2019-07-15] MEDS: CHOLECALCIFEROL (VITAMIN D3) 1,000 UNIT TABLET PO SCH (07:55)
[2019-07-15] MEDS: CETIRIZINE HCL 10 MG TABLET PO SCH (07:55)
[2019-07-15] MEDS: CALCIUM CARB/VIT D3 500/200 TABLET PO SCH ×2 (07:56→20:01)
[2019-07-15] MEDS: FUROSEMIDE 40 MG TABLET PO SCH (07:56)
[2019-07-15] MEDS: buPROPion XL 300 MG TAB.ER.24H. PO SCH (07:56)
[2019-07-15] MEDS: GABAPENTIN 300 MG CAPSULE. PO SCH (07:58)
--- NOTE | 2019-07-15 08:10 | PN ---
DATE: 07/13/2019 PSYCHIATRIC PROGRESS NOTE This late entry 07/13/2019 covers elements not covered in my initial note. SUBJECTIVE: I met with the patient evening of 07/13/2019. The patient slept 3-1/2 hours previous night. Overall, she has done little better, did put on her prosthesis, but will not leave it her own. REVIEW OF SYSTEMS: Impaired ambulation. No CV, , pulmonary, eye system symptoms on review. MENTAL STATUS EXAM: Oriented to herself and situation. Speech is coherent, rapid at times. Abstraction fair, computation impaired, language function intact, attention span short. Mood and affect somewhat labile, anxious at times. LABORATORY DATA: Reviewed. IMPRESSION: Unchanged from initial note. PLAN: We will go ahead and add trazodone 50 mg at bedtime p.r.n., may repeat x 1. Continue rest of the psychotropics unchanged for now. ANGEL VILLA MD DR: TOMI/rusty JOB#: [id number] / [id number]
[2019-07-15] MEDS: BUDESONIDE 0.5 MG/2 ML NEBU NEB SCH (10:39)
[2019-07-15 15:58] VITALS: BP 103/68
[2019-07-15] MEDS: MIRTAZAPINE 7.5 MG TABLET. PO SCH (20:00)
[2019-07-15] MEDS: ATORVASTATIN CALCIUM 20 MG TABLET PO SCH (20:01)
[2019-07-15] MEDS: lamoTRIgine 100 MG TABLET. PO SCH (20:02)
[2019-07-15] MEDS: GABAPENTIN 400 MG CAPSULE. PO SCH (20:05)
[2019-07-15] MEDS: risperiDONE 1 MG TABLET. PO SCH (20:11)
[2019-07-15] MEDS ORDERED: traZODone 50 MG TABLET. PO SCH (21:00)
--- NOTE | 2019-07-15 21:28 | PDOC ---
Exam Note: Vick Note: Please also refer to the separate dictated note~for this date of service dictated separately.~Patient seen individually. Discussed the patient with Nursing staff reviewed the chart.~Reviewed interim history and current functioning. Reviewed vital signs,~Labs/ Radiology~and current medications noted below. Continue current treatment with the changes noted in the dictated addendum note Assessment: Vital Signs/I&O: Vital Signs Date Time Temp Pulse Resp B/P (MAP) Pulse Ox O2 Delivery O2 Flow Rate FiO2 07/15/19 20:40 96 Room Air 07/15/19 15:58 98.0 92 18 103/68 (80) I & O 07/14/19 07/14/19 07/15/19 14:59 22:59 06:59 Intake Total 720 ml 360 ml 240 ml Balance 720 ml 360 ml 240 ml Current Medications: Meds: Current Medications Medications (Trade) Dose Ordered Sig/Jesse Route PRN Reason Start Time Stop Time Status Last Admin Dose Admin Risperidone (RisperDAL) 1 mg QHS PO 07/15/19 21:00 07/15/19 20:11 I have reviewed the current psychotropics carefully including drug interactions. Risk benefit ratio favors no change other than as noted in my dictated progress note. Diagnosis: Problems: (1) Anxiety disorder (2) Bipolar 1 disorder, mixed, moderate (3) Dementia, vascular, with delusions (4) Dementia, vascular, with depression (5) Dementia in Alzheimer's disease with depression (6) Dementia in Alzheimer's disease with delusions (7) Impulse control disorder ANGEL VILLA MD Jul 15, 2019 21:28
[2019-07-16 05:17] VITALS: BP 116/77
[2019-07-16] MEDS: BUDESONIDE 0.5 MG/2 ML NEBU NEB SCH ×3 (05:47→23:01)
[2019-07-16] MEDS: ALBUTEROL SULFATE 2.5 MG/3 ML NEBU. NEB SCH ×4 (05:47→23:01)
[2019-07-16] MEDS: NICOTINE 21MG PATCH. TD SCH (07:57)
[2019-07-16] MEDS: buPROPion XL 300 MG TAB.ER.24H. PO SCH (07:58)
[2019-07-16] MEDS: CALCIUM CARB/VIT D3 500/200 TABLET PO SCH ×2 (07:58→19:37)
[2019-07-16] MEDS: CETIRIZINE HCL 10 MG TABLET PO SCH (07:58)
[2019-07-16] MEDS: MULTIVITAMIN with MINERAL TABLET. PO SCH (07:58)
[2019-07-16] MEDS: FUROSEMIDE 40 MG TABLET PO SCH (07:58)
[2019-07-16] MEDS: ASPIRIN ENTERIC COATED 325 MG TABLET.DR. PO SCH (07:58)
[2019-07-16] MEDS: OXYBUTYNIN CHLORIDE 5 MG TABLET PO SCH ×2 (07:58→19:36)
[2019-07-16] MEDS: LACTOBACILLUS RHAMNOSUS GG 1 CAPSULE. PO SCH ×2 (07:58→19:35)
[2019-07-16] MEDS: CHOLECALCIFEROL (VITAMIN D3) 1,000 UNIT TABLET PO SCH (07:58)
[2019-07-16] MEDS: GABAPENTIN 300 MG CAPSULE. PO SCH (08:00)
[2019-07-16] MEDS: HYDROcodone/APAP 5/325MG 1 TAB TABLET PO PRN (10:08)
[2019-07-16 15:58] VITALS: BP 127/76
[2019-07-16] MEDS ORDERED: traZODone 50 MG TABLET. PO PRN (19:30)
[2019-07-16] MEDS: traZODone 50 MG TABLET. PO SCH (19:36)
[2019-07-16] MEDS: risperiDONE 1 MG TABLET. PO SCH (19:37)
[2019-07-16] MEDS: lamoTRIgine 100 MG TABLET. PO SCH (19:37)
[2019-07-16] MEDS: ATORVASTATIN CALCIUM 20 MG TABLET PO SCH (19:37)
[2019-07-16] MEDS: GABAPENTIN 400 MG CAPSULE. PO SCH (20:49)
--- NOTE | 2019-07-16 21:38 | PDOC ---
Exam Note: Vick Note: Please also refer to the separate dictated note~for this date of service dictated separately.~Patient seen individually. Discussed the patient with Nursing staff reviewed the chart.~Reviewed interim history and current functioning. Reviewed vital signs,~Labs/ Radiology~and current medications noted below. Continue current treatment with the changes noted in the dictated addendum note Assessment: Vital Signs/I&O: Vital Signs Date Time Temp Pulse Resp B/P (MAP) Pulse Ox O2 Delivery O2 Flow Rate FiO2 07/16/19 20:29 95 Room Air 07/16/19 15:58 98.1 83 20 127/76 (93) I & O 07/15/19 07/15/19 07/16/19 15:00 23:00 07:00 Intake Total 960 ml 600 ml Balance 960 ml 600 ml Current Medications: Meds: Current Medications Medications (Trade) Dose Ordered Sig/Jesse Route PRN Reason Start Time Stop Time Status Last Admin Dose Admin Trazodone HCl (Desyrel) 100 mg QHS PO 07/16/19 21:00 07/16/19 19:36 I have reviewed the current psychotropics carefully including drug interactions. Risk benefit ratio favors no change other than as noted in my dictated progress note. Diagnosis: Problems: (1) Anxiety disorder (2) Bipolar 1 disorder, mixed, moderate (3) Dementia, vascular, with delusions (4) Dementia, vascular, with depression (5) Dementia in Alzheimer's disease with depression (6) Dementia in Alzheimer's disease with delusions (7) Impulse control disorder ANGEL VILLA MD Jul 16, 2019 21:38
--- NOTE | 2019-07-16 23:38 | PN ---
DATE: 07/15/2019 PSYCHIATRIC PROGRESS NOTE This late entry 07/15/2019 covers the elements not covered in my initial note. SUBJECTIVE: I met with the patient in the evening of 07/15/2019. The patient slept 4 hours previous night and we will change the trazodone to schedule because she does not get the p.r.n. until around midnight since she falls asleep reasonably well, but then awakens around midnight, giving the scheduled around 8:30 p.m. should help. She was up at 3:00 a.m. REVIEW OF SYSTEMS: Ambulation impaired, in wheelchair. No CV, , pulmonary, eye system symptoms on review. MENTAL STATUS EXAMINATION: The patient is oriented to herself and situation. 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 Speech coherent, somewhat rapid at times. Abstraction fair, computation impaired, language function intact, attention span short. Mood and affect remains somewhat grandiose at times, but improved. LABORATORY DATA: Reviewed. IMPRESSION: Unchanged from initial note. PLAN: No change from initial note. I have a message to call her Teddy RAMIREZ and I will try and call her morning of 07/16/2019. ANGEL VILLA MD DR: TOMI/rusty JOB#: [id number] / [id number]
--- NOTE | 2019-07-16 23:38 | PN ---
DATE: 07/14/2019 PSYCHIATRIC PROGRESS NOTE This late entry, 07/14, covers elements not covered in my initial note. SUBJECTIVE: I met with the patient evening of 07/14. The patient slept 5-3/4 hours previous night. The patient remains somewhat anxious, slightly labile in her mood at times, grandiose. She has been writing excessively and profusely in a notebook about how to build a tricycle from two bicycles. She spent an inordinate amount of time trying to explain this to me, quite circumstantial. She slept 5-3/4 hours previous night, somewhat paranoid. REVIEW OF SYSTEMS: Ambulation impaired, in wheelchair. No CV, , pulmonary, eye, ENT system symptoms on review. MENTAL STATUS EXAM: Reasonably oriented to herself and situation. Speech is coherent, rapid at times. Abstraction fair, computation impaired, language function intact, attention span short. Mood and affect, somewhat grandiose, labile. LABORATORY DATA: Reviewed. IMPRESSION: Unchanged from initial note. PLAN: No change from initial note, but we will go ahead and increase the Risperdal from 0.75 mg at bedtime to 1 mg at bedtime. Rest unchanged. ANGEL VILLA MD DR: TOMI/rusty JOB#: [id number] / [id number]
[2019-07-17] MEDS: ALBUTEROL SULFATE 2.5 MG/3 ML NEBU. NEB SCH ×4 (05:31→20:01)
[2019-07-17 05:54] VITALS: BP 106/70
[2019-07-17] MEDS: NICOTINE 21MG PATCH. TD SCH (08:00)
[2019-07-17] MEDS: LACTOBACILLUS RHAMNOSUS GG 1 CAPSULE. PO SCH ×2 (08:00→20:05)
[2019-07-17] MEDS: FUROSEMIDE 40 MG TABLET PO SCH (08:01)
[2019-07-17] MEDS: OXYBUTYNIN CHLORIDE 5 MG TABLET PO SCH ×2 (08:02→20:04)
[2019-07-17] MEDS: CHOLECALCIFEROL (VITAMIN D3) 1,000 UNIT TABLET PO SCH (08:03)
[2019-07-17] MEDS: buPROPion XL 300 MG TAB.ER.24H. PO SCH (08:03)
[2019-07-17] MEDS: ASPIRIN ENTERIC COATED 325 MG TABLET.DR. PO SCH (08:03)
[2019-07-17] MEDS: CALCIUM CARB/VIT D3 500/200 TABLET PO SCH ×2 (08:03→20:04)
[2019-07-17] MEDS: GABAPENTIN 300 MG CAPSULE. PO SCH (08:03)
[2019-07-17] MEDS: MULTIVITAMIN with MINERAL TABLET. PO SCH (08:03)
[2019-07-17] MEDS: CETIRIZINE HCL 10 MG TABLET PO SCH (08:03)
[2019-07-17] MEDS: BUDESONIDE 0.5 MG/2 ML NEBU NEB SCH ×2 (09:16→20:01)
[2019-07-17 16:27] VITALS: BP 107/65
[2019-07-17] MEDS: ATORVASTATIN CALCIUM 20 MG TABLET PO SCH (20:05)
[2019-07-17] MEDS: lamoTRIgine 100 MG TABLET. PO SCH (20:05)
[2019-07-17] MEDS: traZODone 50 MG TABLET. PO SCH (20:06)
[2019-07-17] MEDS: risperiDONE 1 MG TABLET. PO SCH (20:06)
[2019-07-17] MEDS: GABAPENTIN 400 MG CAPSULE. PO SCH (20:07)
--- NOTE | 2019-07-17 22:10 | PDOC ---
Exam Note: Vick Note: Please also refer to the separate dictated note~for this date of service dictated separately.~Patient seen individually. Discussed the patient with Nursing staff reviewed the chart.~Reviewed interim history and current functioning. Reviewed vital signs,~Labs/ Radiology~and current medications noted below. Continue current treatment with the changes noted in the dictated addendum note Assessment: Vital Signs/I&O: Vital Signs Date Time Temp Pulse Resp B/P (MAP) Pulse Ox O2 Delivery O2 Flow Rate FiO2 07/17/19 20:12 95 Room Air 07/17/19 16:27 98.1 70 20 107/65 (79) I & O 07/16/19 07/16/19 07/17/19 15:00 23:00 07:00 Intake Total 840 ml 240 ml 240 ml Balance 840 ml 240 ml 240 ml Current Medications: I have reviewed the current psychotropics carefully including drug interactions. Risk benefit ratio favors no change other than as noted in my dictated progress note. Diagnosis: Problems: (1) Anxiety disorder (2) Bipolar 1 disorder, mixed, moderate (3) Dementia, vascular, with delusions (4) Dementia, vascular, with depression (5) Dementia in Alzheimer's disease with depression (6) Dementia in Alzheimer's disease with delusions (7) Impulse control disorder ANGEL VILLA MD Jul 17, 2019 22:10
--- NOTE | 2019-07-18 03:17 | PN ---
DATE: 07/16/2019 PSYCHIATRIC PROGRESS NOTE This late entry 07/16/2019 covers elements not covered in my initial note. SUBJECTIVE: I met with the patient evening of 07/16/2019. Per TALON Hernández, the patient slept 5 hours previous night. She continues to have some mood lability, tangential, crying and tearful at times and she is hyperverbal. She gets upset regarding prostheses, has gained 15 pounds of weight since admission and fears that her prosthesis will not fit her due to the weight gain. We will go ahead and stop the Remeron 7.5 mg at bedtime that could contribute to the weight gain and increase trazodone from 50 mg at bedtime p.r.n. to 100 mg at bedtime and may repeat x 1 p.r.n. insomnia. She remains on Neurontin, Zyprexa p.r.n., Wellbutrin, Lamictal, Risperdal 1 mg at bedtime. I had a conference call with [facility] staff and [facility] who is the patient's DPOA about discharge plans. [facility] does not feel the patient can function back in her mobile home and [facility] is unable to provide services, but [facility] is working with nursing facilities in the [place] to help facilitate an appropriate transfer. REVIEW OF SYSTEMS: Ambulation impaired. No CV, , pulmonary, eye, ENT system symptoms on review. MENTAL STATUS EXAM: Reasonably oriented. Speech coherent, rapid at times. Abstraction fair, computation impaired, language function intact, attention span short. Mood and affect remain somewhat anxious, labile. LABORATORY DATA: Reviewed. IMPRESSION: Unchanged from initial note. PLAN: No change from initial note. MAN Shai VILLA MD DR: TOMI/rusty JOB#: [id number] / [id number]
[2019-07-18] MEDS: ALBUTEROL SULFATE 2.5 MG/3 ML NEBU. NEB SCH ×4 (04:54→20:03)
[2019-07-18 05:49] VITALS: BP 101/66
[2019-07-18] MEDS: NICOTINE 21MG PATCH. TD SCH (07:56)
[2019-07-18] MEDS: LACTOBACILLUS RHAMNOSUS GG 1 CAPSULE. PO SCH ×2 (07:57→19:28)
[2019-07-18] MEDS: GABAPENTIN 300 MG CAPSULE. PO SCH (07:57)
[2019-07-18] MEDS: buPROPion XL 300 MG TAB.ER.24H. PO SCH (07:57)
[2019-07-18] MEDS: FUROSEMIDE 40 MG TABLET PO SCH (07:57)
[2019-07-18] MEDS: MULTIVITAMIN with MINERAL TABLET. PO SCH (07:57)
[2019-07-18] MEDS: CHOLECALCIFEROL (VITAMIN D3) 1,000 UNIT TABLET PO SCH (07:57)
[2019-07-18] MEDS: ASPIRIN ENTERIC COATED 325 MG TABLET.DR. PO SCH (07:57)
[2019-07-18] MEDS: CETIRIZINE HCL 10 MG TABLET PO SCH (07:57)
[2019-07-18] MEDS: OXYBUTYNIN CHLORIDE 5 MG TABLET PO SCH ×2 (07:58→19:29)
[2019-07-18] MEDS: CALCIUM CARB/VIT D3 500/200 TABLET PO SCH ×2 (07:58→19:30)
[2019-07-18] MEDS: BUDESONIDE 0.5 MG/2 ML NEBU NEB SCH ×2 (08:00→20:03)
[2019-07-18 16:01] VITALS: BP 103/64
[2019-07-18] MEDS ORDERED: ACETAMINOPHEN 325 MG TABLET PO PRN (18:15)
[2019-07-18] MEDS: traZODone 50 MG TABLET. PO SCH (19:29)
[2019-07-18] MEDS: lamoTRIgine 100 MG TABLET. PO SCH (19:29)
[2019-07-18] MEDS: ATORVASTATIN CALCIUM 20 MG TABLET PO SCH (19:30)
[2019-07-18] MEDS: risperiDONE 1 MG TABLET. PO SCH (19:30)
[2019-07-18] MEDS: GABAPENTIN 400 MG CAPSULE. PO SCH (19:30)
--- NOTE | 2019-07-18 21:25 | PDOC ---
Exam Note: Vick Note: Please also refer to the separate dictated note~for this date of service dictated separately.~Patient seen individually. Discussed the patient with Nursing staff reviewed the chart.~Reviewed interim history and current functioning. Reviewed vital signs,~Labs/ Radiology~and current medications noted below. Continue current treatment with the changes noted in the dictated addendum note Assessment: Vital Signs/I&O: Vital Signs Date Time Temp Pulse Resp B/P (MAP) Pulse Ox O2 Delivery O2 Flow Rate FiO2 07/18/19 20:11 95 Room Air 07/18/19 16:01 98.3 91 18 103/64 (77) I & O 07/17/19 07/17/19 07/18/19 14:59 22:59 06:59 Intake Total 840 ml 240 ml 120 ml Balance 840 ml 240 ml 120 ml Current Medications: Meds: Current Medications Medications (Trade) Dose Ordered Sig/Jesse Route PRN Reason Start Time Stop Time Status Last Admin Dose Admin Acetaminophen (Tylenol) 650 mg PRN Q6HRS PRN PO PAIN 07/18/19 18:15 07/18/19 19:35 I have reviewed the current psychotropics carefully including drug interactions. Risk benefit ratio favors no change other than as noted in my dictated progress note. Diagnosis: Problems: (1) Anxiety disorder (2) Bipolar 1 disorder, mixed, moderate (3) Dementia, vascular, with delusions (4) Dementia, vascular, with depression (5) Dementia in Alzheimer's disease with depression (6) Dementia in Alzheimer's disease with delusions (7) Impulse control disorder ANGEL VILLA MD Jul 18, 2019 21:25
--- NOTE | 2019-07-19 03:46 | PN ---
DATE: 07/17/2019 PSYCHIATRIC PROGRESS NOTE This late entry 07/17/2019 covers elements not covered in my initial note. SUBJECTIVE: I met with the patient evening of 07/17/2019. The patient slept 6-3/4 hours previous night. She has been pleasant, according to Elza, nursing staff, compliant with medications. Less labile, but still has significant amount of hypergraphia. REVIEW OF SYSTEMS: Impaired ambulation. Some stiffness of her lower extremity. No CV, , pulmonary, eye system symptoms on review. MENTAL STATUS EXAMINATION: Reasonably oriented. Speech coherent, less pressured. Abstraction fair, computation impaired, language function intact, attention span short. Mood and affect, intermittently anxious, labile. LABORATORY DATA: Reviewed. IMPRESSION: Unchanged from initial note. PLAN: No change from initial note. MAN Shai VILLA MD DR: TOMI/rusty JOB#: [id number] / [id number]
[2019-07-19] MEDS: ALBUTEROL SULFATE 2.5 MG/3 ML NEBU. NEB SCH ×3 (04:58→20:00)
[2019-07-19 05:35] VITALS: BP 103/69
[2019-07-19] MEDS: ALENDRONATE SODIUM 35 MG TABLET PO SCH (05:59)
[2019-07-19] MEDS: buPROPion XL 300 MG TAB.ER.24H. PO SCH (08:00)
[2019-07-19] MEDS: MULTIVITAMIN with MINERAL TABLET. PO SCH (08:00)
[2019-07-19] MEDS: CHOLECALCIFEROL (VITAMIN D3) 1,000 UNIT TABLET PO SCH (08:00)
[2019-07-19] MEDS: FUROSEMIDE 40 MG TABLET PO SCH (08:00)
[2019-07-19] MEDS: GABAPENTIN 300 MG CAPSULE. PO SCH (08:00)
[2019-07-19] MEDS: CALCIUM CARB/VIT D3 500/200 TABLET PO SCH ×2 (08:00→19:56)
[2019-07-19] MEDS: LACTOBACILLUS RHAMNOSUS GG 1 CAPSULE. PO SCH ×2 (08:01→19:57)
[2019-07-19] MEDS: NICOTINE 21MG PATCH. TD SCH (08:01)
[2019-07-19] MEDS: ASPIRIN ENTERIC COATED 325 MG TABLET.DR. PO SCH (08:01)
[2019-07-19] MEDS: OXYBUTYNIN CHLORIDE 5 MG TABLET PO SCH ×2 (08:01→19:57)
[2019-07-19] MEDS: CETIRIZINE HCL 10 MG TABLET PO SCH (08:01)
[2019-07-19] MEDS: BUDESONIDE 0.5 MG/2 ML NEBU NEB SCH ×2 (11:09→20:00)
[2019-07-19 16:45] VITALS: BP 107/72
[2019-07-19] MEDS: GABAPENTIN 400 MG CAPSULE. PO SCH (19:55)
[2019-07-19] MEDS: risperiDONE 1 MG TABLET. PO SCH (19:56)
[2019-07-19] MEDS: ATORVASTATIN CALCIUM 20 MG TABLET PO SCH (19:56)
[2019-07-19] MEDS: lamoTRIgine 100 MG TABLET. PO SCH (19:56)
[2019-07-19] MEDS: traZODone 50 MG TABLET. PO SCH (19:57)
--- NOTE | 2019-07-19 21:44 | PDOC ---
Exam Note: Vick Note: Please also refer to the separate dictated note~for this date of service dictated separately.~Patient seen individually. Discussed the patient with Nursing staff reviewed the chart.~Reviewed interim history and current functioning. Reviewed vital signs,~Labs/ Radiology~and current medications noted below. Continue current treatment with the changes noted in the dictated addendum note Assessment: Vital Signs/I&O: Vital Signs Date Time Temp Pulse Resp B/P (MAP) Pulse Ox O2 Delivery O2 Flow Rate FiO2 07/19/19 20:00 96 Room Air 07/19/19 16:45 98.2 102 16 107/72 (84) 90.0 I & O 07/18/19 07/18/19 07/19/19 15:00 23:00 07:00 Intake Total 960 ml 240 ml Balance 960 ml 240 ml Current Medications: I have reviewed the current psychotropics carefully including drug interactions. Risk benefit ratio favors no change other than as noted in my dictated progress note. Diagnosis: Problems: (1) Anxiety disorder (2) Bipolar 1 disorder, mixed, moderate (3) Dementia, vascular, with delusions (4) Dementia, vascular, with depression (5) Dementia in Alzheimer's disease with depression (6) Dementia in Alzheimer's disease with delusions (7) Impulse control disorder ANGEL VILLA MD Jul 19, 2019 21:44
[2019-07-20] MEDS: ALBUTEROL SULFATE 2.5 MG/3 ML NEBU. NEB SCH ×4 (05:07→20:00)
[2019-07-20 05:51] VITALS: BP 121/77
[2019-07-20 06:57] LABS: BACTERIA,URINE MANY /HPF (0-FEW); BILIRUBIN,URINE NEG (NEG); CLARITY,URINE TURBID; COLOR,URINE YELLOW; GLUCOSE,URINE NEG (NEG); NITRITE,URINE POS (NEG); SQUAMOUS EPITHELIAL CELL,UR OCC /LPF; UROBILINOGEN,URINE 0.2 mg/dL (0.2 mg/dL); WBC,URINE >40 /HPF (0-4)
[2019-07-20] MEDS: LACTOBACILLUS RHAMNOSUS GG 1 CAPSULE. PO SCH ×2 (07:57→19:34)
[2019-07-20] MEDS: FUROSEMIDE 40 MG TABLET PO SCH (07:57)
[2019-07-20] MEDS: OXYBUTYNIN CHLORIDE 5 MG TABLET PO SCH ×2 (07:57→19:34)
[2019-07-20] MEDS: NICOTINE 21MG PATCH. TD SCH (07:57)
[2019-07-20] MEDS: ASPIRIN ENTERIC COATED 325 MG TABLET.DR. PO SCH (07:57)
[2019-07-20] MEDS: CETIRIZINE HCL 10 MG TABLET PO SCH (07:57)
[2019-07-20] MEDS: CALCIUM CARB/VIT D3 500/200 TABLET PO SCH ×2 (07:57→19:35)
[2019-07-20] MEDS: MULTIVITAMIN with MINERAL TABLET. PO SCH (07:57)
[2019-07-20] MEDS: buPROPion XL 300 MG TAB.ER.24H. PO SCH (07:58)
[2019-07-20] MEDS: CHOLECALCIFEROL (VITAMIN D3) 1,000 UNIT TABLET PO SCH (07:58)
[2019-07-20] MEDS: GABAPENTIN 300 MG CAPSULE. PO SCH (07:59)
[2019-07-20] MEDS: BUDESONIDE 0.5 MG/2 ML NEBU NEB SCH ×2 (09:53→20:00)
[2019-07-20 16:16] VITALS: BP 103/69
--- NOTE | 2019-07-20 18:51 | PN ---
DATE: 07/18/2019 PSYCHIATRIC PROGRESS NOTE This late entry 07/18/2019 covers the elements not covered in my initial note. SUBJECTIVE: I met with the patient in the evening of 07/18/2019. The patient slept 6-3/4 hours previous night per Edgar. She has done better during the day on 07/18/2019. Complains of some leg cramps. We will defer to Dr. Nelson. REVIEW OF SYSTEMS: Ambulation impaired, in wheelchair and she has a prosthesis. No CV, , pulmonary, eye, ENT system symptoms on review. MENTAL STATUS EXAM: Reasonably oriented. Speech coherent, still a little pressured at times. Abstraction fair, computation impaired, language function intact. Mood and affect, lability is improved. LABORATORY DATA: Reviewed. IMPRESSION: Unchanged from initial note. PLAN: No change from initial note. MAN Shai VILLA MD DR: TOMI/rusty JOB#: [id number] / [id number]
[2019-07-20] MEDS: GABAPENTIN 400 MG CAPSULE. PO SCH (19:34)
--- NOTE | 2019-07-20 19:34 | PN ---
DATE: 07/19/2019 This late entry of 07/19/2019 covers elements not covered in my initial note. SUBJECTIVE: I met with the patient in the evening and staffed at a treatment team meeting with the entire team in the morning. The patient slept 6 hours. Appetite 75-100%. She is pleasant, compliant, and interactive with meds and assessment. REVIEW OF SYSTEMS: Ambulation impaired, in a wheelchair. She has a prosthesis. No CV, , pulmonary, eye system symptoms on review. MENTAL STATUS EXAM: Reasonably oriented. Speech coherent, a little pressured at times. Abstraction fair, computation impaired, language function intact. Mood and affect, lability is improved. LABORATORY DATA: Reviewed. IMPRESSION: Unchanged from initial note. PLAN: No change from initial note. She has been refused by various nursing homes, may have to return to [facility]. ANGEL VILLA MD DR: TOMI/rusty JOB#: [id number] / [id number]
[2019-07-20] MEDS: ATORVASTATIN CALCIUM 20 MG TABLET PO SCH (19:35)
[2019-07-20] MEDS: lamoTRIgine 100 MG TABLET. PO SCH (19:35)
[2019-07-20] MEDS: risperiDONE 1 MG TABLET. PO SCH (19:35)
[2019-07-20] MEDS: traZODone 50 MG TABLET. PO SCH (19:35)
--- NOTE | 2019-07-20 21:34 | PDOC ---
Exam Note: Vick Note: Please also refer to the separate dictated note~for this date of service dictated separately.~Patient seen individually. Discussed the patient with Nursing staff reviewed the chart.~Reviewed interim history and current functioning. Reviewed vital signs,~Labs/ Radiology~and current medications noted below. Continue current treatment with the changes noted in the dictated addendum note Assessment: Vital Signs/I&O: Vital Signs Date Time Temp Pulse Resp B/P (MAP) Pulse Ox O2 Delivery O2 Flow Rate FiO2 07/20/19 20:10 96 Room Air 07/20/19 16:16 98.0 87 18 103/69 (80) 07/19/19 16:45 90.0 I & O 07/19/19 07/19/19 07/20/19 15:00 23:00 07:00 Intake Total 1440 ml 360 ml 120 ml Balance 1440 ml 360 ml 120 ml Labs: Laboratory Tests Test 07/20/19 06:35 Urine Collection Type Unknown Urine Color Yellow Urine Clarity Turbid Urine pH 6.0 Urine Specific Brady 1.010 Urine Protein Neg (NEG-TRACE) Urine Glucose (UA) Neg mg/dL (NEG) Urine Ketones (Stick) Neg mg/dL (NEG) Urine Blood Small (NEG) Urine Nitrite Pos (NEG) Urine Bilirubin Neg (NEG) Urine Urobilinogen Dipstick 0.2 mg/dL (0.2 mg/dL) Urine Leukocyte Esterase Large (NEG) Urine RBC 3-5 /HPF (0-2) Urine WBC >40 /HPF (0-4) Urine Squamous Epithelial Cells Occ /LPF Urine Bacteria Many /HPF (0-FEW) Current Medications: I have reviewed the current psychotropics carefully including drug interactions. Risk benefit ratio favors no change other than as noted in my dictated progress note. Diagnosis: Problems: (1) Anxiety disorder (2) Bipolar 1 disorder, mixed, moderate (3) Dementia, vascular, with delusions (4) Dementia, vascular, with depression (5) Dementia in Alzheimer's disease with depression (6) Dementia in Alzheimer's disease with delusions (7) Impulse control disorder ANGEL VILLA MD Jul 20, 2019 21:34
[2019-07-21 05:45] VITALS: BP 101/67
[2019-07-21] MEDS: ALBUTEROL SULFATE 2.5 MG/3 ML NEBU. NEB SCH ×4 (05:58→20:11)
[2019-07-21] MEDS: NICOTINE 21MG PATCH. TD SCH (08:11)
[2019-07-21] MEDS: FUROSEMIDE 40 MG TABLET PO SCH (08:14)
[2019-07-21] MEDS: LACTOBACILLUS RHAMNOSUS GG 1 CAPSULE. PO SCH ×2 (08:14→19:29)
[2019-07-21] MEDS: OXYBUTYNIN CHLORIDE 5 MG TABLET PO SCH ×2 (08:14→19:30)
[2019-07-21] MEDS: buPROPion XL 300 MG TAB.ER.24H. PO SCH (08:14)
[2019-07-21] MEDS: ASPIRIN ENTERIC COATED 325 MG TABLET.DR. PO SCH (08:14)
[2019-07-21] MEDS: MULTIVITAMIN with MINERAL TABLET. PO SCH (08:14)
[2019-07-21] MEDS: CETIRIZINE HCL 10 MG TABLET PO SCH (08:14)
[2019-07-21] MEDS: CALCIUM CARB/VIT D3 500/200 TABLET PO SCH ×2 (08:14→19:30)
[2019-07-21] MEDS: CHOLECALCIFEROL (VITAMIN D3) 1,000 UNIT TABLET PO SCH (08:14)
[2019-07-21] MEDS: GABAPENTIN 300 MG CAPSULE. PO SCH (08:17)
[2019-07-21 09:32] LABS: BASO % 0 % (0-3); EOS # 0.1 x10^3/uL (0.0-0.7); EOS % 2 % (0-3); HEMATOCRIT 36.8 % (36.0-47.0); HEMOGLOBIN 12.2 g/dL (12.0-15.5); LYMPH # 1.1 x10^3/uL (1.0-4.8); LYMPH % 15 % (24-48); MEAN CORPUSCULAR HEMOGLOBIN 33 pg (25-35); MEAN CORPUSCULAR HGB CONC 33 g/dL (31-37); MEAN CORPUSCULAR VOLUME 98 fL (79-100); MONO # 0.6 x10^3/uL (0.0-1.1); MONO % 8 % (0-9); NEUT # 5.6 x10^3uL (1.8-7.7); NEUT % 76 % (31-73); PLATELET COUNT 181 x10^3/uL (140-400); RED BLOOD COUNT 3.74 x10^6/uL (3.50-5.40); RED CELL DISTRIBUTION WIDTH 13.7 % (11.5-14.5); WHITE BLOOD COUNT 7.4 x10^3/uL (4.0-11.0)
[2019-07-21 09:33] LABS: ALBUMIN 3.2 g/dL (3.4-5.0); ALBUMIN/GLOBULIN RATIO 0.7 (1.0-1.7); CALCIUM 9.6 mg/dL (8.5-10.1); CREATININE 1.2 mg/dL (0.6-1.0); GFR 44.7; MAGNESIUM 2.3 mg/dL (1.8-2.4); POTASSIUM 4.5 mmol/L (3.5-5.1); TOTAL BILIRUBIN 0.3 mg/dL (0.2-1.0); TOTAL PROTEIN 7.5 g/dL (6.4-8.2)
[2019-07-21] MEDS: BUDESONIDE 0.5 MG/2 ML NEBU NEB SCH ×2 (11:18→20:11)
[2019-07-21 15:38] VITALS: BP 113/74
[2019-07-21] MEDS: ATORVASTATIN CALCIUM 20 MG TABLET PO SCH (19:29)
[2019-07-21] MEDS: risperiDONE 1 MG TABLET. PO SCH (19:30)
[2019-07-21] MEDS: traZODone 50 MG TABLET. PO SCH (19:30)
[2019-07-21] MEDS: lamoTRIgine 100 MG TABLET. PO SCH (19:31)
[2019-07-21] MEDS: GABAPENTIN 400 MG CAPSULE. PO SCH (19:31)
--- NOTE | 2019-07-21 20:06 | PN ---
DATE: 07/20/2019 PSYCHIATRIC PROGRESS NOTE This late entry 07/20/2019 covers elements not covered in my initial note. SUBJECTIVE: I met with the patient evening of 07/20/2019. Per Leah, nursing report, the patient slept 6-1/2 hours previous night. UA is positive. Culture report is awaited. Generally, the patient has been less labile in her mood, less irritable, less paranoid. REVIEW OF SYSTEMS: Ambulation impaired. No CV, , pulmonary, eye system symptoms on review. MENTAL STATUS EXAM: Reasonably oriented. Speech is coherent, abstraction fair, computation impaired, language function intact. Mood and affect is improved, less anxious, labile and less manic. LABORATORY DATA: Reviewed. IMPRESSION: Unchanged from initial note. PLAN: No change from initial note. MAN Shai VILLA MD DR: TOMI/rusty JOB#: [id number] / [id number]
--- NOTE | 2019-07-21 20:36 | PN ---
DATE: 07/21/2019 PSYCHIATRIC PROGRESS NOTE This note covers elements not covered in my initial note 07/21/2019. SUBJECTIVE: I met with patient in the morning. The patient slept 7-1/4 hours previous night. Her UA was foul smelling and has reflux to culture. In the meantime, patient is somewhat withdrawn. I met with her at great length. She talked about how she met her when they were in [employer] [facility] in [place]. 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 They had 2 children, 1 son and 1 daughter. The daughter is currently a teacher in [employer] and son lives in this area. She has several grandchildren, but states her children have been busy in their own life and unable to provide the power of defense attorney for her medical and other needs and therefore she opted for Teddy, who is a lady who lives in the [place] she lives [place]. She was quite coherent, appropriate. REVIEW OF SYSTEMS: Ambulation impaired, in wheelchair. No CV, , pulmonary, eye system symptoms on review. Does have some dysuria. MENTAL STATUS EXAM: Reasonably oriented. Speech is coherent, abstraction fair, computation impaired, language function intact, attention span short. Mood and affect somewhat withdrawn. LABORATORY DATA: Reviewed. IMPRESSION: Unchanged from initial note including urinary tract infection. PLAN: No change from initial note. Treat the UTI. Plan is to discharge her on Tuesday, but if the UTI is not adequately addressed, we may postpone the discharge for a day or two to address this and she lives by herself in a mobile home and even though she did have in-home services, I would like to make sure the UTI is addressed adequately before she leaves. Dr. Lowe will cover for me for the next couple of days. MAN Shai VILLA MD DR: TOMI/rusty JOB#: [id number] / [id number]
--- NOTE | 2019-07-21 21:50 | PDOC ---
Exam Note: Vick Note: Please also refer to the separate dictated note~for this date of service dictated separately.~Patient seen individually. Discussed the patient with Nursing staff reviewed the chart.~Reviewed interim history and current functioning. Reviewed vital signs,~Labs/ Radiology~and current medications noted below. Continue current treatment with the changes noted in the dictated addendum note Assessment: Vital Signs/I&O: Vital Signs Date Time Temp Pulse Resp B/P (MAP) Pulse Ox O2 Delivery O2 Flow Rate FiO2 07/21/19 20:15 97 Room Air 07/21/19 15:38 98.4 90 18 113/74 (87) 07/19/19 16:45 90.0 I & O 07/20/19 07/20/19 07/21/19 15:00 23:00 07:00 Intake Total 600 ml 840 ml Balance 600 ml 840 ml Labs: Laboratory Tests Test 07/21/19 07:55 White Blood Count 7.4 x10^3/uL (4.0-11.0) Red Blood Count 3.74 x10^6/uL (3.50-5.40) Hemoglobin 12.2 g/dL (12.0-15.5) Hematocrit 36.8 % (36.0-47.0) Mean Corpuscular Volume 98 fL (79-100) Mean Corpuscular Hemoglobin 33 pg (25-35) Mean Corpuscular Hemoglobin Concent 33 g/dL (31-37) Red Cell Distribution Width 13.7 % (11.5-14.5) Platelet Count 181 x10^3/uL (140-400) Neutrophils (%) (Auto) 76 % (31-73) H Lymphocytes (%) (Auto) 15 % (24-48) L Monocytes (%) (Auto) 8 % (0-9) Eosinophils (%) (Auto) 2 % (0-3) Basophils (%) (Auto) 0 % (0-3) Neutrophils # (Auto) 5.6 x10^3uL (1.8-7.7) Lymphocytes # (Auto) 1.1 x10^3/uL (1.0-4.8) Monocytes # (Auto) 0.6 x10^3/uL (0.0-1.1) Eosinophils # (Auto) 0.1 x10^3/uL (0.0-0.7) Basophils # (Auto) 0.0 x10^3/uL (0.0-0.2) Sodium Level 137 mmol/L (136-145) Potassium Level 4.5 mmol/L (3.5-5.1) Chloride Level 100 mmol/L (98-107) Carbon Dioxide Level 28 mmol/L (21-32) Anion Gap 9 (6-14) Blood Urea Nitrogen 28 mg/dL (7-20) H Creatinine 1.2 mg/dL (0.6-1.0) H Estimated GFR (Cockcroft-Gault) 44.7 BUN/Creatinine Ratio 23 (6-20) H Glucose Level 99 mg/dL (70-99) Calcium Level 9.6 mg/dL (8.5-10.1) Magnesium Level 2.3 mg/dL (1.8-2.4) Total Bilirubin 0.3 mg/dL (0.2-1.0) Aspartate Amino Transferase (AST) 26 U/L (15-37) Alanine Aminotransferase (ALT) 19 U/L (14-59) Alkaline Phosphatase 173 U/L (46-116) H Total Protein 7.5 g/dL (6.4-8.2) Albumin 3.2 g/dL (3.4-5.0) L Albumin/Globulin Ratio 0.7 (1.0-1.7) L Current Medications: I have reviewed the current psychotropics carefully including drug interactions. Risk benefit ratio favors no change other than as noted in my dictated progress note. Diagnosis: Problems: (1) Anxiety disorder (2) Bipolar 1 disorder, mixed, moderate (3) Dementia, vascular, with delusions (4) Dementia, vascular, with depression (5) Dementia in Alzheimer's disease with depression (6) Dementia in Alzheimer's disease with delusions (7) Impulse control disorder ANGEL VILLA MD Jul 21, 2019 21:50
[2019-07-22] MEDS: ALBUTEROL SULFATE 2.5 MG/3 ML NEBU. NEB SCH ×4 (05:03→20:03)
[2019-07-22 06:34] VITALS: BP 133/84
[2019-07-22] MEDS: OXYBUTYNIN CHLORIDE 5 MG TABLET PO SCH ×2 (07:42→20:49)
[2019-07-22] MEDS: CETIRIZINE HCL 10 MG TABLET PO SCH (07:42)
[2019-07-22] MEDS: MULTIVITAMIN with MINERAL TABLET. PO SCH (07:42)
[2019-07-22] MEDS: FUROSEMIDE 40 MG TABLET PO SCH (07:42)
[2019-07-22] MEDS: buPROPion XL 300 MG TAB.ER.24H. PO SCH (07:42)
[2019-07-22] MEDS: NICOTINE 21MG PATCH. TD SCH (07:42)
[2019-07-22] MEDS: CHOLECALCIFEROL (VITAMIN D3) 1,000 UNIT TABLET PO SCH (07:43)
[2019-07-22] MEDS: ASPIRIN ENTERIC COATED 325 MG TABLET.DR. PO SCH (07:43)
[2019-07-22] MEDS: CALCIUM CARB/VIT D3 500/200 TABLET PO SCH ×2 (07:43→20:48)
[2019-07-22] MEDS: LACTOBACILLUS RHAMNOSUS GG 1 CAPSULE. PO SCH ×2 (07:43→20:50)
[2019-07-22] MEDS: GABAPENTIN 300 MG CAPSULE. PO SCH (07:44)
[2019-07-22] MEDS: BUDESONIDE 0.5 MG/2 ML NEBU NEB SCH ×2 (10:52→20:03)
[2019-07-22] MEDS ORDERED: MAG355OR12 PO (15:49)
[2019-07-22] MEDS ORDERED: ACET325T9 PO (15:49)
[2019-07-22] MEDS ORDERED: MAGN2400 PO (15:50)
[2019-07-22] MEDS ORDERED: MENT113G6 TP (15:50)
[2019-07-22] MEDS ORDERED: NICO1PAT21 TD (15:51)
[2019-07-22] MEDS ORDERED: NITR100C62 PO (15:52)
[2019-07-22] MEDS ORDERED: LAMO100T5 PO (15:53)
[2019-07-22] MEDS ORDERED: BUPR300T3 PO (15:53)
[2019-07-22] MEDS ORDERED: RISP1TAB3 PO (15:54)
[2019-07-22] MEDS ORDERED: TRAZ-86 PO (15:55)
[2019-07-22 16:15] VITALS: BP 115/79
[2019-07-22] MEDS: GABAPENTIN 400 MG CAPSULE. PO SCH (20:47)
[2019-07-22] MEDS: risperiDONE 1 MG TABLET. PO SCH (20:47)
[2019-07-22] MEDS: lamoTRIgine 100 MG TABLET. PO SCH (20:48)
[2019-07-22] MEDS: ATORVASTATIN CALCIUM 20 MG TABLET PO SCH (20:49)
[2019-07-22] MEDS: traZODone 50 MG TABLET. PO SCH (20:50)
[2019-07-22] MEDS: NITROFURANTOIN MONOHYD/M-CRYST 100 MG CAPSULE. PO SCH (20:52)
--- NOTE | 2019-07-23 02:44 | PN ---
DATE: 07/22/2019 SUBJECTIVE: The patient was seen today, met with the staff, chart reviewed and also covering for Dr. Scott. Staff reports that patient is showing improvement and the patient is planned for discharge tomorrow and she will be living by herself and also has home health care. OBSERVATION: VITAL SIGNS: Temperature 97.6, blood pressure 133/84, pulse 90, respiration 18, O2 sat 93%, slept about 6 hours last night. The patient denies of any major problems. The patient is not exhibiting any major mood swings. The patient continues to have some mood swings. MEDICATIONS: The patient's current medications include trazodone 100 mg at night, Risperdal 1 mg at night, Lamictal 125 mg at night, bupropion 300 mg daily, olanzapine 5 mg q. 2 hours p.r.n., gabapentin 600 mg daily and also 800 mg at night. LABORATORY DATA: The patient's lab reviewed. The patient's BUN is 28, creatinine 1.2, alkaline phosphatase 173. ASSESSMENT: 1. Bipolar disorder with psychotic features. 2. Impulse control disorder, unspecified. 3. Generalized anxiety disorder. PLAN: The patient will continue on the current medication. The patient will be discharged tomorrow as planned and continue with the recommendations. DENNYS MARIE MD DR: Kristy JOB#: [id number] / [id number]
[2019-07-23] MEDS: ALBUTEROL SULFATE 2.5 MG/3 ML NEBU. NEB SCH ×2 (04:56→10:45)
[2019-07-23 05:30] VITALS: BP 141/84
[2019-07-23] MEDS: buPROPion XL 300 MG TAB.ER.24H. PO SCH (08:05)
[2019-07-23] MEDS: ASPIRIN ENTERIC COATED 325 MG TABLET.DR. PO SCH (08:05)
[2019-07-23] MEDS: LACTOBACILLUS RHAMNOSUS GG 1 CAPSULE. PO SCH (08:06)
[2019-07-23] MEDS: GABAPENTIN 300 MG CAPSULE. PO SCH (08:06)
[2019-07-23] MEDS: CALCIUM CARB/VIT D3 500/200 TABLET PO SCH (08:06)
[2019-07-23] MEDS: MULTIVITAMIN with MINERAL TABLET. PO SCH (08:06)
[2019-07-23] MEDS: CETIRIZINE HCL 10 MG TABLET PO SCH (08:06)
[2019-07-23] MEDS: FUROSEMIDE 40 MG TABLET PO SCH (08:06)
[2019-07-23] MEDS: NITROFURANTOIN MONOHYD/M-CRYST 100 MG CAPSULE. PO SCH (08:06)
[2019-07-23] MEDS: CHOLECALCIFEROL (VITAMIN D3) 1,000 UNIT TABLET PO SCH (08:07)
[2019-07-23] MEDS: NICOTINE 21MG PATCH. TD SCH (08:07)
[2019-07-23] MEDS: OXYBUTYNIN CHLORIDE 5 MG TABLET PO SCH (08:07)
[2019-07-23] MEDS: BUDESONIDE 0.5 MG/2 ML NEBU NEB SCH (10:45)
[2019-07-23] MEDS ORDERED: TRAZ-86 PO (11:00)
--- NOTE | 2019-07-24 01:10 | DS ---
DATE OF DISCHARGE: 07/23/2019 FINAL DIAGNOSES: AXIS I: 1. Bipolar disorder, mixed, with psychotic features. 2. Major depressive disorder, recurrent, with psychotic features. 3. Major neurocognitive disorder, most likely vascular with delusions and behavioral disturbances. 4. Anxiety disorder, unspecified. AXIS II: None. AXIS III: Left above-knee amputation, cardiac bypass surgery, hypertension, hyperlipidemia, coronary artery disease, peripheral vascular disease, chronic obstructive pulmonary disease, congestive heart failure, osteoporosis, and chronic pain. REASON FOR ADMISSION: This 68-year-old female was [facility] in [place] as transfer from the [facility] because of increasing behavior problems including disorganization, agitation and also hyperverbal and also exhibiting poor impulse control and also paranoid behaviors. The patient apparently was seen in the ER at the [facility] and she was evaluated by Tele-Psychiatry and recommended that she needed inpatient treatment. Staff also observed that the patient was talking different languages switching from one to another during the assessment including [place] Citizen, Chinese, and Mongolian. HISTORY OF PRESENT ILLNESS: The patient apparently has been living at home with her daughter and apparently she is her caregiver. Lately, she has been having problems with sleep and appetite changes and also behavioral changes. The patient apparently was receiving outpatient treatment through the [facility]. Apparently she was not responding to medications. The patient also having multiple physical complaints including COPD and coronary artery disease. The patient also has been depressed, having social phobias, and social isolation. The patient also has a history of fracture of left radius and status post open reduction and internal fixation. 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 She is a smoker. Denied of any alcohol or substance abuse. HOSPITAL COURSE: The patient had a physical exam, routine lab work including CBC, chem profile, urinalysis. The patient did not show any major abnormality with the lab work except for BUN was 28, creatinine 1.2, alkaline phosphatase 173. Urinalysis was negative for any UTI. The patient's urine drug screen was positive for opiates. The patient was involved in treatment including individual therapy, group therapy, activity therapy. The patient was also on nitrofurantoin 100 mg b.i.d., trazodone 100 mg at night and also 100 mg p.r.n. at night for sleep, Risperdal 1 mg at night, Lamictal 125 mg at night, bupropion 300 mg daily. The patient was also on gabapentin 600 mg daily, Lasix 40 mg daily, aspirin 325 mg daily. She was also on albuterol inhaler. She was also on hydrocodone one tablet b.i.d. p.r.n., Lipitor 40 mg at night. She was also on Ditropan. The patient did not present with any major behavior problems during her stay here and she was able to participate in all the activities. The patient did not have any side effects to medications. The patient apparently exhibited some mood swings, some emotional lability, but no evidence of any psychosis or any major cognitive deficits. AFTERCARE PLAN: The patient at the time of discharge was medically stable. The patient was able to interact with the staff and the residents motivated for treatment. The patient did not have any falls. The patient will be returning home. The patient will also receive outpatient services through [facility]. DENNYS MARIE MD DR: ALYSSIA/rusty JOB#: [id number] / [id number]
== END 2019-07-23 15:25 | disposition home health service (06) | DRG 885 ==
LOC: ER 14:45 → GEROPSY 18:20 → ER 20:00
PROVIDERS: ADMIT Psychiatry & Neurology Psychiatry; ATTEND Psychiatry & Neurology Psychiatry
DX: F31.64 Bipolar disorder, current episode mixed, severe, with psychotic features (principal); I50.32 Chronic diastolic (congestive) heart failure; N39.0 Urinary tract infection, site not specified; F01.51 Vascular dementia, unspecified severity, with behavioral disturbance; F02.81 Dementia in other diseases classified elsewhere, unspecified severity, with behavioral disturbance; I11.0 Hypertensive heart disease with heart failure; F41.9 Anxiety disorder, unspecified; F63.9 Impulse disorder, unspecified; G30.9 Alzheimer's disease, unspecified; R32 Unspecified urinary incontinence; K21.9 Gastro-esophageal reflux disease without esophagitis; E78.5 Hyperlipidemia, unspecified; F17.210 Nicotine dependence, cigarettes, uncomplicated; F41.1 Generalized anxiety disorder; F40.10 Social phobia, unspecified; F60.9 Personality disorder, unspecified; G89.29 Other chronic pain; I25.10 Atherosclerotic heart disease of native coronary artery without angina pectoris; I27.20 Pulmonary hypertension, unspecified; I73.9 Peripheral vascular disease, unspecified; J44.9 Chronic obstructive pulmonary disease, unspecified; M81.0 Age-related osteoporosis without current pathological fracture; Z79.82 Long term (current) use of aspirin; Z79.899 Other long term (current) drug therapy; Z80.3 Family history of malignant neoplasm of breast; Z82.49 Family history of ischemic heart disease and other diseases of the circulatory system; Z87.440 Personal history of urinary (tract) infections; Z89.612 Acquired absence of left leg above knee; Z95.1 Presence of aortocoronary bypass graft; Z91.83 Wandering in diseases classified elsewhere
CPT/HCPCS: 36415; 70450; 71045; 80053; 80061; 80307; 81001; 82306; 83036; 83540; 83550; 83735; 84443; 84484; 85025; 86592; 87086; 87186; 93005; 94640; 99406; G0480; J7613; J7626; P9612; 97110; 97116; 97530; 99285-25